=== PATIENT | male | born 1940 | race Caucasian/White ===

== ENCOUNTER 2017-04-23 07:13 | Emergency (ER) | payer BC, OTHER ==
[~2017-04-23] VITALS: Ht 167.6 cm; Wt 80.6 kg
[~2017-04-23 07:13] MED LIST: ALBUAER2 INH; ASCO10003 PO; ASPCH81 PO; CALC500C3 PO; CODCAP4 PO; CYAN100020 PO; FLNIN NAE; HYDR-4313 PO; LEVO125T72 PO; LSNP/30 PO; OMEP40CA41 PO; TIOTCAP INH; TRAM-10 PO
[2017-04-23] MEDS ORDERED: RANITIDINE HCL 50 MG/100 ML D5W IV STA (07:20)
[2017-04-23] MEDS ORDERED: DEXAMETHASONE SOD INJ 4 MG/ML VIAL IV STA (07:20)
[2017-04-23 07:21] VITALS: TEMP 36.5; Ht 167.6 cm; Wt 80.6 kg
--- NOTE | 2017-04-23 07:23 | EMERGENCY ROOM VISIT NOTE ---
History Report prepared by Elaine: Sera Robertson Under the Supervision of: Dr. Jerson Hamm M.D. First contact with patient: 07:11 Stated Complaint: ALLERGIC REACTION History of Present Illness The patient is a 76 year old male who presents to the Emergency Room with complaints of a facial swelling and possible allergic reaction beginning this morning when he woke up. The patient states that he had sinus surgery at [facility] yesterday and had his sinuses cleaned out. He reports that today he woke up with facial swelling and is having difficulty breathing out of his nose. He complains of lip, eye, mouth, and throat swelling. He denies any itchiness, chest pain, shortness of breath, nausea, vomiting, fevers. The patient states that he was unconscious for the surgery and had a breathing tube in during the surgery. He notes that he is not on any blood thinners. He reports that he is on an antibiotic and got Benadryl prior to arrival. Source of History: patient, family Onset: this morning Position: other (facial) Quality: other (allergic reaction) Timing: constant Associated Symptoms: No fevers, No chest pain, No SOB, No nausea, No vomiting Note: He complains of lip, eye, mouth, and throat swelling. He denies any itchiness. Review of Systems See HPI for pertinent positives & negatives. A total of 10 systems reviewed and were otherwise negative. Past Medical & Surgical Medical Problems: (1) Hypertension (2) Hypothyroid Old medical records were reviewed. Nurse's notes were reviewed and I agree with. Family History No pertinent family history stated. Social History Smoking Status: Never Smoker Marital Status: Housing Status: lives with significant other Occupation Status: retired Current/Historical Medications Scheduled Amlodipine (Norvasc), 5 MG PO DAILY Ascorbic Acid (Vitamin C), 1,000 MG PO DAILY Aspirin (Aspirin Ec), 81 MG PO DAILY Atorvastatin (Lipitor), 20 MG PO DAILY Bacitracin Zinc (Bacitracin), 1 APPLN TOP UD Bromfenac Sodium (Ophth) (Prolensa), 1 DOSE UD Calcium (Calcium), 500 MG PO DAILY Clindamycin Hcl (Clindamycin Hcl), 300 MG PO TID Cod Liver Oil (Cod Liver Oil 1000 mg), 1 CAP PO DAILY Emollient (Aquaphilic), 1 APPLN TOP UD Fluticasone Propionate (Nasal) (Flonase Allergy Relief), 2 SPRAYS TAMY DAILY Gatifloxacin (Ophth) (Zymaxid), 1 DROPS OP UD Levothyroxine Sodium (Levothyroxine Sodium), 125 MCG PO DAILY Lisinopril (Zestril), 30 MG PO DAILY Omeprazole (Prilosec), 40 MG PO DAILY Prednisolone Acetate (Ophth) (Pred Forte 1% Oph), 1 DROPS OP UD Saline ([place] Nasal [place]), 2 SPRAYS TAMY 10XDAILY Sildenafil Citrate (Viagra), 50 MG PO PRN Tiotropium [place] (Spiriva [place]), 1 CAP INH DAILY Trazodone Hcl (Trazodone), 50 MG PO HS Scheduled PRN Albuterol Sulfate (Proair Respiclick), 2 PUFFS INH Q4 PRN for Wheezing Hydrocodone/Acetaminophen 5MG/325MG ([place] 5MG/325MG), 1 TABLET PO Q6 PRN for Severe Pain Tramadol (Ultram), 50 MG PO Q6 PRN for Pain Allergies Coded Allergies: Amoxicillin (Verified Allergy, Severe, HIVES, 12/17/15) Sulfa Drugs (Verified Allergy, Severe, HIVES, 12/17/15) Penicillins (Verified Allergy, Intermediate, HIVES, 12/17/15) Physical Exam Vital Signs Date Time Temp Pulse Resp B/P (MAP) Pulse Ox O2 Delivery O2 Flow Rate FiO2 04/23/17 08:40 64 18 161/104 95 04/23/17 07:22 65 04/23/17 07:21 36.5 64 20 183/112 93 Room Air Physical Exam General: Well developed well nourished in no acute distress, breathing comfortably on room air. Normal speech. Older male in no respiratory stress. HEENT: Pupils are equal round and reactive to light. Extraocular movements are intact. Oropharynx is pink with moist mucous membranes. The patient has tape on his nose post operative, he has some swelling under his eyes but no swelling to his tongue or bottom lip. There is mild swelling to the upper slip and posterior oropharynx. He has a cough with occasional red tinged sputum. Neck: Supple with a midline trachea. No meningeal signs or stiffness, no JVD or bruits. No Stridor. Chest: Clear to auscultation bilaterally. No wheezes or rhonchi. No increased work of breathing. Heart: regular rate and rhythm. Abdomen: Soft nontender, nondistended without rebound guarding or rigidity. Extremities: No cyanosis clubbing or edema. No calf tenderness or assymetry Spine/Back. Non tender to palpation. No CVA tenderness Skin: Good turgor without rashes. Neurologic exam: Cranial nerves two through 12 are intact. Motor and sensation are intact and symmetrical throughout. Medical Decision & Procedures Laboratory Results 04/23/17 07:25 Red Blood Count 4.23, Mean Corpuscular Volume 93.4, Mean Corpuscular Hemoglobin 31.4, Mean Corpuscular Hemoglobin Concent 33.7, Mean Platelet Volume 10.3, Neutrophils (%) (Auto) 64.5, Lymphocytes (%) (Auto) 20.2, Monocytes (%) (Auto) 11.6, Eosinophils (%) (Auto) 2.8, Basophils (%) (Auto) 0.5, Neutrophils # (Auto ) 5.29, Lymphocytes # (Auto) 1.66, Monocytes # (Auto) 0.95, Eosinophils # (Auto ) 0.23, Basophils # (Auto) 0.04 04/23/17 07:25 Test 04/23/17 07:25 White Blood Count 8.20 K/uL (4.8-10.8) Red Blood Count 4.23 M/uL (4.7-6.1) Hemoglobin 13.3 g/dL (14.0-18.0) Hematocrit 39.5 % (42-52) Mean Corpuscular Volume 93.4 fL (80-100) Mean Corpuscular Hemoglobin 31.4 pg (25-34) Mean Corpuscular Hemoglobin Concent 33.7 g/dl (32-36) Platelet Count 187 K/uL (130-400) Mean Platelet Volume 10.3 fL (7.4-10.4) Neutrophils (%) (Auto) 64.5 % Lymphocytes (%) (Auto) 20.2 % Monocytes (%) (Auto) 11.6 % Eosinophils (%) (Auto) 2.8 % Basophils (%) (Auto) 0.5 % Neutrophils # (Auto) 5.29 K/uL (1.4-6.5) Lymphocytes # (Auto) 1.66 K/uL (1.2-3.4) Monocytes # (Auto) 0.95 K/uL (0.11-0.59) Eosinophils # (Auto) 0.23 K/uL (0-0.5) Basophils # (Auto) 0.04 K/uL (0-0.2) RDW Standard Deviation 47.9 fL (36.4-46.3) RDW Coefficient of Variation 14.0 % (11.5-14.5) Immature Granulocyte % (Auto) 0.4 % Immature Granulocyte # (Auto) 0.03 K/uL (0.00-0.02) Prothrombin Time 10.7 SECONDS (9.0-12.0) Prothromb Time International Ratio 1.0 (0.9-1.1) Activated Partial Thromboplast Time 26.6 SECONDS (21.0-31.0) Partial Thromboplastin Ratio 1.0 Anion Gap 7.0 mmol/L (3-11) Est Creatinine Clear Calc Drug Dose 46.2 ml/min Estimated GFR () 57.0 Estimated GFR (Non- 49.1 BUN/Creatinine Ratio 14.0 (10-20) Calcium Level 8.7 mg/dl (8.5-10.1) Laboratory studies as stated above per my review. Medications Administered Medications (Trade) Dose Ordered Sig/Nakia Route Start Time Stop Time Status Last Admin Dose Admin Dexamethasone Sodium Phosphate (Decadron Inj) 10 mg NOW STAT IV 04/23/17 07:20 04/23/17 07:22 DC 04/23/17 07:35 10 MG Ranitidine HCl (zANTac IV) 50 mg NOW STAT IV 04/23/17 07:20 04/23/17 07:22 DC 04/23/17 07:35 50 MG ED Course 0715: Past medical records reviewed. The patient was evaluated in room A2, and a complete history and physical examination were performed. 0720: Zantac IV 50mg IV, Decadron Inj 10mg IV. 0725: I spoke to Dr. Farias of ENT. He recommended calling the surgeon. 0812: I spoke to Dr. Man of surgery at [facility]. He is going to call Dr. Monroe and try to get him seen in the clinic today. 0818: I reevaluated the patient. He is unchanged and stable. 0824: I updated the patient and his family. They will be going to [place] for evaluation. 0841: Upon reevaluation, the patient is doing well. I discussed the results and treatment plan with the patient and his family. They verbalized agreement of the treatment plan. The patient was discharged and will be going to the ENT clinic in [place]. Medical Decision Differential diagnosis includes allergic reaction, post operative swelling, infection. Blood pressure Screening: Patient was found to have an elevated blood pressure and was referred to their primary doctor for recheck and further treatment. Medication Reconciliation: I attest that I have personally reviewed the patient' s current medication list. This patient comes in as described above he comes in for possible allergic reaction. On exam, he has facial swelling however he did have significant ENT/ nasal's reconstructive surgery done 2 days ago in [place]. He has no hives. The lips and tongue themselves are not swollen. He does have some swelling of his uvula and underneath his eyes. I think most this is likely postoperative. He appears in no respiratory distress and has no stridor. He had been given Benadryl prior to arrival by EMS and I gave him Solu-Medrol IV as well as Zantac. I called her local ENT doctor who recommended we talk to his surgeon [place]. I talked to Dr. Man in [place] who had attempted to get Dr. Braxton to see the patient however he is out of town. He recommends that we send the patient to ENT clinic in [place]. At this point, I think is likely an allergic reaction but more postoperative swelling which I think is likely to be expected however I do do think that and senior clinical research associate to see this. Dr. Man agrees and the patient was sent by private vehicle down to [place] for further treatment and evaluation by ENT. Consults Time Called: 07 Consulting Physician: Dr. Farias - ENT Returned Call: [address] Farias of ENT. He recommended calling the surgeon. Additional Consults: Time Called: 08 Consulted Physician: Dr. Man - [facility] Returned Call: 08 Additional Comments: I spoke to Dr. Man of surgery at [facility]. He is going to call Dr. Monroe and try to get him seen in the clinic today. Impression Primary Impression: Facial swelling Additional Impression: Post-operative complication Scribe Attestation The scribe's documentation has been prepared under my direction and personally reviewed by me in its entirety. I confirm that the note above accurately reflects all work, treatment, procedures, and medical decision making performed by me. Departure Information Dispostion Home / Self-Care Forms HOME CARE DOCUMENTATION FORM, IMPORTANT VISIT INFORMATION Patient Instructions My [facility] Additional Instructions Go directly to the ENT clinic in [place]. You will see Dr. Man. Take the F elevator to the fourth floor Return if: Worsening symptoms, shortness of breath, fever or chills, any new problems or concerns. Problem Qualifiers
[2017-04-23] MEDS ORDERED: OMEP40CA41 PO (07:42)
[2017-04-23] MEDS ORDERED: ALBU18002 INH (07:42)
[2017-04-23] MEDS ORDERED: EMOLOIN TOP (07:42)
[2017-04-23] MEDS ORDERED: ATOR-22 PO (07:42)
[2017-04-23] MEDS ORDERED: AMLO-110 PO (07:42)
[2017-04-23] MEDS ORDERED: FLUT0.15 NAE (07:42)
[2017-04-23] MEDS ORDERED: GATI0.5S OP (07:42)
[2017-04-23] MEDS ORDERED: BACI1OIN TOP (07:42)
[2017-04-23] MEDS ORDERED: CLIN150C15 PO (07:42)
[2017-04-23] MEDS ORDERED: ASPI81TA28 PO (07:42)
[2017-04-23] MEDS ORDERED: LEVO125T5 PO (07:42)
[2017-04-23] MEDS ORDERED: TRAM-10 PO (07:42)
[2017-04-23] MEDS ORDERED: VGR50 PO (07:42)
[2017-04-23] MEDS ORDERED: LISI1TAB3 PO (07:42)
[2017-04-23] MEDS ORDERED: PRED1SUS3 OP (07:42)
[2017-04-23] MEDS ORDERED: SPRIN/30 INH (07:42)
[2017-04-23] MEDS ORDERED: HYDR-5688 PO (07:42)
[2017-04-23] MEDS ORDERED: ASCO10003 PO (07:42)
[2017-04-23] MEDS ORDERED: SALI0.6510 NAE (07:42)
[2017-04-23] MEDS ORDERED: TRAZ50TA35 PO (07:42)
[2017-04-23] MEDS ORDERED: BROM0.07 (07:42)
[2017-04-23] MEDS ORDERED: CALC500T83 PO (07:42)
[2017-04-23] MEDS ORDERED: COD1000C PO (07:42)
[2017-04-23 07:50] LABS: BASO % 0.5 %; BASO ABS # 0.04 K/uL (0-0.2); COMPLETE YES; EOS % 2.8 %; HEMATOCRIT 39.5 % (42-52); IG% 0.4 %; LYMPH % 20.2 %; LYMPH ABS # 1.66 K/uL (1.2-3.4); MEAN CELL VOLUME 93.4 fL (80-100); MEAN CORPUSCULAR HEMOGLOBIN 31.4 pg (25-34); MEAN CORPUSCULAR HGB CONC 33.7 g/dl (32-36); MEAN PLATELET VOLUME 10.3 fL (7.4-10.4); MONO % 11.6 %; NEUT % 64.5 %; PLATELET COUNT 187 K/uL (130-400); RED BLOOD COUNT 4.23 M/uL (4.7-6.1)
[2017-04-23 08:07] LABS: PROTHROMBIN TIME (PATIENT) 10.7 SECONDS (9.0-12.0)
[2017-04-23 08:20] LABS: CALCIUM 8.7 mg/dl (8.5-10.1); CREATININE 1.4 mg/dl (0.60-1.40); POTASSIUM 4.2 mmol/L (3.5-5.1)
[2017-04-23 08:40] VITALS: BP 161/104; PULSE 64; O2SAT 95
== END 2017-04-23 08:42 | disposition home or self-care (01) ==
LOC: EDBD 07:13 → C.EDA 07:18
DX: R22.0 Localized swelling, mass and lump, head (principal); Z98.890 Other specified postprocedural states; I10 Essential (primary) hypertension; E03.9 Hypothyroidism, unspecified; Z79.82 Long term (current) use of aspirin; Z79.899 Other long term (current) drug therapy

== ENCOUNTER → 2018-01-19 | Outpatient (CLI) | payer BC, OTHER ==
[~2018-01-19] MED LIST changes: +ALBU18002 INH; -ALBUAER2 INH; +AMLO-110 PO; -ASPCH81 PO; +ASPI81TA28 PO; +ATOR-22 PO; +BACI1OIN TOP; +BROM0.07; -CALC500C3 PO; +CALC500T83 PO; +CLIN150C15 PO; +COD1000C PO; -CODCAP4 PO; -CYAN100020 PO; +EMOLOIN TOP; -FLNIN NAE; +FLUT0.15 NAE; +GATI0.5S OP; -HYDR-4313 PO; +HYDR-5688 PO; +LEVO125T5 PO; -LEVO125T72 PO; +LISI1TAB3 PO; -LSNP/30 PO; +PRED1SUS3 OP; +SALI0.6510 NAE; +SPRIN/30 INH; -TIOTCAP INH; +TRAZ50TA35 PO; +VGR50 PO
[2018-01-19 13:08] LABS: BASO % 0.4 %; BASO ABS # 0.03 K/uL (0-0.2); EOS % 7.4 %; EOS ABS # 0.54 K/uL (0-0.5); HEMATOCRIT 40.1 % (42-52); HEMOGLOBIN 13.7 g/dL (14.0-18.0); IG# 0.01 K/uL (0.00-0.02); LYMPH % 14.2 %; LYMPH ABS # 1.04 K/uL (1.2-3.4); MEAN CELL VOLUME 89.7 fL (80-100); MEAN CORPUSCULAR HEMOGLOBIN 30.6 pg (25-34); MEAN CORPUSCULAR HGB CONC 34.2 g/dl (32-36); MEAN PLATELET VOLUME 10.2 fL (7.4-10.4); MONO % 12.1 %; MONO ABS # 0.89 K/uL (0.11-0.59); NEUT % 65.8 %; NEUT ABS # 4.82 K/uL (1.4-6.5); PLATELET COUNT 242 K/uL (130-400); RED CELL DISTRIBUTION WIDTH SD 46.4 fL (36.4-46.3); WHITE BLOOD COUNT 7.33 K/uL (4.8-10.8)
[2018-01-19 13:12] LABS: PTT PATIENT 26.1 SECONDS (21.0-31.0)
[2018-01-19 13:31] LABS: ALT/SGPT 21 U/L (12-78); AST/SGOT 19 U/L (15-37); BLOOD UREA NITROGEN 12 mg/dl (7-18); CALCIUM 9.4 mg/dl (8.5-10.1); CARBON DIOXIDE 26 mmol/L (21-32); GLUCOSE 103 mg/dl (70-99); POTASSIUM 4.2 mmol/L (3.5-5.1); SODIUM 139 mmol/L (136-145)
[2018-01-19 13:33] LABS: ALKALINE PHOSPHATASE 69 U/L (45-117); TOTAL PROTEIN 7.6 gm/dl (6.4-8.2)
== END | disposition home or self-care (01) ==
LOC: C.LAB1850 12:25
PROVIDERS: ATTEND Internal Medicine Pulmonary Disease
DX: J44.9 Chronic obstructive pulmonary disease, unspecified (principal)

== ENCOUNTER → 2018-02-11 | Day surgery (SDC) | payer BC, OTHER ==
[2018-02-11] VITALS (7 sets, daily range): BP systolic 130–175; BP diastolic 69–90; PULSE 52–60; TEMP 36.5–37; O2SAT 95–98; Ht 167.6 cm; Wt 86.7 kg
[~2018-02-11] VITALS: Ht 167.6 cm; Wt 86.7 kg
[~2018-02-11] MED LIST changes: +DEXTROSE 5% 1000ML 500 ML IV SCH; +FENTANYL CITRATE INJ 50 MCG/1 ML 2 ML VIAL IV ONE; +LEVALBUTEROL 1.25MG/3ML NEB INH ONE; +LIDOCAINE 4% INH SOLN 4 ML BTL TOP ONE; +LIDOCAINE HCL 2% LOCAL 50ML VIAL INSTIL ONE; +LIDOCAINE VISCOUS 2% 100ML TOP ONE; +MIDAZOLAM HCL 5 MG/ML 1 ML VIAL IV ONE; +NURSING VERBAL MED ORDER ONE; +OXYMETAZOLINE HCL 0.05% NA SPR 15 ML BTL ONE
--- NOTE | 2018-02-11 07:33 | Pre Sedation Assessment ---
Pre Sedation Assessment General Date of Sedation: Feb 11, 2018. Pre-Sedation Airway Assessment Smoking Status: Never Smoker Mallampati Classification: Class II ASA Classification: Class II Procedure Planning Contraindications for Sedation: None Current Medications Reviewed: Yes Notes The planned sedation has been discussed with the patient. Informed Consent was obtained. I have identified the patient, determined the appropriateness of sedation and have assessed the patient immediately prior to the procedure. All medicine(s) and interventions are by my order.
--- NOTE | 2018-02-11 07:33 | History & Physical Bridge Note ---
H&P Re-Evaluation Bridge Note: I have examined the patient, reviewed the History & Physical and in the interval since the performance of the History & Physical I have noted the following changes of clinical significance: No changes noted
--- NOTE | 2018-02-11 09:47 | Post Sedation Assessment ---
Post Sedation Assessment General Date of Sedation Feb 11, 2018. Vital Signs: Vital Signs Past 12 Hours Date Time Temp Pulse Resp B/P (MAP) Pulse Ox O2 Delivery O2 Flow Rate FiO2 02/11/18 09:40 55 14 137/70 96 Oxymask 6 02/11/18 09:35 60 16 148/83 98 Oxymask 6 02/11/18 09:30 54 16 158/84 100 Oxymask 6 02/11/18 09:25 57 16 149/78 100 Oxymask 6 02/11/18 09:15 55 17 157/99 100 Oxymask 8 02/11/18 08:06 36.9 53 20 134/69 (90) 95 Room Air Post Procedure Recovery Score Activity: (2) Moves 4 extremities * Respiration: (2) Deep breath/cough Circulation: (2) +/-20% PreAnes Value Consciousness: (1) Arouseable (by name) Oxygen Saturation: (1) O2 needed for >90% Post Anesthesia Score: 8 Discharge Sedation Level of Care: Fast Track Phase II Post Sedation Plan On clinical assessment, the patient appears to have tolerated the sedation without complications. Patient is recovering as anticipated. Patient will continue to be monitored by nursing and may be discharged when sedation discharge criteria are met per below protocol. Upon Completions of procedure and additional 15 minutes continue every 5 minute vital signs and the P.A.R. score; then discharge to a Phase I or Fast Track to Phase II per the following guidelines: * Discharge Patient to appropriate Phase II area if PAR is 8 or greater or return to pre- procedure baseline. The post - procedure orders will be as directed. * If PAR score is less than 8 or not return to pre-procedure baseline then patient will follow Phase I monitoring till PAR is reached for Phase II. The Phase I may be done in procedure room or may call to secure a Phase I area. * If naloxone or flumazenil are used for reversal, hold in Phase I for an additional 60 -120 minutes before discharge to Phase II. Please call the Sedation Physician to re-evaluate and complete post-note for discharge to Phase II area. Do NOT discharge from procedure sedation or Phase 1 until post- sedation evaluation note is complete by procedure /sedation MD Sedation Discharge Instructions to be given to the patient at discharge to home.
--- NOTE | 2018-02-11 09:49 | [facility] Operative Report ---
Operative Report Operative Date Feb 11, 2018. Pre-Operative Diagnosis COUGH, DYSPNEA Post-Operative Diagnosis COUGH, DYSPNEA Chronic Mucopurulent Bronchitis Procedure(s) Performed BRONCHOSCOPY Surgeon DR ALVARADO Estimated Blood Loss 0 Findings Chronic Mucopurulent Bronchitis Specimens RIGHT AND LEFT LUNG WASHING Disposition I attest to the content of the Intraoperative Record and any orders documented therein. Any exceptions are noted below.
--- NOTE | 2018-02-11 09:52 | Discharge Instructions ---
Discharge Instructions Date of Service Feb 11, 2018. Admission Reason for Admission: Copd, Cough, Shortness Of Breath Discharge Discharge Diagnosis / Problem: Chronic Mucopurulent Bronchitis Discharge Goals Goal(s): Diagnostic testing Activity Recommendations Activity Limitations: resume your previous activity Lifting Limitations: none Exercise/Sports Limitations: none May Resume Sexual Activity: when tolerated Shower/Bathe: no limitations Driving or Machine Use: resume 1 day after discharge None . Instructions / Follow-Up Instructions / Follow-Up ACTIVITY RECOMMENDATIONS: * Rest today, resume normal activity tomorrow. * Do not drive today. SPECIAL CARE INSTRUCTIONS: * Call your physician if you experience any chest or shoulder pain, fever, coughing, spitting up blood (more than 2 teaspoons) or excessive shortness of breath. * Remove dressing from IV site (where needle was placed into the vein) after 2 hours. Apply a warm, moist compress to site if irritation occurs. Call physician if site becomes red or painful to touch. FOLLOW UP VISIT: * Keep any scheduled doctor appointments. Current Hospital Diet Patient's current hospital diet:Regular Discharge Diet Recommended Diet: Regular Diet Fluid Restriction: None Procedures Procedures Performed: BRONCHOSCOPY Pending Studies Studies pending at discharge: no Medical Emergencies . Who to Call and When: Medical Emergencies: If at any time you feel your situation is an emergency, please call 911 immediately. . Non-Emergent Contact Non-Emergency issues call your: Measurement Psychologist Call Non-Emergent contact if: temperature is above 101 . . "Provider Documentation" section prepared by Pedro Dsouza. .
--- NOTE | 2018-02-11 11:04 | OPERATIVE REPORT ---
DATE OF OPERATION: 02/11/2018 PROCEDURE: Fiberoptic bronchoscopy with bronchoalveolar lavage. INDICATIONS: Persistent chest congestion in a patient with COPD, refractory to outpatient therapy. ANESTHESIA PREOPERATIVELY: None. ANESTHESIA DURING PROCEDURE: 3 mg IV Versed, 50 mcg IV fentanyl, 20 mL 2% Xylocaine spray above and below the cords, 4% viscous Xylocaine intranasally. PROCEDURE: Fiberoptic bronchoscope was inserted into the right naris with minimal difficulty and passed to the left true vocal cords. The cords appear to approximate normally with phonation without evidence of lesions or paralysis. The scope was then introduced in the right and left tracheobronchial tree. The arlette was sharp. The right main stem bronchus was explored initially and no endobronchial lesions were seen. Right upper lobe, the apical posterior, anterior segments, bronchus intermedius, right middle lobe, medial lateral segments and all basilar segments right lower lobe were found to be free of endobronchial lesions. Moderate amount of mucopurulent and mucoviscous secretion was lavaged from all lobar segments until clear. Mucus pitting with bronchial crypts and clefts was seen throughout the right tracheobronchial tree. Left main stem bronchus was explored and no endobronchial lesions were seen. Left upper lobe, lingular subdivision and left lower lobe were free of endobronchial lesions down to subsegmental bronchi. The left lower lobe was lavaged with normosol and the aspirate sent for appropriate studies. No brushings or biopsies were deemed necessary. The patient tolerated the procedure well and was given a nebulizer treatment with Xopenex 1.25 mg and transferred to the medical treatment unit hemodynamically stable, no signs of respiratory compromise. Will await microbiological and cytologic examination of the bronchial washings. I attest to the content of the Intraoperative Record and any orders documented therein. Any exception s are noted below.
[2018-02-15 11:58] LABS: HERPES SIMPLEX VIRUS CULT ISOLATED (NOT ISOLATED)
== END | disposition home or self-care (01) ==
LOC: C.ACU 07:19
PROVIDERS: ATTEND Internal Medicine Pulmonary Disease
DX: R09.89 Other specified symptoms and signs involving the circulatory and respiratory systems (principal); R06.00 Dyspnea, unspecified; J44.9 Chronic obstructive pulmonary disease, unspecified; Z79.82 Long term (current) use of aspirin; Z88.0 Allergy status to penicillin; Z88.2 Allergy status to sulfonamides

== ENCOUNTER 2024-01-17 06:55 | Inpatient (IN) ==
--- OUTSIDE RECORDS SUMMARY | 2024-01-17 07:02 | External Medical Summary | Summary of Care ---
Author Name Unknown Organization [facility] Address [address] [place] [address] Phone [phone] Care Team Providers Care Paediatric Thoracic Physician Name Role Phone Soraya Dumont Primary Care Provider [phone] Encounter Details Date Type Department Care Team (Latest Contact Info) Description 01/15/2024 7:40 AM EDT - 01/15/2024 11:39 AM EDT Hospital Encounter Radiology Film File [address] [place] [address] Arrived Discharge Disposition: Home - Self Care Allergies Active Allergy Reactions Criticality Noted Date Comments Amoxicillin 09/06/1998 hives and swelling Clindamycin Edema airway,Edema face/lips/tongue High 04/26/2017 Sulfa Antibiotics Hives 08/09/2012 documented as of this encounter (statuses as of 01/16/2024) Medications Medication Sig Dispensed Refills Start Date End Date Status ASPIRIN 81 MG PO TABSIndications:Othe r specified prophylactic or treatment measure one tab by mouth daily 0 5 02/22/2007 Active COD LIVER OIL 1000 MG PO CAPS one pill each day 0 12/19/2014 Active CALCIUM 500 MG PO TABS one pill each day 0 12/19/2014 Active VITAMIN C 1000 MG PO TABS one pill each day 0 12/19/2014 Active BLOOD PRESSURE CUFF MISCIndications:HTN, goal below 140/90 use as directed. 1 Each 0 12/26/2014 Active fluticasone (FLONASE) 50 MCG/ACT nasal sprayIndications:Acu te sinusitis Administer 2 Sprays into each nostril daily. 3 Bottle 1 02/11/2017 Active saline (OCEAN) 0.65 % nasal spray Apply 2 sprays to both nostrils 10 times per day 30 mL 12 04/21/2017 Active latanoprost (XALATAN) 0.005 % ophthalmic solution Instill 1 Drop into both eyes at bedtime. 0 04/20/2017 Active VENTOLIN HFA 108 (90 Base) MCG/ACT inhalerIndications:C OPD, mild (HCC) USE 2 INHALATIONS EVERY 4 HOURS NEEDED FOR WHEEZING 3 Inhaler 1 08/03/2017 Active albuterol-ipratropiu m (DUONEB) 2.5-0.5 MG/3ML nebulizer solution 0 11/18/2017 Active Mometasone Furoate 50 MCG/ACT nasal spray 0 09/05/2019 Active Triamcinolone Acetonide 0.1 % External Cream (ARISTOCORT)Indicati ons:Eczema, unspecified type Apply topically to affected area 3 times a day. Apply to itchy spot on R martinez 80 g 5 08/07/2020 Active Timolol Maleate 0.5 % Ophthalmic Solution (Timoptic) Instill 1 Drop into the right eye every morning. 0 01/20/2022 Active Tiotropium [place] Monohydrate 18 MCG Inhalation Capsule (Spiriva) Inhale 1 Capsule by mouth in the morning. For inhaler only, do not swallow. . 0 Active Clotrimazole 1 % External Cream (Lotrimin) APPLY APPLICATION TO SKIN TWICE A DAY NEEDED FOR RIGHT LOWER LEG RASH UNTIL RESOLVED, THEN 48 HOURS MORE TO ELIMINATE SUSPECTED FUNGAL DISEASE. FOR RIGHT LOWER LEG RASH UNTIL RESOLVED, THEN 48 HOURS MORE TO ELIMINATE SUSPECTED FUNGAL DISEASE. 0 05/19/2022 Active Timolol Maleate 0.5 % Ophthalmic Solution (Timoptic) INSTILL 1 DROP IN THE RIGHT EYE EVERY MORNING 5 mL 3 04/30/2023 4 Active amLODIPine Besylate 5 MG Oral Tablet (Norvasc)Indications :HTN, goal below 150/90 TAKE ONE TABLET BY MOUTH EVERY DAY 90 Tablet 3 02/24/2023 4 Active Lisinopril 30 MG Oral TabletIndications:HT N, goal below 130/80 Take 0.5 Tablets by mouth in the morning. 30 Tablet 11 08/06/2023 Active Tamsulosin HCl 0.4 MG Oral Capsule (Flomax)Indications: BPH with obstruction/lower urinary tract symptoms Take 1 Capsule by mouth in the morning. 100 Capsule 1 08/27/2023 Active Finasteride 5 MG Oral Tablet (Proscar)Indications :BPH without obstruction/lower urinary tract symptoms Take 1 Tablet by mouth in the morning. Medication is for prostate. 100 Tablet 3 10/18/2023 Active Levothyroxine Sodium 75 MCG Oral Tablet (Levoxyl) Take 1 Tablet by mouth in the morning. (at least 30 min prior to breakfast or other meds). 100 Tablet 2 10/18/2023 Active Apixaban 5 MG Oral Tablet (Eliquis)Indications :New onset a-fib (HCC) Take 1 Tablet by mouth in the morning and 1 Tablet before bedtime. 180 Tablet 3 10/19/2023 Active Omeprazole 40 MG Oral Capsule Delayed Release (PriLOSEC)Indication s:Esophageal reflux TAKE ONE CAPSULE BY MOUTH EVERY DAY 100 Capsule 3 12/06/2023 5 Active Atorvastatin Calcium 20 MG Oral Tablet (Lipitor)Indications :Dyslipidemia, goal LDL below 100 TAKE ONE TABLET BY MOUTH EVERY DAY 100 Tablet 1 12/12/2023 Active Gabapentin 800 MG Oral Tablet (Neurontin)Indicatio ns:Chronic kidney disease, stage 3a (HCC),Degeneration of lumbosacral intervertebral disc,Restless legs syndrome Take 1 Tablet by mouth at bedtime. TAKE 1 TO 2 TABLETS BY MOUTH AT BEDTIME FOR BACK PAIN / SCIATICA AND RESTLESS LEG 180 Tablet 3 12/16/2023 Active traMADol HCl 50 MG Oral Tablet (Ultram)Indications: Spasm of lumbar paraspinous muscle Take 1 Tablet by mouth every 6 hours as needed for Pain, Moderate. 30 Tablet 0 12/16/2023 Active clonazePAM 0.5 MG Oral Tablet (KlonoPIN)Indication s:Chronic insomnia Take 1 Tablet by mouth at bedtime as needed for Anxiety or Insomnia. 30 Tablet 0 12/16/2023 Active HYDROcodone-Acetamin ophen 5-325 MG Oral TabletIndications:Ot her idiopathic scoliosis, thoracolumbar region Take 1 Tablet by mouth every 6 hours as needed for Pain, Mild. 30 Tablet 0 12/20/2023 Active Latanoprost 0.005 % Ophthalmic Solution (Xalatan) INSTILL ONE DROP IN EACH EYE AT BEDTIME 10 mL 3 12/31/2023 5 Active Montelukast Sodium 10 MG Oral Tablet (Singulair)Indicatio ns:COPD, mild (HCC) TAKE ONE TABLET BY MOUTH EVERY DAY BEFORE BEDTIME 90 Tablet 3 12/29/2023 Active Lidocaine 4 % External Patch (Aspercreme) Place 1 Patch over 12 hours topically on the skin daily. 30 Patch 0 01/15/2024 Active documented as of this encounter (statuses as of 01/16/2024) Active Problems Problem Noted Date Diagnosed Date Presence of cardiac pacemaker 11/12/2023 Paroxysmal atrial fibrillation 11/12/2023 KAIA (obstructive sleep apnea) 11/12/2023 Chronic insomnia 11/12/2023 COPD, group B, by GOLD 2017 classification 10/12 Overview: Per COPD GOLD Classification Primary open-angle glaucoma, bilateral, moderate stage 08/14/2022 Chronic kidney disease, stage 3a 07/13/2022 Overview: Per CKD protocol Ascending aorta dilatation 03/05/2022 Prediabetes 03/11/2021 Overview: Per Prediabetes protocol AAA (abdominal aortic aneurysm) 12/03/2014 MEDICATION USE AGREEMENT 04/12/2014 Peyronie's disease 12/26/2010 HTN, goal below 130/80 09/06/2009 Overview: Modified per HTN Taxonomy. Acquired hypothyroidism 01/31/1998 Gastroesophageal reflux disease with esophagitis 01/31/1998 Lumbar degenerative disc disease documented as of this encounter (statuses as of 01/16/2024) Resolved Problems Problem Noted Date Diagnosed Date Resolved Date PSVT (paroxysmal supraventri cular tachycardia) 08/14/2022 11/12/2023 Dilated aortic root 03/05/2022 06/30/20 22 Overview: DUPLICATE Hypertensive heart and kidne y disease without heart failure and with stage 3a chronic kidney disease 09/09/2020 11/12/2023 Overview: Per CKD protocol Former smoker 11/17/2019 11/12/2023 Hypertensive heart and kidne y disease without heart failure and with chronic kidney disease stage III 04/04/2019 09/12/2020 Overview: Per CKD protocol Hypertensive kidney disease with chronic kidney disease stage III 12/30/2018 12/30/2018 Dyslipidemia, goal LDL below 100 12/04/2016 11/12/2023 COPD, mild 12/26/2014 10/15/2022 Overview: Per COPD GOLD Classification SOB (shortness of breath) 11/26/2014 Bradycardia 11/26/2014 11/03/2018 Kidney disease, chronic, sta ge III (GFR 30-59 ml/min) 12/25/2013 04/12/2019 Overview: Per CKD protocol #1 Shortness of breath 06/17/2012 11/03/19 19 BPH without obstruction/lowe r urinary tract symptoms 06/26/2011 11/12/2023 CARBUNCLE OF BUTTOCK-L side 11/03/2010 11/03/2018 ADVANCE DIRECTIVE INFORMATION 06/29/2005 11/03/2018 Overview: on file per pt. Screening for prostate cancer 09/12/2002 01/09/2009 Overview: Resolved per Screening Diagnosis Protocol #6 SCREEN MAL NEOP-RECTUM 09/12/200201/09 Overview: Resolved per Screening Diagnosis Protocol #6 Allergic rhinitis 09/12/2002 12/30/2018 CARPAL TUNNEL SYNDROME, LEFT, MILD 12/21/2001 11/03/2018 NUMBNESS, LEFT FOREARM 11/23/200111/03 BURSITIS, RIGHT SHOULDER 08/31/200112/2018 LATERAL EPICONDYLITIS, LEFT ELBOW 08/31/2001 11/03/2018 DERMATITIS, CONTACT, RIGHT CHEEK 08/31/2001 11/03/2018 ROUTINE MEDICAL EXAM 08/31/2001 019 Dyslipidemia, goal to be determined 08/31/2001 10/03/2013 Idiopathic scoliosis 024 BENIGN HYPERTENSION 09/06/20 09 Overview: Modified per HTN Taxonomy. documented as of this encounter (statuses as of 01/16/2024) Immunizations Name Administration Dates Next Due COVID-19 mRNA, LNP-s, No Pre serve, 2-Dose Series (Moderna) 06/05/2022,02/03/2021,01/06/2021 COVID-19, mRNA, LNP-s, PF, B ooster, 100mcg/0.5mg (Moderna) 09/29/2021 PPD 07/02/2009 Pneumococcal Conjugate Vacc, 13 Valent (Prevnar) 12/14/2016 Pneumococcal Polysaccharide PPV23 (Pneumovax) 06/27/2009 Seasonal Influenza, PF, 6 M & above, IM , (FluLaval or Fluzone) 08/01/2019,08/01/2018 Seasonal Influenza, QUAD, wi th Preserv, 6 mons & Above, 0.5 mL, IM 07/30/2023,08/03/2020,09/01/2017 Seasonal Influenza, Quadriva lent Hd, 65+ Yrs 08/09/2021 Seasonal Influenza, Quadriva lent, No Preserve, IM 09/30/2015 Seasonal Influenza, Split, I IV3, With Preserve, Inj 08/12/2019,09/01/2016,07/25/2014,07/2013,09/03/2010 07/25/2015 TD - Tetanus/Diptheria (ADULT) 12/11/2004 TDAP (age 10 and older)(Boostrix) 02/04/2018 Varicella Zoster Vaccine (Adult) 07/18/2012 Zoster Vaccine Recombinant (Shingrix) 03/04/2020 ,08/08/2019 documented as of this encounter Social History Tobacco Use Types Packs/Day Years Used Date Smoking Tobacco: Former Cigarettes 1 35 0 04/01/1967 - 04/01/2002 Smokeless Tobacco: Never Comments:quit 15 yrs ago Alcohol Use Standard Drinks/Week Comments Yes 0 (1 standard drink = 0.6 oz pur e alcohol) 6 pack per week PHQ-2 Answer Date Recorded PHQ Adult Total Score 0 03/31/2023 Hunger Vital Sign Answer Date Recorded Within the past 12 months, y ou worried that your food would run out before you got the money to buy more. Never true 03/31/20 23 Within the past 12 months, t he food you bought just didn't last and you didn't have money to get more. Never true 03/31/2023 Sex and Gender Information Value Date Recorded Sex Assigned at Male 04/04/2019 10:41 AM EDT Gender Identity Male 04/04/2019 10:41 AM EDT Sexual Orientation Straight 04/04/2019 10 :41 AM EDT Job Start Date Occupation Industry Not on file Not on file Not on file documented as of this encounter Plan of Treatment Upcoming Encounters Date Type Department Care Team (Late st Contact Info) Description 02/16/2024 8:30 AM EDT Office Visit Vascular Surgery, [facility] [address] [facility] [place] [address] Nilo Russell MD [address] [place] [address] 04/20/2024 11:40 AM EDT Office Visit Sleep Disorders [facility] [address] [facility] [place] [phone] Irma Price, [address] [facility] [place] [address] 06/22/2024 8:10 AM EDT Office Visit [place] [address] [place] [phone] Soraya Dumont, [address] [place] [address] Health Maintenance Due Date Last Done Comments Alpha-1 Antitrypsin 1958 COVID-19 Vaccine ( season) 2023 06/05/2022, 09/29/2021, 02/03/2021, Additional history exists Albumin/Creatinine Ratio 03/31/2024 03/31/2023, 12/2018 CKD PHOS USE SMARTSET 72600 03/31/2024 03/31/2023, 0 11/03/2018 Depression Screening 03/31/2024 03/31/2023 GFR 07/17/2024 01/15/2024, 12/02, 11/26/2023, Additional history exists TSH 08/06/2024 08/06/2023, 11/2021, 02/19/2022, Additional history exists HbA1c 12/16/2024 12/16/2023, 04/2023, 07/02/2022, Additional history exists CKD HGB USE SMARTSET 32986 01/14/202501/14, 12/16/2023, 11/26/2023, Additional history exists O2 ASSESSMENT COMPLETED IN PAST YEAR FOR COPD 01/14/2025 01/15/2024 DTaP,Tdap,and Td Vaccines (2 - Td or Tdap) 02/05/2028 02/04/2018, 12/11/2004, 11/04/1999 Pneumococcal Vaccine: 65+ Years Completed 12/14/2016, 06/27/2009 Zoster Vaccines Completed 03/04/2020, 06/2019, 07/18/2012 Influenza Vaccine (FLU shot) Completed , 08/09/2021, 08/03/2020, Additional history exists GARDASIL-HPV IMMUNIZATION SERIES Aged Out No longer eligible based on patient's age to complete this topic Hepatitis B Aged Out No longer eligi ble based on patient's age to complete this topic MENINGOCOCCAL (MENACTRA/MENVEO) Aged Out No longer eligible based on patient's age to complete this topic documented as of this encounter Medical Devices Not on filedocumented as of this encounter Procedures Procedure Name Priority Date/Time Associated Diagnosis Comments RADIOLOGY EXAM - CT (IMAGES ONLY, NO REPORT) Routine 01/15/2024 7:40 AM EDT documented in this encounter Results * RADIOLOGY EXAM - CT (IMAGES ONLY, NO REPORT) (01/15/2024 7:40 AM EDT) 01/15/2024 7:37 AM EDT Narrative Scheduling, Silent - 01/15/2024 10:07 AM EDT This is an imaging study not interpreted or resulted by a [facility] or [facility] contracted radiologist. Nayeli Araujo MD RAD CT documented in this encounter Advance Directives Latest Code Status on File Code Status Date Activated Date Inactivated Comments Full Code 01/15/2024 12:03 PM 01/15/2024 6:51 PM This order reflects the patients wishes and were consensually agreed upon. Question Answer Comments Discussion of Advance Directives occurred with: Patient Care Teams Paediatric Thoracic Physician Relationship Specialty Start Date End Date Soraya Dumont DO [address] [facility] [place] [id number] PCP - General Family Medicine 04/28/12 documented as of this encounter
--- OUTSIDE RECORDS SUMMARY | 2024-01-17 07:02 | External Medical Summary | Summary of Care ---
Author Name Unknown Organization [facility] Address [address] [place] [address] Phone [phone] Care Team Providers Care Writer Technical Publications Name Role Phone Soraya Dumont DO Primary Care Provider [phone] Reason for Referral * Evaluate & Treat - Unlimited Visits (Within 10 days (routine)) - Authorized Specialty Diagnoses / Procedures Referred By Contaugust phillips Referred To Contact Pain Management / Pain Medicine Luann Valerio MD [address] [place] [address] Referral ID Status Reason Start Date Expiration Date Visits Requested Visits Authorized [id number] Authorized Specialty Services Required 01/15/2024 999 999 Question Answer Referral Priority Within 10 days (routine) Where should this appointment be scheduled? [facility] Reason for referral? Non Interventional Pain Management What is the preferred location to have this test performed? [facility] Comments Patient Name: Colt Valles Date of : 1940 Department Phone Number: MRI or CT (if unable to have a MRI) is recommended if any of the following apply: 1. Patient has neck or back pain with radiation to extremities. A previous MRI will be accepted if symptoms unchanged since prior MRI. 2. Spinal surgery since last MRI. If yes, order a MRI with and without contrast. 3. Hx or ongoing cancer treatment. Patient will need spine x-ray (Ap/Lat) for axial neck or back pain if not done previously. Fax No. [facility] [phone] or contact front desk receptionist [phone] Fax No. [facility] [phone] or contact front desk receptionist [phone] Fax No. [facility] [phone] or contact front desk receptionist [phone] Discharge Order Reason for Visit * Reason Comments Back Pain Known AAA from [facility] * Auth/Cert Specialty Diagnoses / Procedures Referred By Contac t Referred To Contact Diagnoses abd pain, back pain known AAA [facility] [address] [place] [address] Phone: [phone] Emergency Medicine [facility] [address] [place] [address] Referral ID Status Reason Start Date Expiration Date Visits Re quested Visits Authorized [id number] Encounter Details Date Type Department Care Team (Late st Contact Info) Description 01/15/2024 11:40 AM EDT - 01/15/2024 2:46 PM EDT Emergency [facility] Emergency Department ([facility]) [address] [place] [address] Sean Hernandez MD [address] [place] [address] Lumbar degenerative disc disease (Primary Dx) Discharge Disposition: Home - Self Care Allergies [...] eye every morning. 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 06/30/20 Overview: DUPLICATE Hypertensive heart and kidne y [...] on file documented as of this encounter Last Filed Vital Signs Vital Sign Reading Time Taken Comments Blood Pressure 117/79 01/15/2024 2:00 PM EDT Pulse 75 01/15/2024 2:00 PM EDT Temperature 36.5 C (97.7 F) 01/15/2024 2:00 PM ED T Respiratory Rate 17 01/15/2024 2:00 PM EDT Oxygen Saturation 96% 01/15/2024 2:00 PM EDT Inhaled Oxygen Concentration - - Weight - - Height - - Body Mass Index - - documented in this encounter Discharge Instructions * Discharge Instructions* Luann Valerio MD - 01/15/2024 2:22 PM EDT You have been seen and evaluated in the Emergency Department of [facility], in [place], [place]. Please read the discharge instructions below regarding your care. Summary Of Today's Visit: You were seen today for back pain and leg pain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 We had our vascular surgery team take a look and there is no indication currently for intervention. We gave you some pain medication which helped with your pain and you were able to move around. We will send you home with lidocaine patches to help with the pain and you'll need to follow-up with vascular surgery, pain management, and your PCP as out-patient. We put in requests for appointments. New Prescriptions/Medication Changes: Discharge Medications Disp Refills Start End Lidocaine 4 % External Patch (Aspercreme) 30 Patch 0 01/15/2024 -- Sig - Route: Place 1 Patch over 12 hours topically on the skin daily. - Transdermal Class: ePrescribing Renewals Renewal requests to authorizing provider (Luann Valerio MD) <b>prohibited</b> Follow Up/Continuation Of Care: Return to the Emergency Department or seek medical attention if you feel worse. Follow-up appointments were requested with your PCP, vascular surgery, and pain management. If you change your mind about physical therapy you can let your PCP know to put in a referral. The above instructions were reviewed with the patient/family/parents/POA/soaker meat. Thank you for allowing us to care for you. Our goal is to provide you the best care. If you have any emergency needs in the future we will be glad to help you again. We are here to serve you! documented in this encounter ED Notes * Sean Hernandez MD - 01/15/2024 11:40 AM EDT HISTORY OF PRESENT ILLNESS Colt Valles is a 83 year old male who presents to the ED for evaluation of Back Pain (Known AAA from [facility]). The patient was seen at 01/15/24 1140. Patient has PMHx of known AAA, sinus node dysfunction s/p PPM, HTN, DLD, and COPD. He presented to [facility] initially with new onset lower back pain and urinary complaints. Per intake note, aneurysm measuring 5.2 x 4.6 cm and has increased in sizesince previous imaging 2 days ago with noted abdominal tenderness. Patient was transferred [place] [facility] [place] further evaluation by vascular surgery. Patient notes his back pain started 2-3 days ago particularly in his lower right back and was radiating down his legs. He had associated increased urinary urg ency with inability to void. He denies any decreased perineal sensation. He notes some abdominal pain as well. He denies any chest pain, palpitations, nausea, vomiting, fevers, chills, rigors, hematuria, melena, or hematochezia. He notes chronic shortness of breath but does not use oxygen at home. He wishes to be full code at this time. The patient's allergies, past history, and medications were reviewed. PHYSICAL EXAM Initial Vitals (see all): BP 157/69 | Pulse 74 | Resp 18 | Temp 97.7 | O2 90 %, Room Air, None | Weight 83.37 kg | Height 167.6 cm | BMI 29.67 kg/m2 Initial Pain Assessment (see all): 2 (mild pain)/10, Unable to verbalize, location: b\\l legs and back ([facility] Adult Scale 0-10) Physical Exam Constitutional: General: He is not in acute distress. HENT: Head: Normocephalic and atraumatic. Ears: Comments: Hard of hearing Cardiovascular: Rate and Rhythm: Normal rate and regular rhythm. Pulmonary: Effort: Pulmonary effort is normal. Breath sounds: Normal breath sounds. Abdominal: General: There is distension. Tenderness: There is abdominal tenderness. Musculoskeletal: Right lower leg: No edema. Left lower leg: No edema. Skin: General: Skin is warm and dry. Neurological: General: No focal deficit present. Mental Status: He is oriented to person, place, and time. Motor: No weakness. Comments: Strength 5/5 in BL UE and BL LE Pain with straight leg elevation bilaterally after about 45 degrees Psychiatric: Mood and Affect: Mood normal. Behavior: Behavior normal. PROCEDURES AND TREATMENTS ED Orders | ED Results MEDICAL DECISION MAKING Nursing notes and vital signs were reviewed. ED consults were placed. Differential Diagnoses Based on my history, physical exam, and evaluation, the differential includes, but is not limited, to the following diagnoses: AAA, degenerative joint disease, sciatica, urinary retention and concernhis back pain was related to the AAA. ED COURSE AND MEDICAL DECISION MAKING Following taking a history and physical (please see above HPI & physical exam findings), the following differential diagnosis' were considered as listed above. At this point of the patients medical evaluation, degenerative lumbar disc disease was more likely given imaging and exam findings while AAA causing the symptoms was less likely given imaging findings per vascular surgery. Labs pertinent for Hgb 8.5, troponin T elevated but flat 27 > 27. Vascular surgery was consulted with no indication for acute intervention. While in the ED the patient was managed with 0.5 mg IV dilaudid with appropriate pain relief and he was able to ambulate. Based on the patient's ED course and considering the differential and lab, imaging, and exam findings, the plan to discharge was discussed with the patient / patient's family. Return appointments requested with pain management, vascular surgery, and PCP. He is not interested in physical therapy referral. The patient was then discharged, advised to follow up with their PCP and return to the ED with the following precautions chest pain, shortness of breath, high fevers, syncope. Amount and/or Complexity of Data Reviewed External Data Reviewed: radiology and notes. Details: I personally reviewed the notes from the [facility] ED visit earlier today and last night. I reviewed the doctors notes and their concerns. I also personally reviewed the CT imaging study that was performed at [facility], which showed the AAA but did not show any other acute findings. Labs: ordered. ECG/medicine tests: ordered and independent interpretation performed. Details: My interpretation of the EKG revealed no ST elevations Discussion of management or test interpretation with external provider(s): We discussed management with vascular surgery. We discussed the concern that his back pain might be secondary to his large AAA. The result of our discussion with vascular surgery was a decision to have him follow up with them as an outpatient. Risk OTC drugs. Prescription drug management. Parenteral controlled substances. Clinical Impressions Lumbar degenerative disc disease Disposition Discharged. The patient's condition at disposition was: stable. Discharge Medications Disp Refills Start End Lidocaine 4 % External Patch (Aspercreme) 30 Patch 0 01/15/2024 -- Sig - Route: Place 1 Patch over 12 hours topically on the skin daily. - Transdermal Class: ePrescribing Renewals Renewal requests to authorizing provider (Luann Valerio MD) <b>prohibited</b> Sean Hernandez was the attending physician who supervised the care of this patient. Luann Valerio MD ATTENDING ATTESTATION I have seen and examined this patient on the 01/15/2024 visit. I have discussed the patient's management with the provider listed above and agree with the note, findings, and plan of care. * Krissy Garrido RN - 01/15/2024 11:40 AM EDT Patient is coming as a transfer from [facility] where they have been watching a known AAA and it has since gotten larger since 01/12 4.7 now 5.5. Went to the ED for back pain and b/lleg pain. He was also having some urinary retention. Was given dilaudid around 0730 [facility] documented in this encounter Plan of Treatment Upcoming Encounters Date Type Department Care Team (Late st Contact Info) Description 02/16/2024 8:30 AM EDT Office Visit Vascular Surgery, [facility] [address] [place] [address] Nilo Russell MD [address] [place] [address] 04/20/2024 11:40 AM EDT Office Visit Sleep Disorders [facility] [address] [facility] [place] [phone] Irma Price [address] [facility] [address] 06/22/2024 8:10 AM EDT Office Visit [address] [phone] Soraya Dumont, [address] [place] [address] Scheduled Orders Name Type Priority Associated Diagnoses Orde r Schedule EKG EKG STAT One Time for 1 Occurrences starting 01/15/2024 until 01/15/2024 Scheduled Referrals Name Type Priority Associated Diagnoses Orde r Schedule PAIN MEDICINE REFERRAL OP Referral Within 10 days (routine) Lumbar degenerative disc disease Ordered: 01/15/2024 Health Maintenance Due Date Last Done Comments Alpha-1 Antitrypsin 1958 COVID-19 Vaccine ( season) 2023 06/05/2022, 09/29/2021, 02/03/2021, Additional history exists Albumin/Creatinine Ratio 03/31/2024 03/31/2023, 12/2018 CKD PHOS USE SMARTSET 49964 03/31/2024 03/31/2023, 0 11/03/2018 Depression Screening 03/31/2024 03/31/2023 GFR 07/17/2024 01/15/2024, 12/02, 11/26/2023, Additional history exists TSH 08/06/2024 08/06/2023, 11/2021, 02/19/2022, Additional history exists HbA1c 12/16/2024 12/16/2023, 04/2023, 07/02/2022, Additional history exists CKD HGB USE SMARTSET 95867 01/14/202501/14, 12/16/2023, 11/26/2023, Additional history exists O2 [...] Procedure Name Priority Date/Time Associated Diagnosis Comments TROPONIN T, HIGH SENSITIVITY STAT 01/15/2024 12:53 PM EDT TROPONIN T, HIGH SENSITIVITY STAT 01/15/2024 12:15 PM EDT COMPREHENSIVE METABOLIC PANEL STAT 01/15/2024 12:15 PM EDT ABO/RH STAT 01/15/2024 12:15 PM EDT TYPE AND SCREEN STAT 01/15/2024 12:15 PM EDT LACTATE STAT 01/15/2024 12:15 PM EDT CBC STAT 01/15/2024 12:15 PM EDT documented in this encounter Results * (ABNORMAL) TROPONIN T, HIGH SENSITIVITY (01/15/2024 12:53 PM EDT) [facility] Troponin T, High Sensitivity 27(H) <=22 ng/L 01/15/2024 1:16 PM EDT LABORATORY [facility] Blood Venous blood specimen / Unknown Venipuncture / Unknown 01/15/2024 12:53 PM EDT 01/15/2024 12:58 PM EDT Luann Valerio MD LAB BLOOD OR DERABLES LAB[facility] [address] [place] [address] * ABO/RH (01/15/2024 12:15 PM EDT) [facility] ABO O 01/15/2024 2:04 PM EDT LAB[facility] Rh Positive 01/15/2024 2:04 PM EDT LAB[facility] Blood Venous blood specimen / Unknown Venipuncture / Unknown 01/15/2024 12:15 PM EDT 01/15/2024 12:19 PM EDT Luann Valerio MD LAB BLOOD BA NK TEST ORDERABLES LAB[facility] [address] [place] [address] * LACTATE (01/15/2024 12:15 PM EDT) [facility] Lactate 1.1 0.4 - 2.0 mmol/L 01/15/2024 12:42 PM EDT LABORATORY C Blood Venous blood specimen / Unknown Venipuncture / Unknown 01/15/2024 12:15 PM EDT 01/15/2024 12:19 PM EDT Luann Valerio MD LAB BLOOD OR DERABLES Performing Organization Address [facility] Co de Phone Number LABORATORY [address] [address] * (ABNORMAL) TROPONIN T, HIGH SENSITIVITY (01/15/2024 12:15 PM EDT) Pathologist [facility] Troponin T, High Sensitivity 27(H) <=22 ng/L 01/15/2024 12:44 PM EDT LAB[facility] Blood Venous blood specimen / Unknown Venipuncture / Unknown 01/15/2024 12:15 PM EDT 01/15/2024 12:19 PM EDT Luann Valerio MD LAB BLOOD OR DERABLES Performing Organization Address [facility] de Phone Number LABORATORY [address] [address] * TYPE AND SCREEN (01/15/2024 12:15 PM EDT) Pathologist [facility] ABO O 01/15/2024 1:07 PM EDT LABORATORY [facility] Rh Positive 01/15/2024 1:07 PM EDT LAB[facility]ATORY [facility] Red Blood Cell Antibody Screen Negative 01/15/2024 1:07 PM EDT LAB[facility]ATORY [facility] Specimen Expiration Date 01/18/2024 23:59 01/15/2024 1:07 PM EDT LABORATORY [facility] Blood Venous blood specimen / Unknown Venipuncture / Unknown 01/15/2024 12:15 PM EDT 01/15/2024 12:19 PM EDT Luann Valerio MD LAB BLOOD BA NK TEST ORDERABLES LAB[facility]ATORY [facility] [address] [place] [address] * (ABNORMAL) COMPREHENSIVE METABOLIC PANEL (01/15/2024 12:15 PM EDT) BUN 13 6 - 20 mg/dL 01/15/2024 12:44 PM EDT LAB[facility] Creatinine 1.5(H) 0.6 - 1.2 mg/dL 01/15/2024 12:44 PM EDT LAB[facility] Estimated Glomerular Filtration Rate 47(L) >=60 mL/min 01/15/2024 12:44 PM EDT LABORATORY C Comment:eGFR is calculated b ased on the CKD-EPI 2020 equation Sodium 131(L) 135 - 146 mmol/L 01/15/2024 12:44 PM EDT LABORATORY C Potassium 4.6 3.5 - 5.1 mmol/L 01/15/2024 12:44 PM EDT LABORATORY C Chloride 99 98 - 107 mmol/L 01/15/2024 12:44 PM EDT LABORATORY C CO2 20(L) 22 - 32 mmol/L 01/15/2024 12:44 PM EDT LABORATORY C Anion Gap 12 7 - 15 mmol/L 01/15/2024 12:44 PM EDT LABORATORY C Glucose 130(H) 70 - 120 mg/dL 01/15/2024 12:44 PM EDT LAB[facility]ORY [facility] Albumin 4.2 3.8 - 5.0 g/dL 01/15/2024 12:44 PM EDT LABORATORY C AST 19 10 - 50 U/L 01/15/2024 12:44 PM EDT LAB[facility]ORY [facility] Alkaline Phosphatase 54 35 - 130 U/L 01/15/2024 12:44 PM EDT LAB[facility]ORY [facility] Bilirubin, Total 0.4 <=1.2 mg/dL 01/15/2024 12:44 PM EDT LAB[facility] Calcium 9.1 8.4 - 10.2 mg/dL 01/15/2024 12:44 PM EDT LAB[facility]ORY [facility] Protein 6.7 6.0 - 8.3 g/dL 01/15/2024 12:44 PM EDT LABORATORY C ALT 14 10 - 50 U/L 01/15/2024 12:44 PM EDT LAB[facility]ORY [facility] Blood Venous blood specimen / Unknown Venipuncture / Unknown 01/15/2024 12:15 PM EDT 01/15/2024 12:19 PM EDT Luann Valerio MD LAB BLOOD OR DERABLES [facility] [address] [place] [address] * (ABNORMAL) CBC (01/15/2024 12:15 PM EDT) WBC 6.67 4.00 - 10.80 K/uL 01/15/2024 12:27 PM EDT LAB[facility]ORY [facility] RBC 3.24 4.50 - 5.25 M/uL 01/15/2024 12:27 PM EDT LAB[facility]ORY [facility] HGB 8.5(L) 14.0 - 16.8 g/dL 01/15/2024 12:27 PM EDT LAB[facility]ORY [facility] HCT 27.5(L) 40.0 - 48.4 % 01/15/2024 12:27 PM EDT LAB[facility] MCV 84.9 82.0 - 99.5 fL 01/15/2024 12:27 PM EDT LAB[facility] MCH 26.2 27.0 - 34.0 pg 01/15/2024 12:27 PM EDT [facility] MCHC 30.9 32.0 - 36.0 g/dL 01/15/2024 12:27 PM EDT LAB[facility] RDW 14.9 11.5 - 15.5 % 01/15/2024 12:27 PM EDT LAB[facility] PLT 279 140 - 400 K/uL 01/15/2024 12:27 PM EDT LAB[facility] MPV 9.4 6.6 - 11.1 fL 01/15/2024 12:27 PM EDT [facility] nRBCs 0 <=0 /100 WBCs 01/15/2024 12:27 PM EDT [facility] Blood Venous blood specimen / Unknown Venipuncture / Unknown 01/15/2024 12:15 PM EDT 01/15/2024 12:19 PM EDT Luann Valerio MD LAB BLOOD OR DERABLES [facility] [address] [facility] [address] documented in this encounter Visit Diagnoses Diagnosis Lumbar degenerative disc disease- Primary Degeneration of lumbar or lumbosacral intervertebral disc documented in this encounter Administered Medications Inactive Administered Medications - up to 3 most recent administrations Medication Order MAR Action Action Date Dose Rate Site HYDROmorphone (Dilaudid) inj 0.5 mg 0.5 mg, Intravenous, ONCE, On 01/15/24 at 1300, For 1 dose Given 01/15/2024 12:49 PM EDT 0.5 mg documented in this encounter Active and Recently Administered Medications Times are shown in EDT. Scheduled Medication Order 01/13/2024 01/14/2024 01/15/2024 HYDROmorphone (Dilaudid) inj 0.5 mg (COMPLETED) 0.5 mg, Intravenous, ONCE, On 01/15/24 at 1300, For 1 dose 1249 (Given - Provid er: Lisa Wadsworth RN) documented in this encounter Advance Directives Latest Code Status on File Code Status Date Activated Date Inactivated Comments Full Code 01/15/2024 12:03 PM 01/15/2024 6:51 PM This order reflects the patients wishes and were consensually agreed upon. Question Answer Comments Discussion of Advance Directives occurred with: Patient Care Teams Writer Technical Publications Relationship Specialty Start Date End Date Soraya Dumont DO [address] [facility] [address] PCP - General Family Medicine 04/28/12 documented as of this encounter"
--- OUTSIDE RECORDS SUMMARY | 2024-01-17 07:03 | External Medical Summary ---
Author Name Unknown Address Unknown Organization [id number]:LABORATORY [facility] - [address] [place] [address] Laboratory Report Ordering Provider Test Date Status ZAHEER SAULH 01/15/2024 12:15:00 Final Observation Date Value Abnormality Reference (Units ) Status ABO 01/15/2024 12:15:00 O Final RH 01/15/2024 12:15:00 Positive Final RED BLOOD CELL ANTIBODY SCREEN 01/15/2024 12:15:00 Negative Final SPECIMEN EXPIRATION DATE 01/15/2024 12:15:00 01/18/2024 23:59 Final Performing Location LABORATORY [facility] - [address] [place] [address]
--- OUTSIDE RECORDS SUMMARY | 2024-01-17 07:03 | External Medical Summary ---
Author Name Unknown Address Unknown Organization [id number]:LABORATORY [facility] - [facility] [address] [facility] [address] [facility] [address] Laboratory Report Ordering Provider Test Date Status ALICIA SAUL 01/15/2024 12:15:00 Final Observation Date Value Abnormality Reference (Units ) Status WBC, Total 01/15/2024 12:15:00 6.67 4.00-10.80 (K/uL) Final RBC 01/15/2024 12:15:00 3.24 4.50-5.25 (M/uL) Final Hemoglobin 01/15/2024 12:15:00 8.5 Below low normal 14.0-16.8 (g/dL) Final HCT 01/15/2024 12:15:00 27.5 Below low normal 40.0-48.4 (%) Final MCV 01/15/2024 12:15:00 84.9 82.0-99.5 (fL) Final MCH 01/15/2024 12:15:00 26.2 27.0-34.0 (pg) Final MCHC 01/15/2024 12:15:00 30.9 32.0-36.0 (g/dL) Final RDW 01/15/2024 12:15:00 14.9 11.5-15.5 (%) Final Platelets 01/15/2024 12:15:00 279 140-400 (K/uL) Final MPV 01/15/2024 12:15:00 9.4 6.6-11.1 (fL) Final Nucleated erythrocytes/100 leukocytes [Ratio] in Blood by Automated count 01/15/2024 12:15:00 0 <=0 (/100 WBCs) Final Performing Location LABORATORY [facility] - [address] [place] [address]
--- OUTSIDE RECORDS SUMMARY | 2024-01-17 07:03 | External Medical Summary ---
Author Name Unknown Address Unknown Organization [id number]:[facility] [place] [address] [facility] [address] Laboratory Report Ordering Provider Test Date Status ALICIA SAUL 01/15/2024 12:15:00 Final Observation Date Value Abnormality Reference (Units ) Status BUN 01/15/2024 12:15:00 13 6-20 (mg/dL) Final Creatinine 01/15/2024 12:15:00 1.5 Above high normal 0.6-1.2 (mg/dL) Final Glomerular filtration rate/1.73 sq M.predicted [Volume Rate/Area] in Serum, Plasma or Blood by Creatinine-based formula (CKD-EPI) 01/15/2024 12:15:00 47 Below low normal >=60 (mL/min) Final eGFR is calculated based on the CKD-EPI 2020 equation SODIUM 01/15/2024 12:15:00 131 Below low normal 135 -146 (mmol/L) Final Potassium 01/15/2024 12:15:00 4.6 3.5-5.1 (m mol/L) Final Cl 01/15/2024 12:15:00 99 98-107 (mm ol/L) Final CO2 01/15/2024 12:15:00 20 Below low normal 22- 32 (mmol/L) Final Anion gap 01/15/2024 12:15:00 12 7-15 (mmol /L) Final Glucose 01/15/2024 12:15:00 130 Above high normal 70 -120 (mg/dL) Final Albumin 01/15/2024 12:15:00 4.2 3.8-5.0 (g /dL) Final AST (Aspartate aminotransferase) 01/15/2024 12:15:00 19 10-50 (U/L) Fin al Alk Phos 01/15/2024 12:15:00 54 35-130 (U/ L) Final Bilirubin, Total 01/15/2024 12:15:00 0.4 <=1 .2 (mg/dL) Final Calcium 01/15/2024 12:15:00 9.1 8.4-10.2 ( mg/dL) Final Protein 01/15/2024 12:15:00 6.7 6.0-8.3 (g /dL) Final ALT (Alanine aminotransferase) 01/15/2024 12:15:00 14 10-50 (U/L) Ananda ihnds Performing Location LAB[facility]ORY [facility] [place] [address] [facility] [address]
--- OUTSIDE RECORDS SUMMARY | 2024-01-17 07:03 | External Medical Summary ---
Author Name Unknown Address Unknown Organization K01:LABORATORY [facility] - [address] [place] [address] Laboratory Report Ordering Provider Test Date Status DAVID SAULDEH 01/15/2024 12:15:00 Final Observation Date Value Abnormality Reference (Units ) Status Troponin T 01/15/2024 12:15:00 27 Above high normal < =22 (ng/L) Final Performing Location LABORATORY [facility] - [address] [place] [address]
--- OUTSIDE RECORDS SUMMARY | 2024-01-17 07:03 | External Medical Summary ---
Author Name Unknown Address Unknown Organization [id number]:LABORATORY [facility] [place] - [address] [place] [address] Laboratory Report Ordering Provider Test Date Status KGALICIA 01/15/2024 12:15:00 Final Observation Date Value Abnormality Reference (Units ) Status Lactic Acid 01/15/2024 12:15:00 1.1 0.4-2.0 (mmol/L) Final Performing Location LABORATORY [facility] [place] - [address] [facility] [address]
--- OUTSIDE RECORDS SUMMARY | 2024-01-17 07:03 | External Medical Summary ---
Author Name Unknown Address Unknown Organization [id number][place] [facility] [place] [address] [place] [address] Laboratory Report Ordering Provider Test Date Status ZAHEER SAULH 01/15/2024 12:53:00 Final Observation Date Value Abnormality Reference (Units ) Status Troponin T 01/15/2024 12:53:00 27 Above high normal < =22 (ng/L) Final Performing Location [facility] [facility] [place] [address] [place] [address]
--- OUTSIDE RECORDS SUMMARY | 2024-01-17 07:03 | External Medical Summary | Summary of Care ---
Author Name Unknown Organization [facility] Address [address] [place] [address] Phone [phone] Care Team Providers Care Electrical Maintenance Engineer Name Role Phone Soraya Dumont Rae BURRELL Primary Care Provider [phone] Encounter Details Date Type Department Care Team (Late st Contact Info) Description 01/15/2024 Orders Only Unspecified Department Nayeli Araujo MD [address] [place] [address] Allergies Active Allergy Reactions Criticality Noted Date Comments Amoxicillin 09/06/1998 hives and swelling Clindamycin Edema airway,Edema face/lips/tongue High 04/26/2017 Sulfa Antibiotics Hives 08/09/2012 documented as of this encounter (statuses as of 01/15/2024) Medications Medication Sig Dispensed Refills Start Date [...] eye every morning. 0 01/20/2022 Active Tiotropium [place] Monohydrate 18 MCG Inhalation Capsule (Spiriva) Inhale [...] MOUTH EVERY DAY 100 Capsule 3 12/06/2023 Active Atorvastatin Calcium 20 MG Oral Tablet [...] EYE AT BEDTIME 10 mL 3 12/31/2023 03/01/202 5 Active Montelukast Sodium 10 MG Oral Tablet (Singulair)Indicatio ns:COPD, mild (HCC) TAKE ONE TABLET BY MOUTH EVERY DAY BEFORE BEDTIME 90 Tablet 3 12/29/2023 5 Active documented as of this encounter (statuses as of 01/15/2024) Active Problems Problem Noted Date Diagnosed Date [...] as of this encounter (statuses as of 01/15/2024) Resolved Problems Problem Noted Date Diagnosed Date [...] as of this encounter (statuses as of 01/15/2024) Immunizations Name Administration Dates Next Due COVID-19 [...] 8:30 AM EDT Office Visit Vascular Surgery, [facility] [address] [facility] [place] [address] Nilo Russell MD [address] [facility] [place] [address] 04/20/2024 11:40 AM EDT Office Visit [facility] [address] [facility] [place] [phone] Irma Price DO [address] [facility] [place] [address] 06/22/2024 8:10 AM EDT Office Visit [facility] [address] [place] [phone] Soraya Dumont, [address] [place] [address] Health Maintenance Due Date Last Done Comments Alpha-1 Antitrypsin 1958 COVID-19 Vaccine ( season) 2023 06/05/2022, 09/29/2021, 02/03/2021, Additional history exists Albumin/Creatinine Ratio 03/31/2024 03/31/2023, 12/2018 CKD PHOS USE SMARTSET 08909 03/31/2024 03/31/2023, 0 11/03/2018 Depression Screening 03/31/2024 03/31/2023 GFR 06/15/2024 12/16/2023, 11/02, 08/06/2023, Additional history exists TSH 08/06/2024 08/06/2023, 11/2021, 02/19/2022, Additional history exists CKD HGB USE SMARTSET 80979 12/16/202412/16, 11/26/2023, 09/27/2023, Additional history exists HbA1c 12/16/2024 12/16/2023, 04/2023, 07/02/2022, Additional history exists O2 ASSESSMENT COMPLETED IN PAST YEAR FOR COPD 12/16/2024 12/16/2023 DTaP,Tdap,and Td Vaccines (2 - Td or [...] interpreted or resulted by a [facility] or [facility] contracted radiologist. Nayeli Araujo MD RAD CT documented in this encounter Care Teams Electrical Maintenance Engineer Relationship Specialty Start Date End Date Soraya Dumont DO [address] [place], [place] [phone] PCP - General Family Medicine 04/28/12 documented as of this encounter
--- OUTSIDE RECORDS SUMMARY | 2024-01-17 07:03 | External Medical Summary | Summary of Care ---
Author Name Unknown Organization [facility] Address [address] [place] [address] Phone [phone] Care Team Providers Care Evaluation Specialist Name Role Phone Soraya Dumont Primary Care Provider Encounter Details Date Type Department Care Team (Late st Contact Info) Description 01/15/2024 Telephone Vascular Surg [facility] [address] [place], [place] [phone] Alistair Harris MD [address] [place], [place] [phone] Allergies Active Allergy Reactions Criticality Noted Date [...] eye every morning. 0 01/20/2022 Active Tiotropium [place] Monohydrate 18 MCG Inhalation Capsule (Spiriva) Inhale [...] on file documented as of this encounter Miscellaneous Notes * Telephone Encounter - Alistair Harris MD - 01/15/2024 9:13 AM EDT Vascular Returning Officer Transfer Center Note: Called by [facility] for patient with known AAA. No imaging available to review in [facility] at time of call. No vascular surgery coverage at [facility] to evaluate patient. Sounds like he has back / flank pain and inability to urinate. CT scan performed there loosely correlates with recent aortic duplex for known AAA. Low likelihood of acute aortic syndrome but due to lack of ability to have patient evaluated by vascular surgeon or ability to see imaging recommend transfer to our ER for vascular surgery evaluation as part of his workup. Alistair Harris MD Section of Vascular [place] [address] [phone] documented in this encounter Plan of Treatment Upcoming Encounters Date Type Department Care Team (Late st Contact Info) Description 02/16/2024 8:30 AM EDT [facility] [place] [address] Nilo Russell MD [address] [place] [address] 04/20/2024 11:40 AM EDT Office Visit [facility] Ctr [facility] [address] [facility] [place] [phone] Irma Price DO [address] [place] [address] 06/22/2024 8:10 AM EDT [address] [phone] Soraya Dumont, DO [address] [place] [address] Health Maintenance Due Date Last Done Comments Alpha-1 Antitrypsin 1958 COVID-19 Vaccine (2022-24 season) 2023 06/05/2022, 09/29/2021, 02/03/2021, Additional history exists Albumin/Creatinine Ratio 03/31/2024 03/31/2023, 12/2018 CKD PHOS USE SMARTSET 19008 03/31/2024 03/31/2023, 0 11/03/2018 Depression Screening 03/31/2024 03/31/2023 GFR 06/15/2024 12/16/2023, 11/02, 08/06/2023, Additional history exists TSH 08/06/2024 08/06/2023, 11/2021, 02/19/2022, Additional history exists CKD HGB USE SMARTSET 74366 12/16/202412/16, 11/26/2023, 09/27/2023, Additional history exists HbA1c [...] Not on filedocumented as of this encounter Care Teams Evaluation Specialist Relationship Specialty Start Date End Date Soraya Dumont DO [address] [place] [phone] PCP - General Family Medicine 04/28/12 documented as of this encounter
--- NOTE | 2024-01-17 07:29 | Emergency Department Note ---
History of Present Illness General Chief complaint: Back Injury/Pain Stated complaint: SEVERE BACK PAIN,RADIATING DOWN LEG Time Seen by Provider: 01/17/24 07:13 History of Present Illness Maximum Pain Intensity: 10 83-year-old male with past medical history significant for abdominal aortic aneurysm, sick sinus syndrome status post pacemaker, COPD, hypertension who presents to the emergency department accompanied by for evaluation of low back pain. Patient was evaluated in this ED on 01/14 for similar symptoms. He had an full workup including CT of the abdomen/pelvis and lumbar spine. CTs demonstrated degenerative changes of the lumbar spine but also notable enlargement of his AAA. Patient was ultimately transferred to [facility] for vascular surgery evaluation regarding his AAA. Per and patient, they are not recommending intervention at this time and suspect his symptoms are secondary to his spine versus AAA. He was discharged home with follow-up with vascular surgery as well as pain management. Patient returns today as he cannot get his back pain under control. He notes acute symptoms since Wednesday. He denies any falls or trauma. He notes pain in the right low back and hip that radiates into his leg. Notes associated numbness/tingling and weakness. He denies any loss of control of his bowel or bladder movements. He is ambulating but this increases his discomfort. Denies any fevers or chills, nausea/vomiting, chest pain, shortness of breath, abdominal pain, diarrhea/constipation, urinary symptoms. No hematuria, hematochezia, or melena. He took his home tramadol and Percocet without any relief in his symptoms. Denies previous surgeries to his spine. He does not follow with a spine surgeon. Reports allergies to multiple antibiotics. Home Medications Medication Instructions Recorded Confirmed Type amlodipine 5 mg tablet 5 mg PO DAILY 06/09/19 01/17/24 History ascorbic acid (vitamin C) 1,000 mg 1 gm PO DAILY 06/09/19 01/17/24 History tablet aspirin 81 mg tablet,delayed 81 mg PO DAILY 06/09/19 01/17/24 History release (Adult Low Dose Aspirin) atorvastatin 20 mg tablet (Lipitor) 20 mg PO DAILY 06/09/19 01/17/24 History cod liver oil 1 cap PO DAILY 06/09/19 01/17/24 History latanoprost 0.005 % eye drops 1 drops OPB QPM 06/09/19 01/17/24 History lisinopril 30 mg tablet 30 mg PO DAILY 06/09/19 01/17/24 History omeprazole 40 mg capsule,delayed 40 mg PO DAILY 06/09/19 01/17/24 History release tramadol 50 mg tablet 50 mg PO Q6H PRN Pain 06/09/19 01/17/24 History calcium carbonate 500 mg calcium 500 mg PO DAILY 02/13/22 01/17/24 History (1,250 mg) chewable tablet (Calcium 500) levothyroxine 100 mcg tablet 100 mcg PO DAILYBB 02/13/22 01/17/24 History timolol maleate 0.5 % eye drops 1 drp OPR QAM 02/13/22 01/17/24 History cholecalciferol (vitamin D3) 50 50 mcg PO DAILY 02/25/22 01/17/24 History mcg (2,000 unit) capsule diclofenac sodium 1 % topical gel 4 g topical QID PRN Other 02/25/22 01/17/24 History fluticasone propionate 50 2 spray intranasal DAILY 02/25/22 01/17/24 History mcg/actuation nasal spray,suspension hydrocodone 5 mg-acetaminophen 325 1 tab PO Q6H PRN Pain 02/25/22 01/17/24 History mg tablet imiquimod 5 % topical cream packet 1 applic topical TID PRN Other 02/25/22 01/17/24 History triamcinolone acetonide 0.1 % 1 applic topical TID PRN Other 02/25/22 01/17/24 History topical cream Incentive Spirometer #1 ea 07/28/22 05/20/23 Rx gabapentin 800 mg tablet 800 mg PO HS 05/20/23 01/17/24 History albuterol sulfate 90 mcg/actuation 2 puff inhalation Q6H PRN 05/28/23 01/17/24 Rx aerosol inhaler (Ventolin HFA) shortness of breath or wheezing #3 Inhalers budesonide 0.25 mg/2 mL suspension 0.25 mg (2 mL) inhalation BID #180 05/28/23 01/17/24 Rx for nebulization mL guaifenesin 600 mg tablet, 600 mg PO BID PRN congestion #180 05/28/23 01/17/24 Rx extended release 12 hr (Mucinex) tabs montelukast 10 mg tablet 10 mg PO DAILY #90 tabs 05/28/23 01/17/24 Rx tiotropium 2.5 mcg-olodaterol 2.5 2 puff inhalation DAILY #3 Inhalers 05/28/23 01/17/24 Rx mcg/actuation mist for inhalation (Stiolto Respimat) apixaban 5 mg tablet (Eliquis) 5 mg PO BID 01/17/24 01/17/24 History finasteride 5 mg tablet 5 mg PO DAILY 01/17/24 01/17/24 History ipratropium 0.5 mg-albuterol 3 mg 3 ml inhalation UD 01/17/24 01/17/24 History (2.5 mg base)/3 mL nebulization soln tamsulosin 0.4 mg capsule 0.4 mg PO DAILY 01/17/24 01/17/24 History Allergies Allergy/AdvReac Type Severity Reaction Status Date / Time amoxicillin Allergy Severe HIVES Verified 05/20/23 11:18 Sulfa (Sulfonamide Allergy Severe HIVES Verified 05/20/23 11:18 Antibiotics) Penicillins Allergy Intermediate HIVES Verified 05/20/23 11:18 levofloxacin [From Levaquin] AdvReac Intermediate swelling Verified 05/20/23 11:18 of neck and should area Past Med/Surg History Medical History (Updated 01/17/24 @ 13:30 by Farzana Jeffrey PA-C) COPD (chronic obstructive pulmonary disease) Abdominal aortic aneurysm Hypothyroid Hypertension Surgical History H/O sinus surgery Hx of cholecystectomy H/O shoulder surgery Social History Smoking Status: Former smoker Tobacco Type: Cigarettes Age Started Using Tobacco: 14; Age Quit Using Tobacco: 52; packs per day: 1; Hx Alcohol Use: Yes Alcohol type: beer Alcohol type Comment: 3-4 max Hx Substance Use: No Preferred Language: Ukrainian Visual Impairment: No Limitations Hearing Ability: Use of Hearing Aid Beliefs That Will Affect Care: None marital status: Current Living Situation: Spouse current occupational status: retired Feels Safe at Home: Yes Physical Exam Vital Signs Vital Signs - 24 hr 01/17/24 07:09 01/17/24 07:49 01/17/24 07:50 Temperature 36.2 C L Temperature Source Temporal Artery Scan Pulse Rate 68 66 65 Pulse Rate [Finger] Pulse Rate from SpO2 Sensor 64 64 Pulse Rhythm [Finger] Pulse Strength [Finger] Respiratory Rate 28 H 14 13 Respiratory Effort / Characteristics Respiratory Depth Shallow Blood Pressure 154/88 H Blood Pressure [Right Arm] Blood Pressure Mean 110 Blood Pressure Mean [Right Arm] Blood Pressure Position [Right Arm] Pulse Oximetry 98 97 95 Oxygen Delivery Method Room Air Oxygen Flow Rate Sepsis Recent Fever Within 48 Hours No Sepsis New/Unexplained Change in Mental Status No Sepsis Action Taken by Nursing No Action Required 01/17/24 07:50 01/17/24 07:53 01/17/24 08:00 Temperature Temperature Source Pulse Rate 65 Pulse Rate [Finger] Pulse Rate from SpO2 Sensor Pulse Rhythm [Finger] Pulse Strength [Finger] Respiratory Rate Respiratory Effort / Characteristics Respiratory Depth Blood Pressure 128/82 151/90 H Blood Pressure [Right Arm] Blood Pressure Mean 99 121 Blood Pressure Mean [Right Arm] Blood Pressure Position [Right Arm] Pulse Oximetry Oxygen Delivery Method Oxygen Flow Rate Sepsis Recent Fever Within 48 Hours Sepsis New/Unexplained Change in Mental Status Sepsis Action Taken by Nursing 01/17/24 08:00 01/17/24 09:13 01/17/24 09:14 Temperature Temperature Source Pulse Rate 60 Pulse Rate [Finger] Pulse Rate from SpO2 Sensor 60 65 Pulse Rhythm [Finger] Pulse Strength [Finger] Respiratory Rate 16 Respiratory Effort / Characteristics Respiratory Depth Blood Pressure 156/91 H Blood Pressure [Right Arm] Blood Pressure Mean 130 Blood Pressure Mean [Right Arm] Blood Pressure Position [Right Arm] Pulse Oximetry 96 93 Oxygen Delivery Method Nasal Cannula Oxygen Flow Rate 2 Sepsis Recent Fever Within 48 Hours Sepsis New/Unexplained Change in Mental Status Sepsis Action Taken by Nursing 01/17/24 09:14 01/17/24 09:15 01/17/24 09:30 Temperature Temperature Source Pulse Rate 70 Pulse Rate [Finger] 69 Pulse Rate from SpO2 Sensor 69 Pulse Rhythm [Finger] Regular Pulse Strength [Finger] Normal Respiratory Rate 14 Respiratory Effort / Characteristics Non-Labored Spontaneous Respiratory Depth Normal Blood Pressure 166/90 H Blood Pressure [Right Arm] 156/91 H Blood Pressure Mean 120 Blood Pressure Mean [Right Arm] 112 Blood Pressure Position [Right Arm] Lying Pulse Oximetry 91 92 Oxygen Delivery Method Nasal Cannula Oxygen Flow Rate 2 Sepsis Recent Fever Within 48 Hours Sepsis New/Unexplained Change in Mental Status Sepsis Action Taken by Nursing 01/17/24 09:30 01/17/24 10:00 01/17/24 10:00 Temperature Temperature Source Pulse Rate 69 71 Pulse Rate [Finger] Pulse Rate from SpO2 Sensor 69 72 Pulse Rhythm [Finger] Pulse Strength [Finger] Respiratory Rate 22 16 Respiratory Effort / Characteristics Respiratory Depth Blood Pressure 168/97 H Blood Pressure [Right Arm] Blood Pressure Mean 133 Blood Pressure Mean [Right Arm] Blood Pressure Position [Right Arm] Pulse Oximetry 95 91 Oxygen Delivery Method Oxygen Flow Rate Sepsis Recent Fever Within 48 Hours Sepsis New/Unexplained Change in Mental Status Sepsis Action Taken by Nursing 01/17/24 10:30 01/17/24 10:30 01/17/24 11:00 Temperature Temperature Source Pulse Rate 78 Pulse Rate [Finger] Pulse Rate from SpO2 Sensor 70 Pulse Rhythm [Finger] Pulse Strength [Finger] Respiratory Rate 19 Respiratory Effort / Characteristics Respiratory Depth Blood Pressure 170/99 H 143/86 H Blood Pressure [Right Arm] Blood Pressure Mean 120 131 Blood Pressure Mean [Right Arm] Blood Pressure Position [Right Arm] Pulse Oximetry 96 Oxygen Delivery Method Oxygen Flow Rate Sepsis Recent Fever Within 48 Hours Sepsis New/Unexplained Change in Mental Status Sepsis Action Taken by Nursing 01/17/24 11:00 01/17/24 11:30 01/17/24 11:30 Temperature Temperature Source Pulse Rate 69 72 Pulse Rate [Finger] Pulse Rate from SpO2 Sensor 67 72 Pulse Rhythm [Finger] Pulse Strength [Finger] Respiratory Rate 21 18 Respiratory Effort / Characteristics Respiratory Depth Blood Pressure 167/102 H Blood Pressure [Right Arm] Blood Pressure Mean 118 Blood Pressure Mean [Right Arm] Blood Pressure Position [Right Arm] Pulse Oximetry 98 98 Oxygen Delivery Method Oxygen Flow Rate Sepsis Recent Fever Within 48 Hours Sepsis New/Unexplained Change in Mental Status Sepsis Action Taken by Nursing 01/17/24 12:00 01/17/24 12:00 Temperature Temperature Source Pulse Rate 77 Pulse Rate [Finger] Pulse Rate from SpO2 Sensor 75 Pulse Rhythm [Finger] Pulse Strength [Finger] Respiratory Rate 18 Respiratory Effort / Characteristics Respiratory Depth Blood Pressure 171/87 H Blood Pressure [Right Arm] Blood Pressure Mean 111 Blood Pressure Mean [Right Arm] Blood Pressure Position [Right Arm] Pulse Oximetry 99 Oxygen Delivery Method Oxygen Flow Rate Sepsis Recent Fever Within 48 Hours Sepsis New/Unexplained Change in Mental Status Sepsis Action Taken by Nursing Constitutional: alert and oriented x3. Uncomfortable appearing but nontoxic HEENT: normocephalic, atraumatic. normal conjunctiva.PERRLA. EOM's grossly intact. Respiratory: lungs are clear to auscultation without wheezes, rhonchi, or rales bilaterally. equal chest rise. normal respiratory effort, no accessory muscle use. Cardiovascular: normal heart sounds without murmur. regular rate and rhythm. GI: abdomen with diffuse tenderness, worse RLQ. No palpable masses. Voluntary guarding. No rebound tenderness. No CVA tenderness MSK: No midline thoracic or lumbar spinal tenderness. No skin changes. Positive straight leg raise. Lower extremity ROM intact. Strength +4 and equal bilaterally Peripheral vascular: Lower extremities warm and well perfused with palpable pedal pulses. Brisk capillary refill of all digits. Sensation grossly intact Psych:appropriate mood and affect. Course Administered Medications Discontinued Medications Dexamethasone (Dexamethasone Sod Inj 4 Mg/Ml Vial) 10 mg IV NOW STA Stop: 01/17/24 07:22 Last Admin: 01/17/24 07:43 Dose: 10 mg Documented By: HAMMAD Hydromorphone HCl (Hydromorphone Inj 1 Mg/Ml Syringe) 1 mg IV NOW STA Stop: 01/17/24 07:22 Last Admin: 01/17/24 07:47 Dose: 1 mg Documented By: HAMMAD Ketorolac Tromethamine (Ketorolac Tromethamine 15 Mg/Ml Vial) 15 mg IV NOW STA Stop: 01/17/24 07:22 Last Admin: 01/17/24 07:39 Dose: 15 mg Documented By: HAMMAD Ketorolac Tromethamine (Ketorolac Tromethamine 15 Mg/Ml Vial) 15 mg IV Q6H PRN PRN Reason: Moderate Pain (Scale 4, 5, 6) Stop: 01/22/24 13:02 Last Admin: 01/17/24 13:16 Dose: 15 mg Labetalol HCl (Labetalol Hcl Iv 5 Mg/Ml 20ml) 10 mg IV NOW STA Stop: 01/17/24 12:33 Last Admin: 01/17/24 13:12 Dose: 10 mg Ondansetron HCl (Ondansetron Inj 2 Mg/Ml 2 Ml Vial) 4 mg IV PRN STA Stop: 01/17/24 07:22 Last Admin: 01/17/24 07:39 Dose: 4 mg Documented By: HAMMAD Medical Decision Making Differential Diagnosis Musculoskeletal, disc herniation, fracture, metastatic disease, cord compression, discitis, sciatica, cauda equina, infection, aortic disease, renal colic, gastrointestinal, as well as other pathologies. Laboratory Data Attestation: I reviewed the patient's lab results. 01/17/24 07:24 01/17/24 07:24 Lab Results 01/17/24 01/17/24 Range/Units 07:24 09:44 WBC 8.10 (4.8-10.8) K/ul RBC 2.99 L (4.70-6.10) M/uL Hgb 7.7 L (14.0-18.0) g/dl Hct 23.9 L (42.0-52.0) % MCV 79.9 L (80.0-100.0) fL MCH 25.8 (25.0-34.0) pg MCHC 32.2 (32.0-36.0) g/dL RDW Std Deviation 44.6 (36.4-46.3) fL RDW Coeff of Silviano 15.2 H (11.5-14.5) % Plt Count 284 (130-400) K/uL MPV 9.4 (9.4-12.4) fL Immature Gran % (Auto) 0.4 % Neut % (Auto) 73.1 % Lymph % (Auto) 9.9 % [place] % (Auto) 13.1 % Eos % (Auto) 2.6 % Baso % (Auto) 0.9 % Neut # (Auto) 5.93 (1.40-6.50) K/uL Lymph # (Auto) 0.80 L (1.20-3.40) K/uL [place] # (Auto) 1.06 H (0.11-0.59) K/uL Eos # (Auto) 0.21 (0.00-0.50) K/uL Baso # (Auto) 0.07 (0.00-0.20) K/uL Immature Gran # (Auto) 0.03 (0.01-0.20) K/uL Tear Drop Cells 1+ Ovalocytes 2+ PT 12.4 H (9.0-12.0) Seconds INR 1.1 (0.9-1.1) APTT 28 (21-31) Seconds PTT Ratio 1.0 Sodium 132 L (136-145) mmol/L Potassium 4.5 (3.5-5.1) mmol/L Chloride 100 (98-107) mmol/L Carbon Dioxide 26 (21-32) mmol/L Anion Gap 6 (3-11) BUN 17 (6-23) mg/dl Creatinine 1.39 (0.6-1.4) mg/dl Est Cr Clr Drug Dosing Not Reportable Est GFR ( Amer) 54.7 ml/min Est GFR (Non-Af Amer) 47.2 ml/min BUN/Creatinine Ratio 12.2 (10-20) Glucose 113 H (70-99(Fasting)) mg/dl Calcium 9.9 (8.6-10.3) mg/dl Total Bilirubin 0.7 (0.2-1.0) mg/dl AST 28 (13-39) U/L ALT 12 (7-52) U/L Alkaline Phosphatase 43 (34-104) U/L Total Protein 6.7 (6.0-8.3) gm/dl Albumin 4.4 (3.4-5.0) gm/dl Globulin 2.3 L (2.5-4.0) gm/dl Albumin/Globulin Ratio 1.9 (0.9-2) Urine Color Yellow Urine Appearance Clear (Clear) Urine pH 6.0 (4.5-7.5) Ur Specific [place] 1.022 (1.000-1.030) Urine Protein Negative (Negative) Urine Glucose (UA) Negative (Negative) Urine Ketones Trace H (Negative) Urine Blood Negative (Negative) Urine Nitrite Negative (Negative) Urine Bilirubin Negative (Negative) Urine Urobilinogen Negative (Negative) Ur Leukocyte Esterase Negative (Negative) Imaging Data Radiologist's Impression: Lumbar Spine MRI 01/17/24 07:22 MRI OF THE LUMBAR SPINE WITHOUT IV CONTRAST CLINICAL HISTORY: Low back pain. Radiculopathy. COMPARISON STUDY: CT of the lumbar spine dated 01/15/2024. Chest CT dated 05/29/2022. Abdominal CT dated 01/15/2024. TECHNIQUE: MRI of the lumbar spine is performed utilizing various T1 and T2- weighted sequences in the axial and sagittal planes. IV contrast was not administered for this examination. The examination is modestly degraded by motion artifact. FINDINGS: Lumbar spine: There are 6 nonrib-bearing lumbar-type vertebral bodies. Vertebral body height is maintained through the lumbar spine. There is minimal retrolisthesis at L2-L3 and L3-L4. Alignment is otherwise preserved. There is straightening of the lumbar lordosis. Lumbar levocurvature is centered at L4. Large anterior and lateral marginal osteophytes are seen throughout. The transverse and spinous processes appear intact. There is no evidence of spondylolysis. No destructive bony lesion is seen. Chronic degenerative endplate change is seen at most lumbar levels. Endplate edema is seen at all levels between L1-L2 and L4-L5. Intervertebral discs: Disc desiccation and loss of height is seen throughout the lumbar spine. Loss of height is [id number] at all levels between L2-L3 and L4-L5. Spinal cord: The visualized spinal cord is normal in morphology and signal intensity. The conus medullaris terminates at the L2-L3 interspace. The nerve roots of the cauda equina are normal in morphology. L1-L2: There is broad-based posterior disc bulge, which abuts the transiting nerve roots. There is no significant central canal stenosis. Lateral disc bulge contributes to bilateral subarticular stenosis. In conjunction with facet arthropathy, there is moderate to severe right neural foraminal stenosis. The left neural foramen is patent. L2-L3: There is broad-based posterior disc bulge, which abuts the transiting nerve roots. There is no significant acquired compromise of the central canal. Lateral disc bulges contribute to bilateral subarticular stenosis, left greater than right. This likely impinges on the exiting left L1 nerve root. In conjunction with facet arthropathy, there is [id number] left neural foraminal stenosis. The right neural foramen is patent. L3-L4: There is broad-based posterior disc bulge, which abuts the transiting nerve roots. Vewq-[id number] central canal stenosis is seen at this level with a minimum AP canal diameter of 5 mm. Lateral disc bulge contributes to bilateral subarticular stenosis, right greater than left. This may impinge on the exiting right L2 nerve root. In conjunction with facet arthropathy, there is [id number] bilateral neural foraminal stenosis. L4-L5: There is broad-based posterior disc bulge, which abuts the transiting nerve roots. In conjunction with hypertrophy of the ligamentum flavum, there is [id number] central canal stenosis at this level with a minimum AP diameter of 6 mm. Lateral disc bulge contributes to bilateral subarticular stenosis, right greater than left. This may impinge on the exiting right L3 nerve root. In conjunction with facet arthropathy, there is moderate right neural foraminal stenosis. The left neural foramen is patent. L5 to L6: There is minimal posterior disc bulge. The central canal is clear. Lateral disc bulge contributes to mild bilateral subarticular stenosis. In conjunction with facet arthropathy, there is [id number] right neural foraminal stenosis. The left neural foramen is patent. L6-S1: The central canal is clear. Facet arthropathy is of no consequence. The neural foramina are patent. Sacrum: The visualized sacrum is normal in morphology and signal intensity. Soft tissues: There is fatty atrophy of the paraspinous musculature. An infrarenal abdominal aortic aneurysm is partially visualized. IMPRESSION: 1. There are 6 nonrib-bearing lumbar-type vertebral bodies. 2. Multilevel lumbosacral spondylosis and scoliosis as above. See discussion for detailed level by level analysis. 3. Degenerative disc disease as above with multilevel degenerative endplate change and edema. 4. No destructive bony process is seen. 5. An infrarenal abdominal aortic aneurysm is noted. This was better assessed on the recent abdominal CT scan. Dictated: 01/17/2024 9:25 AM Transcribed: 01/17/2024 9:52 AM Huey [id number] [email or web address] Electronically signed by: Willi Spence M.D. 01/17/2024 10:42 AM MDM Narrative 83-year-old male who presents to the emergency department accompanied by for evaluation of right low back pain with radiculopathy. Review of pertinent visits including [facility] visit on 01/15/24 performed. Vital signs in ED stable, afebrile. Patient was seen and evaluated as above. He was recently evaluated in our emergency department on 01/13 for similar complaints. Workup at that time demonstrate concerns for growing AAA at 4.7 cm on ultrasound to 5.[address] He was transferred to [facility] for vascular surgery consultation. Reportedly, vascular surgery did not recommend any emergent intervention at this time and his pain was likely related to his spine and not his AAA. He was therefore discharged home with close follow-up with vascular surgery as well as referral to pain management. Patient return to the emergency department for intractable back pain. Denies any traumas or falls. Options of care were discussed with the patient. IV access was established and labs and imaging were obtained. CBC demonstrates no leukocytosis. Hemoglobin mildly decreased at 7.7 (8.2 on 01/13). There are no signs of active bleeding on exam. CMP demonstrates hyponatremia at 132. No other electrolyte abnormalities. Renal function within normal limits. LFTs unremarkable. Urinalysis without infection or blood. MRI of the lumbar spine was obtained given presentation and demonstrates multilevel degenerative changes. Posterior and lateral disc bulges with mild to moderate central canal stenosis noted diffusely. On exam, patient is uncomfortable appearing but nontoxic. There is no reproducible midline spinal tenderness. There is positive straight leg raise. Lower extremities are neurovascularly intact. Abdominal exam demonstrates diffuse tenderness with voluntary guarding but no focal tenderness. No rebound tenderness. Remaining physical exam was otherwise benign. He was medicated with IV Toradol, Decadron, Dilaudid for pain control. Upon reassessment, he notes improvement in his back pain following therapies and currently rates it a 3 out of 10. They were updated on all exam findings and test results. He is multilevel disc disease throughout the lumbar spine which is likely the source to his pain. There is no significant canal stenosis or signs of cauda equina. We reviewed labs, he has not noticed any blood in his urine or stool. It is possible he has a slow GI bleed and would benefit from gastroenterology evaluation for possible scope. Treatment options were discussed with the patient and including admission to the hospital for monitoring/gastroenterology evaluation and PT/OT versus outpatient management with pain control and outpatient follow-up. Patient would like to be admitted to the hospital for IV pain control and PT/OT evaluation as he does not think he can manage his pain at home despite tramadol and Percocet. I do feel this is reasonable at this time. Case was discussed with on-call hospitalist Eli SALOMON, who graciously accepted patient to their service for further evaluation and management. Patient did not require anything additional for pain under my care. He was admitted in stable condition. Case was discussed with ED attending, Dr. Cooper, who agrees with workup and treatment plan Impression & Plan Degenerative joint disease (DJD) of lumbar spine, Abdominal aortic aneurysm, Intractable back pain, Anemia Discharge Plan Visit Data Chief Complaint: Back Injury/Pain Stated Complaint: SEVERE BACK PAIN,RADIATING DOWN LEG ED Provider: Joel Cooper ED Midlevel Provider: Farzana Jeffrey Discharge Problem: Degenerative joint disease (DJD) of lumbar spine, Abdominal aortic aneurysm, Intractable back pain, Anemia Patient Disposition: Admitted As Inpatient Discharge Instructions Interventions: ED Discharge Assessment Last Done: 01/17/24 12:23
[2024-01-17 07:38] LABS: Basophils # (auto) 0.07 K/uL (0.00-0.20); Basophils % (auto) 0.9 %; Eosinophils # (auto) 0.21 K/uL (0.00-0.50); Eosinophils % (auto) 2.6 %; Hematocrit (blood only) 23.9 % (42.0-52.0); Hemoglobin 7.7 g/dl (14.0-18.0); Immature Granulocytes # (auto) 0.03 K/uL (0.01-0.20); Immature Granulocytes % (auto) 0.4 %; Lymphocytes % (auto) 9.9 %; Mean Corpuscular Hemoglobin 25.8 pg (25.0-34.0); Mean Corpuscular Hgb Conc 32.2 g/dL (32.0-36.0); Mean Corpuscular Volume 79.9 fL (80.0-100.0); Mean Platelet Volume 9.4 fL (9.4-12.4); Monocytes # (auto) 1.06 K/uL (0.11-0.59); Monocytes % (auto) 13.1 %; Neutrophils # (auto) 5.93 K/uL (1.40-6.50); Neutrophils % (auto) 73.1 %; Platelet Count 284 K/uL (130-400); RDW Coefficient of Variation 15.2 % (11.5-14.5); RDW Standard Deviation 44.6 fL (36.4-46.3); Red Blood Count 2.99 M/uL (4.70-6.10)
[2024-01-17] MEDS: ONDANSETRON INJ 2 MG/ML 2 ML VIAL IV STA (07:39)
[2024-01-17] MEDS: KETOROLAC TROMETHAMINE 15 MG/ML VIAL IV STA (07:39)
[2024-01-17] MEDS: DEXAMETHASONE SOD INJ 4 MG/ML VIAL IV STA (07:43)
[2024-01-17] MEDS: HYDROmorphone INJ 1 MG/ML SYRINGE IV STA (07:47)
[2024-01-17 08:10] LABS: Ovalocytes 2+; Tear Drop Cells 1+
[2024-01-17 08:14] LABS: Alanine Aminotransferase 12 U/L (7-52); Albumin Globulin Ratio 1.9 (0.9-2); Albumin Level 4.4 gm/dl (3.4-5.0); Alkaline Phosphatase 43 U/L (34-104); Anion Gap 6 (3-11); Aspartate Aminotransferase 28 U/L (13-39); BUN Creatinine Ratio 12.2 (10-20); Bilirubin,Total 0.7 mg/dl (0.2-1.0); Blood Urea Nitrogen 17 mg/dl (6-23); Calcium 9.9 mg/dl (8.6-10.3); Carbon Dioxide 26 mmol/L (21-32); Chloride 100 mmol/L (98-107); Est GFR (African American) 54.7 ml/min; Est GFR (Non-African American) 47.2 ml/min; Globulin 2.3 gm/dl (2.5-4.0); Glucose 113 mg/dl (70-99(Fasting)); Potassium 4.5 mmol/L (3.5-5.1); Sodium 132 mmol/L (136-145); Total Protein 6.7 gm/dl (6.0-8.3)
[2024-01-17 08:45] LABS: INR 1.1 (0.9-1.1); Partial Thromboplastin Time 28 Seconds (21-31); Prothrombin Time 12.4 Seconds (9.0-12.0)
[2024-01-17 09:59] LABS: Appearance Urine Clear (Clear); Bilirubin Urine Negative (Negative); Blood Urine Negative (Negative); Color Urine Yellow; Glucose Urine UA Negative (Negative); Ketones Urine Trace (Negative); Leukocyte Esterase Urine Negative (Negative); Nitrite Urine Negative (Negative); Protein Urine Negative (Negative); Specific Gravity Urine 1.022 (1.000-1.030); Urobilinogen Urine Negative (Negative)
--- NOTE | 2024-01-17 10:43 | Magnetic Resonance Report ---
MRI OF THE LUMBAR SPINE WITHOUT IV CONTRAST CLINICAL HISTORY: Low back pain. Radiculopathy. COMPARISON STUDY: CT of the lumbar spine dated 01/15/2024. Chest CT dated 05/29/2022. Abdominal CT date d 01/15/2024. TECHNIQUE: MRI of the lumbar spine is performed utilizing various T1 and T2-weighted sequences in the axial and sagittal planes. IV contrast was not administered for this examination. The examination is modestly degraded by motion artifact. FINDINGS: Lumbar spine: There are 6 nonrib-bearing lumbar-type vertebral bodies. Vertebral body height is maint ained through the lumbar spine. There is minimal retrolisthesis at L2-L3 and L3-L4. Alignment is othe rwise preserved. There is straightening of the lumbar lordosis. Lumbar levocurvature is centered at L 4. Large anterior and lateral marginal osteophytes are seen throughout. The transverse and spinous pr ocesses appear intact. There is no evidence of spondylolysis. No destructive bony lesion is seen. Chr onic degenerative endplate change is seen at most lumbar levels. Endplate edema is seen at all levels between L1-L2 and L4-L5. Intervertebral discs: Disc desiccation and loss of height is seen throughout the lumbar spine. Loss o f height is sopfqmrh-kn-lnbgwy at all levels between L2-L3 and L4-L5. Spinal cord: The visualized spinal cord is normal in morphology and signal intensity. The conus medul olivia terminates at the L2-L3 interspace. The nerve roots of the cauda equina are normal in morpholog y. L1-L2: There is broad-based posterior disc bulge, which abuts the transiting nerve roots. There is no significant central canal stenosis. Lateral disc bulge contributes to bilateral subarticular stenosi s. In conjunction with facet arthropathy, there is moderate to severe right neural foraminal stenosis . The left neural foramen is patent. L2-L3: There is broad-based posterior disc bulge, which abuts the transiting nerve roots. There is no significant acquired compromise of the central canal. Lateral disc bulges contribute to bilateral read barticular stenosis, left greater than right. This likely impinges on the exiting left L1 nerve root. In conjunction with facet arthropathy, there is dgmcwdrq-zc-dapenm left neural foraminal stenosis. T he right neural foramen is patent. L3-L4: There is broad-based posterior disc bulge, which abuts the transiting nerve roots. Mild-to-mod erate central canal stenosis is seen at this level with a minimum AP canal diameter of 5 mm. Lateral disc bulge contributes to bilateral subarticular stenosis, right greater than left. This may impinge on the exiting right L2 nerve root. In conjunction with facet arthropathy, there is rdbn-ts-hwcbmhid bilateral neural foraminal stenosis. L4-L5: There is broad-based posterior disc bulge, which abuts the transiting nerve roots. In conjunct ion with hypertrophy of the ligamentum flavum, there is pdrd-rj-jlxymvsy central canal stenosis at th is level with a minimum AP diameter of 6 mm. Lateral disc bulge contributes to bilateral subarticular stenosis, right greater than left. This may impinge on the exiting right L3 nerve root. In conjuncti on with facet arthropathy, there is moderate right neural foraminal stenosis. The left neural foramen is patent. L5 to L6: There is minimal posterior disc bulge. The central canal is clear. Lateral disc bulge cont ributes to mild bilateral subarticular stenosis. In conjunction with facet arthropathy, there is mild -to-moderate right neural foraminal stenosis. The left neural foramen is patent. L6-S1: The central canal is clear. Facet arthropathy is of no consequence. The neural foramina are pa tent. Sacrum: The visualized sacrum is normal in morphology and signal intensity. Soft tissues: There is fatty atrophy of the paraspinous musculature. An infrarenal abdominal aortic a neurysm is partially visualized. IMPRESSION: 1. There are 6 nonrib-bearing lumbar-type vertebral bodies. 2. Multilevel lumbosacral spondylosis and scoliosis as above. See discussion for detailed level by le rafael bedolla. 3. Degenerative disc disease as above with multilevel degenerative endplate change and edema. 4. No destructive bony process is seen. 5. An infrarenal abdominal aortic aneurysm is noted. This was better assessed on the recent abdominal CT scan. Dictated: 01/17/2024 9:25 AM Transcribed: 01/17/2024 9:52 AM Huey [id number] [email or web address] Electronically signed by: Willi Spence M.D. 01/17/2024 10:42 AM
--- NOTE | 2024-01-17 12:04 | History & Physical Report ---
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 Multilevel lumbosacral stenosis, spondylosis and scoliosis Multilevel disc bulges DDD of lumbar spine Intractable Back Pain Pt presenting once more for intractable RIGHT sided back pain Was seen for the same in the ED before being transferred to [facility] for concerning AAA on January 14, discharged from the ED there on the same day. No relief from home Percocet, tramadol No relief from lidocaine patch he was discharged from [facility] with, not yet followed up with Pain Management to whom he was referred Pain currently down to 5/10 on admission from /10 on ED presentation, states urinary symptoms have improved. Notes Hx of BPH Received IV Dilaudid 1mg, IV Dexamethasone 10mg, IV Toradol 15mg in the ED Continue with PO tylenol 1000mg q8h prn for mild pain, and IV Dilaudid 0.5mg q6h for mod-severe pain Continue home gabapentin 800mg qhs Placed on pantoprazole IV push BID in setting of concern for anemia, ?GI bleed (see below), will hold further doses of steroids/NSAIDs Ortho spine consulted, appreciate recs Anemia Possible GI Bleed Hgb of 7.7 on admission today Down from 8.2 two days ago Per , pt's stools are "almost black", denies micki BRBPR FOBT ordered and pending Anemia appears microcytic, MCV 79 Per pt, pcp wanted him to get a colonoscopy, has not yet AM iron panel and ferritin. B12 and folate added as well. PPI pushes BID as above Holding home Eliquis 5mg BID, resume as soon as able GI consulted, appreciate recs Transfuse for hgb <7, or 8 +symptoms Continue to monitor with AM labs AAA Iliac artery aneurysm Noted on CT abd pelvis AAA increased in size to 5.2 x 4.6cm Was previously transferred to [facility], seen in the ED there by Vascular Surgery fellow, recommended statin and aspirin Has scheduled followup on February 15 with Vascular Surgery at [facility] with Dr Russell Tight blood pressure control in setting of above (see below) Pt no longer smoking, states he quit about 20 years ago Continue statin, aspirin HTN BP 171/81 on admission Likely elevated in setting of pain above Given 1 dose of Labetalol 10mg, BP 130/75 on re-check Continue with home amlodipine 5mg and lisinopril 15mg scheduled daily, titrate up as needed Goal BP <140/90 in setting of AAA above, IV Labetalol 5mg ordered prn with parameters to be given for SBP >140 or DBP >90 Continue to monitor PAF SSS s/p pacemaker placement Not on rate controlling meds On Eliquis 5mg BID, holding in the setting of anemia above, resume as soon as able Consider decreasing dose to 2.5mg BID if kidney function worsens to 1.5 as pt >80 (see below) Dehydration Acute on Chronic Kidney Disease Ketones noted on UA Cr wnl but elevated at 1.39, down from 1.41 a few days ago Patient states he has not been able to eat or drink for a few days NSS x2 bags Continue to monitor with AM labs Hyponatremia Sodium of 132 NSS as above Monitor with AM labs If persistently low consider further workup Hyperglycemia Prediabetes Glucose elevated AM [id number] pending COPD/Asthma Follows with [facility] pulmonology Does not use oxygen at home, though they note he should Requiring 2-3L on admission Repeat chest XRAY ordered Consider CT chest Oxygen supplementation as needed, wean as tolerated Continue home inhalers Continue to monitor GERD Holding home omeprazole Continue with pantoprazole above Insomnia On klonipin prn at home, holding as pt on IV narcotics Also on gabapentin 800mg qhs which can be sedating Melatonin prn ordered, consider trazodone qhs. Resume klonipin as able Continue other home meds as ordered DVT prophylaxis: Holding eliquis in setting of anemia/possible GI bleed, SCDs ordered CODE STATUS: Full code Diet: HH/DMII Dispo: Med/Surg with tele History of Present Illness Chief Complaint: back pain Primary Care Provider: Soraya Dumont Pt is an 83yoM with PMHx significant for SSS s/p pacemaker placement, HTN, COPD with asthma, Prediabetes, hypothyroidism, PAF, GERD, CKD and known AAA with further enlargement presenting once more with intractable back pain. Pt presenting once more for intractable RIGHT sided back pain. States that he was seen for the same in the ED about two days ago before being transferred to [facility] for concerning AAA on January 14, discharged from the ED there on the same day. States that he was discharged with lidocaine patches and told to follow up with pcp. Per , he was not comfortable at home. Pacing and walking in an attempt to relieve the pain. Pt states that he has not been able to sleep for many nights. No relief from home Percocet, tramadol. No relief from lidocaine patch he was discharged from [facility] with, not yet followed up with Pain Management to whom he was referred Pain currently down to 5/10 from 08/10 on ED presentation, states urinary symptoms have improved. Notes Hx of BPH. States he would just like to sleep tonight. states that the anemia is known and being worked up by pt's PCP. Per , pt was told that he would need a colonoscopy but refused. They note that they have not seen micki blood in the stools but his stools have been "almost black". Denies dizziness or episodes of syncope. Does have some SOB but they note he is supposed to use oxygen, and that pulmonology is working with them to get it at home. Received IV Dilaudid 1mg, IV Dexamethasone 10mg, IV Toradol 15mg in the ED Allergies Allergy/AdvReac Type Severity Reaction Status Date / Time amoxicillin Allergy Severe HIVES Verified 05/20/23 11:18 Sulfa (Sulfonamide Allergy Severe HIVES Verified 05/20/23 11:18 Antibiotics) Penicillins Allergy Intermediate HIVES Verified 05/20/23 11:18 levofloxacin [From Levaquin] AdvReac Intermediate swelling Verified 05/20/23 11:18 of neck and should area Home Medications Medication Instructions Recorded Confirmed Type amlodipine 5 mg tablet 5 mg PO DAILY 06/09/19 01/17/24 History ascorbic acid (vitamin C) 1,000 mg 1 gm PO DAILY 06/09/19 01/17/24 History tablet aspirin 81 mg tablet,delayed 81 mg PO DAILY 06/09/19 01/17/24 History release (Adult Low Dose Aspirin) atorvastatin 20 mg tablet (Lipitor) 20 mg PO DAILY 06/09/19 01/17/24 History cod liver oil 1 cap PO DAILY 06/09/19 01/17/24 History latanoprost 0.005 % eye drops 1 drops OPB QPM 06/09/19 01/17/24 History lisinopril 30 mg tablet 15 mg PO DAILY 06/09/19 01/17/24 History omeprazole 40 mg capsule,delayed 40 mg PO DAILY 06/09/19 01/17/24 History release tramadol 50 mg tablet 50 mg PO Q6H PRN Pain 06/09/19 01/17/24 History calcium carbonate 500 mg calcium 500 mg PO DAILY 02/13/22 01/17/24 History (1,250 mg) chewable tablet (Calcium 500) timolol maleate 0.5 % eye drops 1 drp OPR QAM 02/13/22 01/17/24 History cholecalciferol (vitamin D3) 50 50 mcg PO DAILY 02/25/22 01/17/24 History mcg (2,000 unit) capsule diclofenac sodium 1 % topical gel 4 g topical QID PRN Other 02/25/22 01/17/24 History fluticasone propionate 50 2 spray intranasal DAILY 02/25/22 01/17/24 History mcg/actuation nasal spray,suspension hydrocodone 5 mg-acetaminophen 325 1 tab PO Q6H PRN Pain 02/25/22 01/17/24 History mg tablet imiquimod 5 % topical cream packet 1 applic topical TID PRN Other 02/25/22 01/17/24 History triamcinolone acetonide 0.1 % 1 applic topical TID PRN Other 02/25/22 01/17/24 History topical cream gabapentin 800 mg tablet 800 mg PO HS 05/20/23 01/17/24 History albuterol sulfate 90 mcg/actuation 2 puff inhalation Q6H PRN 05/28/23 01/17/24 Rx aerosol inhaler (Ventolin HFA) shortness of breath or wheezing #3 Inhalers budesonide 0.25 mg/2 mL suspension 0.25 mg (2 mL) inhalation BID #180 05/28/23 01/17/24 Rx for nebulization mL guaifenesin 600 mg tablet, 600 mg PO BID PRN congestion #180 05/28/23 01/17/24 Rx extended release 12 hr (Mucinex) tabs montelukast 10 mg tablet 10 mg PO DAILY #90 tabs 05/28/23 01/17/24 Rx tiotropium 2.5 mcg-olodaterol 2.5 2 puff inhalation DAILY #3 Inhalers 05/28/23 01/17/24 Rx mcg/actuation mist for inhalation (Stiolto Respimat) apixaban 5 mg tablet (Eliquis) 5 mg PO BID 01/17/24 01/17/24 History clonazepam 0.5 mg tablet 0.5 mg PO HS insomnia or anxiety 01/17/24 01/17/24 History finasteride 5 mg tablet 5 mg PO DAILY 01/17/24 01/17/24 History ipratropium 0.5 mg-albuterol 3 mg 3 ml inhalation UD 01/17/24 01/17/24 History (2.5 mg base)/3 mL nebulization soln levothyroxine 75 mcg tablet 75 mcg PO DAILY 01/17/24 01/17/24 History tamsulosin 0.4 mg capsule 0.4 mg PO DAILY 01/17/24 01/17/24 History Past Med/Surg History Medical History COPD (chronic obstructive pulmonary disease) Abdominal aortic aneurysm Hypothyroid Hypertension Surgical History H/O sinus surgery Hx of cholecystectomy H/O shoulder surgery Social History Smoking Status: Former smoker Tobacco Type: Cigarettes Age Started Using Tobacco: 14; Age Quit Using Tobacco: 52; packs per day: 1; Hx Alcohol Use: Yes Alcohol type: beer Alcohol type Comment: 3-4 max Hx Substance Use: No Preferred Language: Kittitian Visual Impairment: No Limitations Hearing Ability: Use of Hearing Aid Beliefs That Will Affect Care: None marital status: Current Living Situation: Spouse current occupational status: retired Feels Safe at Home: Yes Review of Systems Review of Systems: All systems reviewed & are unremarkable except as noted in HPI & below Physical Exam Physical Exam: General: Alert, oriented. No acute distress Skin: No noted rashes or bruises Psych: Appropriate mood and affect Neuro: Difficulty with getting into the bed from a standing position. Straight leg raise negative on both the right and left HEENT: NC/AT Chest: Nontender to palpation. CV: RRR Resp: Breath sounds clear bilaterally, no increased effort of breathing. Abdomen: Soft, nontender, nondistended Extremities: No edema in lower extremities bilaterally. Results & Data Results & Data Vital Signs (Past 12 Hours) Vital Signs Temp Pulse Pulse Resp BP BP Pulse Ox 01/17/24 10:30 78 19 96 01/17/24 10:30 170/99 H 01/17/24 10:00 71 16 91 01/17/24 10:00 168/97 H 01/17/24 09:30 69 22 95 01/17/24 09:30 166/90 H 01/17/24 09:15 69 14 156/91 H 92 01/17/24 09:14 70 91 01/17/24 09:14 156/91 H 01/17/24 09:13 93 01/17/24 08:00 60 16 96 01/17/24 08:00 151/90 H 01/17/24 07:53 65 01/17/24 07:50 128/82 01/17/24 07:50 65 13 95 01/17/24 07:49 66 14 97 01/17/24 07:09 36.2 C L 68 28 H 154/88 H 98 O2 Del Method O2 Flow Rate 01/17/24 10:30 01/17/24 10:30 01/17/24 10:00 01/17/24 10:00 01/17/24 09:30 01/17/24 09:30 01/17/24 09:15 Nasal Cannula 2 01/17/24 09:14 01/17/24 09:14 01/17/24 09:13 01/17/24 08:00 Nasal Cannula 2 01/17/24 08:00 01/17/24 07:53 01/17/24 07:50 01/17/24 07:50 01/17/24 07:49 01/17/24 07:09 Room Air Diagnostic Findings Lumbar Spine MRI 01/17/24 07:22 MRI OF THE LUMBAR SPINE WITHOUT IV CONTRAST CLINICAL HISTORY: Low back pain. Radiculopathy. COMPARISON STUDY: CT of the lumbar spine dated 01/15/2024. Chest CT dated 05/29/2022. Abdominal CT dated 01/15/2024. TECHNIQUE: MRI of the lumbar spine is performed utilizing various T1 and T2- weighted sequences in the axial and sagittal planes. IV contrast was not administered for this examination. The examination is modestly degraded by motion artifact. FINDINGS: Lumbar spine: There are 6 nonrib-bearing lumbar-type vertebral bodies. Vertebral body height is maintained through the lumbar spine. There is minimal retrolisthesis at L2-L3 and L3-L4. Alignment is otherwise preserved. There is straightening of the lumbar lordosis. Lumbar levocurvature is centered at L4. Large anterior and lateral marginal osteophytes are seen throughout. The transverse and spinous processes appear intact. There is no evidence of spondylolysis. No destructive bony lesion is seen. Chronic degenerative endplate change is seen at most lumbar levels. Endplate edema is seen at all levels between L1-L2 and L4-L5. Intervertebral discs: Disc desiccation and loss of height is seen throughout the lumbar spine. Loss of height is jshqyqoi-vz-adstyy at all levels between L2-L3 and L4-L5. Spinal cord: The visualized spinal cord is normal in morphology and signal intensity. The conus medullaris terminates at the L2-L3 interspace. The nerve roots of the cauda equina are normal in morphology. L1-L2: There is broad-based posterior disc bulge, which abuts the transiting nerve roots. There is no significant central canal stenosis. Lateral disc bulge contributes to bilateral subarticular stenosis. In conjunction with facet arthropathy, there is moderate to severe right neural foraminal stenosis. The left neural foramen is patent. L2-L3: There is broad-based posterior disc bulge, which abuts the transiting nerve roots. There is no significant acquired compromise of the central canal. Lateral disc bulges contribute to bilateral subarticular stenosis, left greater than right. This likely impinges on the exiting left L1 nerve root. In conjunction with facet arthropathy, there is cotfrgqa-on-egspyt left neural foraminal stenosis. The right neural foramen is patent. L3-L4: There is broad-based posterior disc bulge, which abuts the transiting nerve roots. Ztdx-pt-yngoiabo central canal stenosis is seen at this level with a minimum AP canal diameter of 5 mm. Lateral disc bulge contributes to bilateral subarticular stenosis, right greater than left. This may impinge on the exiting right L2 nerve root. In conjunction with facet arthropathy, there is rniv-wh-vdoctdqn bilateral neural foraminal stenosis. L4-L5: There is broad-based posterior disc bulge, which abuts the transiting nerve roots. In conjunction with hypertrophy of the ligamentum flavum, there is xzte-dw-ljnlvsqp central canal stenosis at this level with a minimum AP diameter of 6 mm. Lateral disc bulge contributes to bilateral subarticular stenosis, right greater than left. This may impinge on the exiting right L3 nerve root. In conjunction with facet arthropathy, there is moderate right neural foraminal stenosis. The left neural foramen is patent. L5 to L6: There is minimal posterior disc bulge. The central canal is clear. Lateral disc bulge contributes to mild bilateral subarticular stenosis. In conjunction with facet arthropathy, there is hhwi-jb-cyhpxdoh right neural foraminal stenosis. The left neural foramen is patent. L6-S1: The central canal is clear. Facet arthropathy is of no consequence. The neural foramina are patent. Sacrum: The visualized sacrum is normal in morphology and signal intensity. Soft tissues: There is fatty atrophy of the paraspinous musculature. An infrarenal abdominal aortic aneurysm is partially visualized. IMPRESSION: 1. There are 6 nonrib-bearing lumbar-type vertebral bodies. 2. Multilevel lumbosacral spondylosis and scoliosis as above. See discussion for detailed level by level analysis. 3. Degenerative disc disease as above with multilevel degenerative endplate change and edema. 4. No destructive bony process is seen. 5. An infrarenal abdominal aortic aneurysm is noted. This was better assessed on the recent abdominal CT scan. Dictated: 01/17/2024 9:25 AM Transcribed: 01/17/2024 9:52 AM Huey [id number] [email or web address] Electronically signed by: Willi Spence M.D. 01/17/2024 10:42 AM
[2024-01-17] MEDS ORDERED: HYDROmorphone INJ 0.5 MG/0.5 ML SYR IV PRN (13:03)
[2024-01-17] MEDS ORDERED: ACETAMINOPHEN 500 MG TAB PO PRN (13:03)
[2024-01-17] MEDS: LABETALOL HCL IV 5 MG/ML 20ML IV STA (13:12)
[2024-01-17] MEDS ORDERED: dexAMETHasone 8 MG in SYRINGE 0 ML IV SCH (13:15)
[2024-01-17] MEDS: KETOROLAC TROMETHAMINE 15 MG/ML VIAL IV PRN (13:16)
[2024-01-17] MEDS ORDERED: ONDANSETRON INJ 2 MG/ML 2 ML VIAL IV PRN (13:29)
[2024-01-17] MEDS ORDERED: LABETALOL HCL IV 5 MG/ML 20ML IV PRN (13:48)
[2024-01-17] MEDS: SODIUM CHLORIDE 0.9% 1,000 ML IV SCH (14:04)
[2024-01-17] MEDS ORDERED: ALBUTEROL HFA 8 GM INHALER INH PRN (14:28)
--- NOTE | 2024-01-17 14:48 | XRay Report ---
XR chest 1V portable HISTORY: increased oxygen need, shortness of breath COMPARISON: Chest 01/14/2024. FINDINGS: No pneumothorax. No pleural effusions. There are low lung volumes. The heart remains enlarg ed. No evidence for pulmonary edema. A few bibasilar linear densities favor subsegmental atelectasis. This is similar to the prior study. No new focal lung consolidations to suggest a pneumonia. There i s a left-sided dual-chamber pacemaker. A moderate hiatus hernia is again noted. There are calcificati ons within the aortic knob. IMPRESSION: No significant change compared to the prior study. No acute process. ACT 112: Negative or not required by law. Electronically signed by: Johan Lang M.D. 01/17/2024 2:47 PM
[2024-01-17] MEDS: HYDROmorphone INJ 0.5 MG/0.5 ML SYR IV PRN (16:34)
--- NOTE | 2024-01-17 17:26 | Electrocardiogram Report ---
Test Reason : Blood Pressure : / mmHG Vent. Rate : 068 BPM Atrial Rate : 068 BPM P-R Int : 272 ms QRS Dur : 126 ms QT Int : 404 ms P-R-T Axes : 076 -51 081 degrees QTc Int : 429 ms Sinus rhythm with 1st degree A-V block with Premature atrial complexes Left axis deviation Non-specific intra-ventricular conduction block Minimal voltage criteria for LVH, may be normal variant Abnormal ECG When compared with ECG of 14-JAN-2024 21:36, No significant change was found Confirmed by Isra Mantilla ([id number]) on 01/17/2024 5:26:28 PM Referred By: REFERRED SELF Confirmed By:Trent Mantilla
--- OUTSIDE RECORDS SUMMARY | 2024-01-17 19:49 | External Medical Summary | Summary of Care ---
Author Name Unknown Organization [facility] Address [address] [place] [address] Phone [phone] Care Team Providers Care Skiver Machine Name Role Phone Raza Dumont DO Primary Care Provider + [phone] Reason for Visit * Reason Onset Date Comments Hospital Follow-Up 01/15/2024 Encounter Details Date Type Department Care Team (Late st Contact Info) Description 01/15/2024 Telephone [place] [address] [place] [address] Raza Dumont DO [address] [place] [address] Hospital Follow-Up Allergies Active Allergy Reactions Criticality Noted Date Comments Amoxicillin 09/06/1998 hives and swelling Clindamycin Edema airway,Edema face/lips/tongue High 04/26/2017 Sulfa Antibiotics Hives 08/09/2012 documented as of this encounter (statuses as of 01/17/2024) Medications Medication Sig Dispensed Refills Start Date [...] eye every morning. 0 01/20/2022 Active Tiotropium [place] Monohydrate 18 MCG Inhalation Capsule (Spiriva) Inhale [...] as of this encounter (statuses as of 01/17/2024) Active Problems Problem Noted Date Diagnosed Date [...] as of this encounter (statuses as of 01/17/2024) Resolved Problems Problem Noted Date Diagnosed Date [...] as of this encounter (statuses as of 01/17/2024) Immunizations Name Administration Dates Next Due COVID-19 [...] encounter Miscellaneous Notes * Telephone Encounter - Avis Palmer OSA - 01/17/2024 8:20 AM EDT Scheduled. 01/17/2024 * Telephone Encounter - Leigh Carlin OSA - 01/15/2024 3:10 PM EDT Patient Name: TONIA VALLES([id number])Sex: MaleDOB: 1940 PCP: RAZA DUMONT Center: [facility] Types of orders made on 01/15/2024: Code Status, Consult, EKG, IP Post Discharge , Lab, MedicationsOrder Date:01/15/2024Ordering User:LUANN VARGAS [[id number]]Attending Provider:Sean Hernandez MD [[id number]]Authorizing Provider: Luann Vargas MD [[id number]]Department:[facility][[id number]]Order Specific InformationOrder: RETURN APPT [CUSTOM: [id number]] Order #: [id number]: 1 Priority: Routine Class: Nursing Unit Department (Single Entry) -> Family Practice Appt Needed Within: (Specify # of Days, Weeks, Months) -> 3 Days Provider -> RAZA DUMONT Released on: 01/15/2024 2:18 PM Priority: Routine Class: Nursing Unit Department (Single Entry) -> Family Practice Appt Needed Within: (Specify # of Days, Weeks, Months)-> 3 Days Provider -> RAZA DUMONT Released on: 01/15/2024 2:18 PM documented in this encounter Plan of Treatment Upcoming Encounters Date Type Department Care Team (Late st Contact Info) Description 01/20/2024 10:20 AM EDT [facility] [address] [facility] [phone] Joel Bañuelos MD [address] [facility] [place] [address] 02/16/2024 8:30 AM EDT Office Visit Vascular Surgery, [facility] [address] [facility] [place] [address] Nilo Russell MD [address] [place] [address] 04/20/2024 11:40 AM EDT Office Visit [facility] [address] [facility] [place] [phone] Irma Price DO [address] [facility] [place] [address] 06/22/2024 8:10 AM EDT Office Visit [facility] [address] [facility] [phone] Raza Dumont, [address] [facility] [address] Health Maintenance Due Date Last Done Comments Alpha-1 Antitrypsin 1958 COVID-19 Vaccine ( season) 2023 06/05/2022, 09/29/2021, 02/03/2021, Additional history exists Albumin/Creatinine Ratio 03/31/2024 03/31/2023, 12/2018 CKD PHOS USE SMARTSET 95003 03/31/2024 03/31/2023, 0 11/03/2018 Depression Screening 03/31/2024 03/31/2023 GFR 07/17/2024 01/15/2024, 12/02, 11/26/2023, Additional history exists TSH 08/06/2024 08/06/2023, 11/2021, 02/19/2022, Additional history exists HbA1c 12/16/2024 12/16/2023, 04/2023, 07/02/2022, Additional history exists CKD HGB USE SMARTSET 46611 01/14/202501/14, 12/16/2023, 11/26/2023, Additional history exists O2 [...] Not on filedocumented as of this encounter Advance Directives Latest Code Status on File Code Status Date Activated Date Inactivated Comments Full Code 01/15/2024 12:03 PM 01/15/2024 6:51 PM This order reflects the patients wishes and were consensually agreed upon. Question Answer Comments Discussion of Advance Directives occurred with: Patient Care Teams Skiver Machine Relationship Specialty Start Date End Date Raza Dumont DO [address] [place] [address] PCP - General Family Medicine 04/28/12 documented as of this encounter
[2024-01-17] MEDS: DOCUSATE SODIUM 100 MG CAP PO SCH (21:35)
[2024-01-17] MEDS ORDERED: ACETAMINOPHEN 325 MG TAB PO PRN (22:11)
[2024-01-17] MEDS: PANTOprazole 40 MG in SYRINGE 0 ML IV SCH (22:37)
[2024-01-17] MEDS: LATANOPROST 0.005% OP SOLN 2.5 ML BTL OPB SCH (22:37)
[2024-01-17] MEDS: GABAPENTIN 800 MG TAB PO SCH (22:38)
[2024-01-18 06:33] LABS: Albumin Level 3.6 gm/dl (3.4-5.0); Bilirubin,Total 0.4 mg/dl (0.2-1.0); Calcium 8.5 mg/dl (8.6-10.3); Potassium 4.4 mmol/L (3.5-5.1)
[2024-01-18 06:39] LABS: Albumin Globulin Ratio 1.7 (0.9-2); Creatinine Clr Calc Pharmacy 38.9 ml/min; Est GFR (African American) 49.9 ml/min; Globulin 2.1 gm/dl (2.5-4.0); Total Protein 5.7 gm/dl (6.0-8.3)
[2024-01-18 06:45] LABS: Hematocrit (blood only) 20.8 % (42.0-52.0); Hemoglobin 6.3 g/dl (14.0-18.0); Mean Corpuscular Hemoglobin 24.8 pg (25.0-34.0); Mean Corpuscular Hgb Conc 30.3 g/dL (32.0-36.0); Mean Corpuscular Volume 81.9 fL (80.0-100.0); Mean Platelet Volume 9.7 fL (9.4-12.4); Platelet Count 245 K/uL (130-400); RDW Coefficient of Variation 15.6 % (11.5-14.5); RDW Standard Deviation 46.4 fL (36.4-46.3); Red Blood Count 2.54 M/uL (4.70-6.10); White Blood Count 7.89 K/ul (4.8-10.8)
[2024-01-18 07:07] LABS: Estimated Average Glucose 134 mg/dl; Hemoglobin A1C 6.3 % (4.5-5.6)
[2024-01-18] MEDS ORDERED: PANTOPRAZOLE BOLUS/DRIP IV STA (07:15)
--- NOTE | 2024-01-18 07:16 | Gastrointestinal Consultation ---
Date of Consultation January 18, 2024 Assessment & Plan (1) Anemia: Pt is a 83 yo male w hx of SSS s/p pacemaker placement, COPD, Afib on Eliquis, CKD, iron deficiency anemia, seen for anemia and symptoms of black stools. He is hemodynamically stable but blood ct dropped overnight. - PPI IV BID - NPO for EGD eval today - Monitor blood ct and transfuse for goal >87 - F/U B12 and Folate levels - Further GI recs after EGD completed Supervising Physician Co-Signing Physician Notes I saw and evaluated the patient, we were consulted for evaluation of progressive anemia in the setting of possible melena. We are planning to do upper endoscopy for further evaluation today. I discussed the risks and benefits with the patient to include bleeding, infection, perforation, pain, cardiac problems and pulmonary problems. We have also discussed the increased risk of perioperative complications given the patient's pulmonary, cardiac history and vascular history. If the upper endoscopy proves to be within normal limits repeat evaluation by vascular surgery may be warranted. In addition we could certainly consider further evaluation with a colonoscopy. History of Present Illness Reason for Consultation: Anemia, melena Requesting Physician: Dr. Carolina Garcia Attending Physician: Dr. Liset Johnson History of Present Illness Pt is a 83 yo male w PMhx as noted below including SSS s/p pacemaker placement, Afib on Eliquis, CKD, who presented to ED yesterday w c/o R sided black pain. Recently was just DC'd from [facility] after being transferred there for concerns of AAA but this was ruled out by Vascular Surgery. He was given Lidocaine patches and been taking home Percocet & Tramadol wo relief of pain. Upon his evaluation, it's noted that he's anemic w Hgb of 7, no leukocytosis, thrombocytopenia or coagulopathy. He has CKD, renal function at baseline. Iron level low, B12 and Folate pending. Anemia is known and PCP recommended colonoscopy before but pt refused. He does have SOB but denies any dizziness, or syncope, CP, abd pain, n/v. Stools had been black at home. EGD/EUS 2012 - benign esophageal stenosis, hiatal hernia, antritis, gallbladder sludge, CBD dilation 11mm Colonoscopy 2007 - diverticulosis, Allergies Allergy/AdvReac Type Severity Reaction Status Date / Time amoxicillin Allergy Severe HIVES Verified 05/20/23 11:18 Sulfa (Sulfonamide Allergy Severe HIVES Verified 05/20/23 11:18 Antibiotics) Penicillins Allergy Intermediate HIVES Verified 05/20/23 11:18 levofloxacin [From Levaquin] AdvReac Intermediate swelling Verified 05/20/23 11:18 of neck and should area Home Medications Medication Instructions Recorded Confirmed Type amlodipine 5 mg tablet 5 mg PO DAILY 06/09/19 01/17/24 History ascorbic acid (vitamin C) 1,000 mg 1 gm PO DAILY 06/09/19 01/17/24 History tablet aspirin 81 mg tablet,delayed 81 mg PO DAILY 06/09/19 01/17/24 History release (Adult Low Dose Aspirin) atorvastatin 20 mg tablet (Lipitor) 20 mg PO DAILY 06/09/19 01/17/24 History cod liver oil 1 cap PO DAILY 06/09/19 01/17/24 History latanoprost 0.005 % eye drops 1 drops OPB QPM 06/09/19 01/17/24 History lisinopril 30 mg tablet 15 mg PO DAILY 06/09/19 01/17/24 History omeprazole 40 mg capsule,delayed 40 mg PO DAILY 06/09/19 01/17/24 History release tramadol 50 mg tablet 50 mg PO Q6H PRN Pain 06/09/19 01/17/24 History calcium carbonate 500 mg calcium 500 mg PO DAILY 02/13/22 01/17/24 History (1,250 mg) chewable tablet (Calcium 500) timolol maleate 0.5 % eye drops 1 drp OPR QAM 02/13/22 01/17/24 History cholecalciferol (vitamin D3) 50 50 mcg PO DAILY 02/25/22 01/17/24 History mcg (2,000 unit) capsule diclofenac sodium 1 % topical gel 4 g topical QID PRN Other 02/25/22 01/17/24 History fluticasone propionate 50 2 spray intranasal DAILY 02/25/22 01/17/24 History mcg/actuation nasal spray,suspension hydrocodone 5 mg-acetaminophen 325 1 tab PO Q6H PRN Pain 02/25/22 01/17/24 History mg tablet imiquimod 5 % topical cream packet 1 applic topical TID PRN Other 02/25/22 01/17/24 History triamcinolone acetonide 0.1 % 1 applic topical TID PRN Other 02/25/22 01/17/24 History topical cream gabapentin 800 mg tablet 800 mg PO HS 05/20/23 01/17/24 History albuterol sulfate 90 mcg/actuation 2 puff inhalation Q6H PRN 05/28/23 01/17/24 Rx aerosol inhaler (Ventolin HFA) shortness of breath or wheezing #3 Inhalers budesonide 0.25 mg/2 mL suspension 0.25 mg (2 mL) inhalation BID #180 05/28/23 01/17/24 Rx for nebulization mL guaifenesin 600 mg tablet, 600 mg PO BID PRN congestion #180 05/28/23 01/17/24 Rx extended release 12 hr (Mucinex) tabs montelukast 10 mg tablet 10 mg PO DAILY #90 tabs 05/28/23 01/17/24 Rx tiotropium 2.5 mcg-olodaterol 2.5 2 puff inhalation DAILY #3 Inhalers 05/28/23 01/17/24 Rx mcg/actuation mist for inhalation (Stiolto Respimat) apixaban 5 mg tablet (Eliquis) 5 mg PO BID 01/17/24 01/17/24 History clonazepam 0.5 mg tablet 0.5 mg PO HS insomnia or anxiety 01/17/24 01/17/24 History finasteride 5 mg tablet 5 mg PO DAILY 01/17/24 01/17/24 History ipratropium 0.5 mg-albuterol 3 mg 3 ml inhalation UD 01/17/24 01/17/24 History (2.5 mg base)/3 mL nebulization soln levothyroxine 75 mcg tablet 75 mcg PO DAILY 01/17/24 01/17/24 History tamsulosin 0.4 mg capsule 0.4 mg PO DAILY 01/17/24 01/17/24 History Patient History Medical History COPD (chronic obstructive pulmonary disease) Abdominal aortic aneurysm Hypothyroid Hypertension Surgical History H/O sinus surgery Hx of cholecystectomy H/O shoulder surgery Social History Smoking Status: Former smoker Tobacco Type: Cigarettes Age Started Using Tobacco: 14; Age Quit Using Tobacco: 52; packs per day: 1; Second Hand Exposure: Yes; Do You Dip or Chew Tobacco: No; Hx Alcohol Use: Yes Alcohol type: beer Alcohol type Comment: 3-4 max Hx Substance Use: Yes Last Used Substance: Unknown Preferred Language: Togolese Communication Ability: Effective Visual Impairment: No Limitations Hearing Ability: Use of Hearing Aid Silver Service Waiter Required: No Beliefs That Will Affect Care: None marital status: Current Living Situation: Spouse current occupational status: retired Feels Safe at Home: Yes Assistive Devices: None Review of Systems Review of Systems: All systems reviewed & are unremarkable except as noted in HPI & below Physical Exam Constitutional: WD/WN, vitals as above well groomed, cooperative and comfortable Eyes: PERRL, conjunctivae normal, anicteric sclerae ENMT: external ear and nose normal, oropharynx normal Respiratory: normal respiratory effort, lungs clear to auscultation Cardiovascular: RRR, no murmur, no edema Gastrointestinal (Abdomen): normal bowel sounds, soft, nontender, no hepatosplenomegaly Skin: no rashes, warm and dry no jaundice Psychiatric: A+Ox3, euthymic affect Lymphatic: no lymphedema Results & Data Vital Signs (Past 12 Hours) Vital Signs Temp Pulse Pulse Resp BP BP Pulse Ox 01/18/24 03:18 36.7 C 79 18 121/67 97 01/17/24 23:08 105 H 01/17/24 21:51 82 01/17/24 19:46 83 17 161/108 H 95 O2 Del Method O2 Flow Rate 01/18/24 03:18 Nasal Cannula 2 01/17/24 23:08 01/17/24 21:51 01/17/24 19:46 Nasal Cannula 2
[2024-01-18] MEDS ORDERED: SODIUM CHLORIDE 0.9% 250 ML IV PRN (07:17)
[2024-01-18 07:22] LABS: Ferritin 7.9 ng/ml (8-388)
--- NOTE | 2024-01-18 07:23 | Hospitalist Progress Note ---
Date of Service January 18, 2024 Assessment & Plan (1) Intractable back pain: (2) Degenerative joint disease (DJD) of lumbar spine: (3) Spinal stenosis: (4) Abdominal aortic aneurysm (AAA) 3.0 cm to 5.5 cm in diameter in male: (5) SSS (sick sinus syndrome): (6) Ex-smoker: (7) Asthma with COPD (chronic obstructive pulmonary disease): (8) Hypertension: (9) Hypothyroid: Plan Mr. Valles is an 83yoM with PMHx significant for SSS s/p pacemaker placement, HTN, COPD with asthma, Prediabetes, hypothyroidism, PAF, GERD, CKD and known AAA with further enlargement presenting once more with intractable back pain. Patient noted to have acute on chronic anemia and subsequently noted to have multiple gastric ulcers with stigmata of bleed, likely related to patient's reports of melena. Vascular surgery consulted to assess stability of AAA. Ortho consulted to review MRI of lumbar spine and plan for patient's radiculopathic symptoms. Plan to trend hemoglobin and transfuse prn. #Acute on Chronic Microcytic Anemia, c/f GI Bleed #Melena #B12 deficiency #Iron deficiency #Several gastric ulcers Hgb of 7.7 on admission, downtrending Iron 11, Ferritin 7.9 FOBT ordered and pending No recent colonoscopy B12 142 Folate low normal Holding home Eliquis 5mg BID, resume as soon as able x1 B12 IM injection--transition to PO in am Plan to start folate/b-complex supplement when PO GI consulted, appreciate recs -01/17 EGD: large HH, several clean based ulcers in gastric antrum -Protonix 40 mg daily -Carafate 1 g 4 times daily for 4 weeks Repeat upper endoscopy in 8 to 12 weeks Stat type and cross, 1 U PRBC 01/17, follow post transfusion HH Consider Iron supplement (perhaps syrup v pill) when hemoglobin stable Transfuse for hgb <7, or 8 +symptoms #Large hiatal hernia -Denies any symptoms -PPI as above -CTM #Multilevel lumbosacral stenosis, spondylosis and scoliosis #Multilevel disc bulges #DDD of lumbar spine #Intractable Back Pain Pt presenting once more for intractable RIGHT sided back pain Was seen for the same in the ED before being transferred [place] [facility] [place] concerning AAA on January 14, discharged from the ED there on the same day. No relief from home Percocet, tramadol No relief from lidocaine patch he was discharged from [facility] with, not yet followed up with Pain Management to whom he was referred Pain currently down to 5/10 on admission from 08/10 on ED presentation, states urinary symptoms have improved. Notes Hx of BPH Received IV Dilaudid 1mg, IV Dexamethasone 10mg, IV Toradol 15mg in the ED Continue with PO tylenol 1000mg q8h prn for mild pain, and IV Dilaudid 0.5mg q6h for mod-severe pain Continue home gabapentin 800mg qhs Placed on pantoprazole IV push BID in setting of concern for anemia, ?GI bleed (see below), will hold further doses of steroids/NSAIDs Ortho spine consulted, appreciate recs #Infrarenal AAA #Iliac artery aneurysm Noted on CT abd pelvis AAA increased in size to 5.2 x 4.6cm from last US in 2022 showed a 4.5 x 4.5 cm AAA. On 01/14, transferred [place] [facility], seen in the ED there by Vascular Surgery fellow, recommended statin and aspirin; determined not to be an "acute aortic syndrome" -scheduled followup on February 15 with Vascular Surgery at [facility] with Dr Russell Tight blood pressure control in setting of above (see below) Pt no longer smoking, states he quit about 20 years ago Continue statin, aspirin -Vascular consult -Pending CTA abdomen/pelvis #HTN BP 171/81 on admission Likely elevated in setting of pain above Given 1 dose of Labetalol 10mg, BP 130/75 on re-check Holding PO antihypertensives amlodipine 5mg and lisinopril 15mg iso bleed Goal BP <140/90 in setting of AAA above, IV Labetalol 5mg ordered prn with para meters to be given for SBP >140 or DBP >90 Continue to monitor #Paroxysmal atrial fibrillation SSS s/p pacemaker placement Not on rate controlling meds On Eliquis 5mg BID, holding in the setting of anemia above, resume as soon as able Consider decreasing dose to 2.5mg BID if kidney function worsens to 1.5 as pt >80 (see below) #Dehydration #Acute on Chronic Kidney Disease Ketones noted on UA Cr wnl but elevated at 1.39, down from 1.41 a few days ago Patient states he has not been able to eat or drink for a few days NSS x2 bags Continue to monitor with AM labs #Hyponatremia Sodium of 132 NSS as above Monitor with AM labs #Hyperglycemia #Prediabetes Glucose elevated A1C 6.3% Trend Am glucose #COPD/Asthma Follows with [facility] pulmonology Does not use oxygen at home, though they note he should Consider CT chest Oxygen supplementation as needed, wean as tolerated Continue home inhalers Continue to monitor #GERD Holding home omeprazole Continue with pantoprazole above #Insomnia On klonipin prn at home, holding as pt on IV narcotics Also on gabapentin 800mg qhs which can be sedating Melatonin prn ordered, consider trazodone qhs. Resume klonipin as able Continue other home meds as ordered DVT prophylaxis: Holding eliquis in setting of anemia/possible GI bleed, SCDs ordered CODE STATUS: Full code Diet: HH/DMII Dispo: Med/Surg with tele Admission and Anticipated Discharge Date Admission Date: January 17, 2024 Subjective Patient evaluated this am--agreed to blood transfusion Patient underwent scope for bleed--noted to have multiple ulcers Reviewed post scope and denies any acute concerns at time of visit Reports radiculopathic pain down right leg from buttock, denies any/much relief with gabapentin Physical Exam 2 Constitutional: WD/WN, vitals as above Cardiovascular: RRR, no murmur, no edema Chest (Breasts): normal inspection/palpation of breasts Gastrointestinal (Abdomen): normal bowel sounds, soft, nontender, no hepatosplenomegaly Results & Data Results & Data Vital Signs (Past 12 Hours) Vital Signs Temp Pulse Pulse Resp BP BP Pulse Ox 01/18/24 05:55 67 01/18/24 03:18 36.7 C 79 18 121/67 97 01/17/24 23:08 105 H 01/17/24 21:51 82 01/17/24 19:46 83 17 161/108 H 95 O2 Del Method O2 Flow Rate 01/18/24 05:55 01/18/24 03:18 Nasal Cannula 2 01/17/24 23:08 01/17/24 21:51 01/17/24 19:46 Nasal Cannula 2 Laboratory Results Short CBC 01/17/24 01/18/24 01/18/24 Range/Units 07:24 05:34 07:00 WBC 8.10 7.89 (4.8-10.8) K/ul Hgb 7.7 L 6.3 L* 6.5 L* (14.0-18.0) g/dl Hct 23.9 L 20.8 L* 20.5 L* (42.0-52.0) % Plt Count 284 245 (130-400) K/uL BMP 01/17/24 01/18/24 07:24 05:34 Sodium 132 L 132 L Potassium 4.5 4.4 Chloride 100 103 Carbon Dioxide 26 23 BUN 17 27 H Creatinine 1.39 1.50 H Glucose 113 H 101 H Calcium 9.9 8.5 L Liver Function 01/17/24 01/18/24 Range/Units 07:24 05:34 Total Bilirubin 0.7 0.4 (0.2-1.0) mg/dl AST 28 26 (13-39) U/L ALT 12 12 (7-52) U/L Alkaline Phosphatase 43 35 (34-104) U/L Albumin 4.4 3.6 (3.4-5.0) gm/dl Urine 01/17/24 Range/Units 09:44 Urine Color Yellow Urine Appearance Clear (Clear) Urine pH 6.0 (4.5-7.5) Ur Specific [place] 1.022 (1.000-1.030) Urine Protein Negative (Negative) Urine Glucose (UA) Negative (Negative) Medications Administered Home Medications Medication Instructions Recorded Confirmed Last Taken amlodipine 5 mg tablet 5 mg PO DAILY 06/09/19 01/17/24 Unknown ascorbic acid (vitamin C) 1,000 mg 1 gm PO DAILY 06/09/19 01/17/24 Unknown tablet aspirin 81 mg tablet,delayed 81 mg PO DAILY 06/09/19 01/17/24 Unknown release (Adult Low Dose Aspirin) atorvastatin 20 mg tablet (Lipitor) 20 mg PO DAILY 06/09/19 01/17/24 Unknown cod liver oil 1 cap PO DAILY 06/09/19 01/17/24 Unknown latanoprost 0.005 % eye drops 1 drops OPB QPM 06/09/19 01/17/24 Unknown lisinopril 30 mg tablet 15 mg PO DAILY 06/09/19 01/17/24 Unknown omeprazole 40 mg capsule,delayed 40 mg PO DAILY 06/09/19 01/17/24 Unknown release tramadol 50 mg tablet 50 mg PO Q6H PRN Pain 06/09/19 01/17/24 Unknown calcium carbonate 500 mg calcium 500 mg PO DAILY 02/13/22 01/17/24 Unknown (1,250 mg) chewable tablet (Calcium 500) timolol maleate 0.5 % eye drops 1 drp OPR QAM 02/13/22 01/17/24 Unknown cholecalciferol (vitamin D3) 50 50 mcg PO DAILY 02/25/22 01/17/24 Unknown mcg (2,000 unit) capsule diclofenac sodium 1 % topical gel 4 g topical QID PRN Other 02/25/22 01/17/24 Unknown fluticasone propionate 50 2 spray intranasal DAILY 02/25/22 01/17/24 Unknown mcg/actuation nasal spray,suspension hydrocodone 5 mg-acetaminophen 325 1 tab PO Q6H PRN Pain 02/25/22 01/17/24 Unknown mg tablet imiquimod 5 % topical cream packet 1 applic topical TID PRN Other 02/25/22 01/17/24 Unknown triamcinolone acetonide 0.1 % 1 applic topical TID PRN Other 02/25/22 01/17/24 Unknown topical cream gabapentin 800 mg tablet 800 mg PO HS 05/20/23 01/17/24 Unknown albuterol sulfate 90 mcg/actuation 2 puff inhalation Q6H PRN 05/28/23 01/17/24 Unknown aerosol inhaler (Ventolin HFA) shortness of breath or wheezing #3 Inhalers budesonide 0.25 mg/2 mL suspension 0.25 mg (2 mL) inhalation BID #180 05/28/23 01/17/24 Unknown for nebulization mL guaifenesin 600 mg tablet, 600 mg PO BID PRN congestion #180 05/28/23 01/17/24 Unknown extended release 12 hr (Mucinex) tabs montelukast 10 mg tablet 10 mg PO DAILY #90 tabs 05/28/23 01/17/24 Unknown tiotropium 2.5 mcg-olodaterol 2.5 2 puff inhalation DAILY #3 Inhalers 05/28/23 01/17/24 Unknown mcg/actuation mist for inhalation (Stiolto Respimat) apixaban 5 mg tablet (Eliquis) 5 mg PO BID 01/17/24 01/17/24 Unknown clonazepam 0.5 mg tablet 0.5 mg PO HS insomnia or anxiety 01/17/24 01/17/24 Unknown finasteride 5 mg tablet 5 mg PO DAILY 01/17/24 01/17/24 Unknown ipratropium 0.5 mg-albuterol 3 mg 3 ml inhalation UD 01/17/24 01/17/24 Unknown (2.5 mg base)/3 mL nebulization soln levothyroxine 75 mcg tablet 75 mcg PO DAILY 01/17/24 01/17/24 Unknown tamsulosin 0.4 mg capsule 0.4 mg PO DAILY 01/17/24 01/17/24 Unknown Active Medications Generic Name Dose Route Start Last Admin Trade Name Freq PRN Reason Stop Dose Admin Docusate Sodium 100 mg 01/17/24 21:00 01/17/24 21:35 Docusate Sodium 100 Mg Cap PO 02/16/24 20:59 Not Given BID MIRI Gabapentin 800 mg 01/17/24 21:00 01/17/24 22:38 Gabapentin 800 Mg Tab PO 02/16/24 20:59 800 mg HS MIRI Administration Hydromorphone HCl 0.5 mg 01/17/24 13:24 01/17/24 22:38 Hydromorphone Inj 0.5 Mg/0.5 Ml Syr IV 01/31/24 13:02 0.5 mg Q6H PRN Administration Mod-Sev Pain (Scale 4-10) Sodium Chloride 1,000 mls @ 80 mls/hr 01/17/24 13:30 01/18/24 02:53 Nss IV 01/18/24 14:29 80 mls/hr .[id number] MIRI Administration Latanoprost 1 drops 01/17/24 21:00 01/17/24 22:37 Latanoprost 0.005% Op Soln 2.5 Ml Btl OPB 02/16/24 20:59 1 drops QPM MIRI Administration
[2024-01-18 07:29] LABS: Folate (Folic Acid),Ser orPlas 9.3 ng/ml (>5.38)
[2024-01-18 07:30] LABS: Hematocrit (blood only) 20.5 % (42.0-52.0); Hemoglobin 6.5 g/dl (14.0-18.0)
[2024-01-18] MEDS: PANTOprazole 80 MG in DEXTROSE 5% 100 ML IV ONE (07:46)
[2024-01-18] MEDS ORDERED: dexAMETHasone 8 MG in SYRINGE 0 ML IV SCH (08:00)
[2024-01-18] MEDS: PANTOprazole 40 MG in DEXTROSE 5% MINI-B 100 ML IV SCH (08:33)
[2024-01-18] MEDS ORDERED: amLODIPine BESYLATE 5 MG TAB PO SCH (09:00)
[2024-01-18] MEDS ORDERED: lisinopril 5 MG TAB PO SCH (09:00)
--- NOTE | 2024-01-18 09:33 | Orthopedic Consultation ---
Date of Consultation January 18, 2024 Assessment & Plan (1) Spinal stenosis: Assessment right leg pain. Plan at this time and opportunity to reviewed an MRI of the lumbar spine performed 01/17/2024. It does demonstrate age-appropriate multilevel degenerative changes. There is evidence of components of stenosis but not severe in nature. His clinical presentation is not consistent with neurogenic claudication. This may be more muscular skeletal in nature with trochanteric bursitis and IT band irritation. Certainly in light of his multiple medical issues are not recommending any surgical interventions from a orthopedic spine standpoint. Recommend physical therapy evaluation with interventional pain management. History of Present Illness Reason for Consultation: Back and right leg pain Attending Physician: Daphnie Saleh MD History of Present Illness This is a very pleasant 83-year-old male that states he has had a history approximately 3 weeks of predominantly right leg discomfort. He describes it involving the right upper thigh extending down the lateral thigh and sometimes below the knee. Left lower extremity seems to be asymptomatic. He denies any trauma fall or event. He states that he has to shift several times at the evening to alleviate his pain. He states standing and moving around sometimes helps it. He does admit to not being able to ambulate recently secondary to multiple medical issues. This morning he is in bed. He states the pain is present but not limiting. Allergies Allergy/AdvReac Type Severity Reaction Status Date / Time amoxicillin Allergy Severe HIVES Verified 05/20/23 11:18 Sulfa (Sulfonamide Allergy Severe HIVES Verified 05/20/23 11:18 Antibiotics) Penicillins Allergy Intermediate HIVES Verified 05/20/23 11:18 levofloxacin [From Levaquin] AdvReac Intermediate swelling Verified 05/20/23 11:18 of neck and should area Home Medications Medication Instructions Recorded Confirmed Type amlodipine 5 mg tablet 5 mg PO DAILY 06/09/19 01/17/24 History ascorbic acid (vitamin C) 1,000 mg 1 gm PO DAILY 06/09/19 01/17/24 History tablet aspirin 81 mg tablet,delayed 81 mg PO DAILY 06/09/19 01/17/24 History release (Adult Low Dose Aspirin) atorvastatin 20 mg tablet (Lipitor) 20 mg PO DAILY 06/09/19 01/17/24 History cod liver oil 1 cap PO DAILY 06/09/19 01/17/24 History latanoprost 0.005 % eye drops 1 drops OPB QPM 06/09/19 01/17/24 History lisinopril 30 mg tablet 15 mg PO DAILY 06/09/19 01/17/24 History omeprazole 40 mg capsule,delayed 40 mg PO DAILY 06/09/19 01/17/24 History release tramadol 50 mg tablet 50 mg PO Q6H PRN Pain 06/09/19 01/17/24 History calcium carbonate 500 mg calcium 500 mg PO DAILY 02/13/22 01/17/24 History (1,250 mg) chewable tablet (Calcium 500) timolol maleate 0.5 % eye drops 1 drp OPR QAM 02/13/22 01/17/24 History cholecalciferol (vitamin D3) 50 50 mcg PO DAILY 02/25/22 01/17/24 History mcg (2,000 unit) capsule diclofenac sodium 1 % topical gel 4 g topical QID PRN Other 02/25/22 01/17/24 History fluticasone propionate 50 2 spray intranasal DAILY 02/25/22 01/17/24 History mcg/actuation nasal spray,suspension hydrocodone 5 mg-acetaminophen 325 1 tab PO Q6H PRN Pain 02/25/22 01/17/24 History mg tablet imiquimod 5 % topical cream packet 1 applic topical TID PRN Other 02/25/22 01/17/24 History triamcinolone acetonide 0.1 % 1 applic topical TID PRN Other 02/25/22 01/17/24 History topical cream gabapentin 800 mg tablet 800 mg PO HS 05/20/23 01/17/24 History albuterol sulfate 90 mcg/actuation 2 puff inhalation Q6H PRN 05/28/23 01/17/24 Rx aerosol inhaler (Ventolin HFA) shortness of breath or wheezing #3 Inhalers budesonide 0.25 mg/2 mL suspension 0.25 mg (2 mL) inhalation BID #180 05/28/23 01/17/24 Rx for nebulization mL guaifenesin 600 mg tablet, 600 mg PO BID PRN congestion #180 05/28/23 01/17/24 Rx extended release 12 hr (Mucinex) tabs montelukast 10 mg tablet 10 mg PO DAILY #90 tabs 05/28/23 01/17/24 Rx tiotropium 2.5 mcg-olodaterol 2.5 2 puff inhalation DAILY #3 Inhalers 05/28/23 01/17/24 Rx mcg/actuation mist for inhalation (Stiolto Respimat) apixaban 5 mg tablet (Eliquis) 5 mg PO BID 01/17/24 01/17/24 History clonazepam 0.5 mg tablet 0.5 mg PO HS insomnia or anxiety 01/17/24 01/17/24 History finasteride 5 mg tablet 5 mg PO DAILY 01/17/24 01/17/24 History ipratropium 0.5 mg-albuterol 3 mg 3 ml inhalation UD 01/17/24 01/17/24 History (2.5 mg base)/3 mL nebulization soln levothyroxine 75 mcg tablet 75 mcg PO DAILY 01/17/24 01/17/24 History tamsulosin 0.4 mg capsule 0.4 mg PO DAILY 01/17/24 01/17/24 History Patient History Medical History COPD (chronic obstructive pulmonary disease) Abdominal aortic aneurysm Hypothyroid Hypertension Surgical History H/O sinus surgery Hx of cholecystectomy H/O shoulder surgery Social History Smoking Status: Former smoker Tobacco Type: Cigarettes Age Started Using Tobacco: 14; Age Quit Using Tobacco: 52; packs per day: 1; Second Hand Exposure: Yes; Do You Dip or Chew Tobacco: No; Hx Alcohol Use: Yes Alcohol type: beer Alcohol type Comment: 3-4 max Hx Substance Use: Yes Last Used Substance: Unknown Preferred Language: Azeri Communication Ability: Effective Visual Impairment: No Limitations Hearing Ability: Use of Hearing Aid Bulk Plant Agent Required: No Beliefs That Will Affect Care: None marital status: Current Living Situation: Spouse current occupational status: retired Feels Safe at Home: Yes Assistive Devices: None Physical Exam Physical Exam: On exam he is excellent strength detailed testing of bilateral extremities with plantarflexion dorsiflexion quadriceps. Sensory is symmetric and intact intact to cold and light touch. Negative logroll. He is marked tenderness palpation of the right IT band particularly in the proximal margins. He has no significant back pain palpation. He has no gross tension signs. Results & Data Vital Signs (Past 12 Hours) Vital Signs Temp Pulse Pulse Resp BP BP Pulse Ox 01/18/24 09:10 36.6 C 76 20 129/71 96 01/18/24 08:52 36.8 C 95 H 20 114/66 95 01/18/24 08:04 01/18/24 07:50 36.6 C 73 18 111/67 94 01/18/24 05:55 67 01/18/24 03:18 36.7 C 79 18 121/67 97 01/17/24 23:08 105 H 01/17/24 21:51 82 O2 Del Method O2 Flow Rate 01/18/24 09:10 01/18/24 08:52 2 01/18/24 08:04 Nasal Cannula 2 01/18/24 07:50 Nasal Cannula 2.5 01/18/24 05:55 01/18/24 03:18 Nasal Cannula 2 01/17/24 23:08 01/17/24 21:51
--- NOTE | 2024-01-18 09:45 | Anesthesiology Consultation ---
Date of Service January 18, 2024 Assessment & Plan Chart Review Chart Review: Acceptable Risk for Surgery and Patient NOT seen in Pre Admission Testing Consults Requested none History Surgery Operation Date: 01/18/24 16:45 Proposed Procedures p Esophagogastroduodenoscopy Dr Alex Johnson, DO Height/Weight Height: 5 ft 6 in Weight: 82.3 kg Allergies Allergy/AdvReac Type Severity Reaction Status Date / Time amoxicillin Allergy Severe HIVES Verified 05/20/23 11:18 Sulfa (Sulfonamide Allergy Severe HIVES Verified 05/20/23 11:18 Antibiotics) Penicillins Allergy Intermediate HIVES Verified 05/20/23 11:18 levofloxacin [From Levaquin] AdvReac Intermediate swelling Verified 05/20/23 11:18 of neck and should area Medications Home Medications Medication Instructions Recorded Confirmed Last Taken amlodipine 5 mg tablet 5 mg PO DAILY 06/09/19 01/17/24 Unknown ascorbic acid (vitamin C) 1,000 mg 1 gm PO DAILY 06/09/19 01/17/24 Unknown tablet aspirin 81 mg tablet,delayed 81 mg PO DAILY 06/09/19 01/17/24 Unknown release (Adult Low Dose Aspirin) atorvastatin 20 mg tablet (Lipitor) 20 mg PO DAILY 06/09/19 01/17/24 Unknown cod liver oil 1 cap PO DAILY 06/09/19 01/17/24 Unknown latanoprost 0.005 % eye drops 1 drops OPB QPM 06/09/19 01/17/24 Unknown lisinopril 30 mg tablet 15 mg PO DAILY 06/09/19 01/17/24 Unknown omeprazole 40 mg capsule,delayed 40 mg PO DAILY 06/09/19 01/17/24 Unknown release tramadol 50 mg tablet 50 mg PO Q6H PRN Pain 06/09/19 01/17/24 Unknown calcium carbonate 500 mg calcium 500 mg PO DAILY 02/13/22 01/17/24 Unknown (1,250 mg) chewable tablet (Calcium 500) timolol maleate 0.5 % eye drops 1 drp OPR QAM 02/13/22 01/17/24 Unknown cholecalciferol (vitamin D3) 50 50 mcg PO DAILY 02/25/22 01/17/24 Unknown mcg (2,000 unit) capsule diclofenac sodium 1 % topical gel 4 g topical QID PRN Other 02/25/22 01/17/24 Unknown fluticasone propionate 50 2 spray intranasal DAILY 02/25/22 01/17/24 Unknown mcg/actuation nasal spray,suspension hydrocodone 5 mg-acetaminophen 325 1 tab PO Q6H PRN Pain 02/25/22 01/17/24 Unknown mg tablet imiquimod 5 % topical cream packet 1 applic topical TID PRN Other 02/25/22 01/17/24 Unknown triamcinolone acetonide 0.1 % 1 applic topical TID PRN Other 02/25/22 01/17/24 Unknown topical cream gabapentin 800 mg tablet 800 mg PO HS 05/20/23 01/17/24 Unknown albuterol sulfate 90 mcg/actuation 2 puff inhalation Q6H PRN 05/28/23 01/17/24 Unknown aerosol inhaler (Ventolin HFA) shortness of breath or wheezing #3 Inhalers budesonide 0.25 mg/2 mL suspension 0.25 mg (2 mL) inhalation BID #180 05/28/23 01/17/24 Unknown for nebulization mL guaifenesin 600 mg tablet, 600 mg PO BID PRN congestion #180 05/28/23 01/17/24 Unknown extended release 12 hr (Mucinex) tabs montelukast 10 mg tablet 10 mg PO DAILY #90 tabs 05/28/23 01/17/24 Unknown tiotropium 2.5 mcg-olodaterol 2.5 2 puff inhalation DAILY #3 Inhalers 05/28/23 01/17/24 Unknown mcg/actuation mist for inhalation (Stiolto Respimat) apixaban 5 mg tablet (Eliquis) 5 mg PO BID 01/17/24 01/17/24 Unknown clonazepam 0.5 mg tablet 0.5 mg PO HS insomnia or anxiety 01/17/24 01/17/24 Unknown finasteride 5 mg tablet 5 mg PO DAILY 01/17/24 01/17/24 Unknown ipratropium 0.5 mg-albuterol 3 mg 3 ml inhalation UD 01/17/24 01/17/24 Unknown (2.5 mg base)/3 mL nebulization soln levothyroxine 75 mcg tablet 75 mcg PO DAILY 01/17/24 01/17/24 Unknown tamsulosin 0.4 mg capsule 0.4 mg PO DAILY 01/17/24 01/17/24 Unknown Active Medications Generic Name Dose Route Start Last Admin Trade Name Freq PRN Reason Stop Dose Admin Docusate Sodium 100 mg 01/17/24 21:00 01/17/24 21:35 Docusate Sodium 100 Mg Cap PO 02/16/24 20:59 Not Given BID MIRI Gabapentin 800 mg 01/17/24 21:00 01/17/24 22:38 Gabapentin 800 Mg Tab PO 02/16/24 20:59 800 mg HS MIRI Administration Hydromorphone HCl 0.5 mg 01/17/24 13:24 01/17/24 22:38 Hydromorphone Inj 0.5 Mg/0.5 Ml Syr IV 01/31/24 13:02 0.5 mg Q6H PRN Administration Mod-Sev Pain (Scale 4-10) Sodium Chloride 1,000 mls @ 80 mls/hr 01/17/24 13:30 01/18/24 08:57 Nss IV 01/18/24 14:29 0 mls/hr .[id number] MIRI Infusion Pantoprazole Sodium 40 mg/ 100 mls @ 20 mls/hr 01/18/24 07:35 01/18/24 08:33 Dextrose IV 02/17/24 07:34 8 mg/hr Q5H MIRI 20 mls/hr Administration 8 MG/HR Latanoprost 1 drops 01/17/24 21:00 01/17/24 22:37 Latanoprost 0.005% Op Soln 2.5 Ml Btl OPB 02/16/24 20:59 1 drops QPM MIRI Administration NPO Date Last Intake of Fluids: 01/18/24 Time Last Intake of Fluids: 08:00 Date Last Intake of Solids: 01/17/24 Time Last Intake of Solids: 18:00 Past Medical History Medical History COPD (chronic obstructive pulmonary disease) Abdominal aortic aneurysm Hypothyroid Hypertension Past Surgical History Surgical History H/O sinus surgery Hx of cholecystectomy H/O shoulder surgery Social History Smoking Status: Former smoker Do You Dip or Chew Tobacco: No Hx Alcohol Use: Yes Alcohol type: beer alcohol intake frequency: holidays/special occasions only Hx Substance Use: Yes substance use type: marijuana Last Used Substance: Unknown Physical Exam Vital Signs Last Vital Signs Temp 36.6 C 01/18/24 09:10 Pulse 65 01/18/24 09:38 Resp 20 01/18/24 09:38 BP 121/65 01/18/24 09:38 Pulse Ox 97 01/18/24 09:38 O2 Del Method Room Air 01/18/24 09:38 O2 Flow Rate 2 01/18/24 08:52 Constitutional WD/WN, vitals as above well groomed, cooperative and comfortable Eyes PERRL, conjunctivae normal, anicteric sclerae ENMT external ear and nose normal, oropharynx normal Respiratory normal respiratory effort, lungs clear to auscultation Cardiovascular RRR, no murmur, no edema Gastrointestinal (Abdomen) normal bowel sounds, soft, nontender, no hepatosplenomegaly Skin no rashes, warm and dry no jaundice Psychiatric A+Ox3, euthymic affect Lymphatic no lymphedema Testing Laboratory Results 01/18/24 07:00 01/18/24 05:34 PT 12.4 Seconds (9.0-12.0) H 01/17/24 07:24 INR 1.1 (0.9-1.1) 01/17/24 07:24 APTT 28 Seconds (21-31) 01/17/24 07:24 Hemoglobin A1c 6.3 % (4.5-5.6) H 01/18/24 05:34 Urine Color Yellow 01/17/24 09:44 Urine Appearance Clear (Clear) 01/17/24 09:44 Urine pH 6.0 (4.5-7.5) 01/17/24 09:44 Ur Specific [place] 1.022 (1.000-1.030) 01/17/24 09:44 Urine Protein Negative (Negative) 01/17/24 09:44 Urine Glucose (UA) Negative (Negative) 01/17/24 09:44 Urine Ketones Trace (Negative) H 01/17/24 09:44 Urine Nitrite Negative (Negative) 01/17/24 09:44 Ur Leukocyte Esterase Negative (Negative) 01/17/24 09:44 Blood Type O Positive 01/18/24 07:32 Antibody Screen NEGATIVE 01/18/24 07:32
--- NOTE | 2024-01-18 10:04 | Communication Note ---
Date of Service: January 18, 2024 The patient underwent upper endoscopy today. He was found to have a large hiatal hernia, there were also several clean-based ulcers in the gastric antrum that could have been associated with the patient's melena. Given the drop in patient's hemoglobin and hematocrit I would recommend a consultation with vascular surgery given the patient's large aortic aneurysm. Finally we will make arrangements for surveillance upper endoscopy in 8 to 12 weeks to ensure that the gastric ulcer is healed. Recommendations Protonix 40 mg daily Carafate 1 g 4 times daily for 4 weeks Repeat upper endoscopy in 8 to 12 weeks Recommend a vascular surgery consultation
--- NOTE | 2024-01-18 10:08 | GI REPORT ---
Patient Name: Colt Valles Procedure Date: 01/18/2024 9:25 AM Date of : 1940 Admit Type: Inpatient Age: 83 Gender: Male Attending MD: Liset Johnson DO, Procedure: Upper GI endoscopy Providers: Liset Johnson DO Referring MD: Soraya Dumont Indications: Melena Medicines: Monitored Anesthesia Care Complications: No immediate complications. Estimated blood loss: Minimal. Estimated Blood Loss: Estimated blood loss was minimal. Procedure: Pre-Anesthesia Assessment: - Prior to the procedure, a History and Physical was performed, and patient medications, allergies and sensitivities were reviewed. The patient's tolerance of previous anesthesia was reviewed. - The risks and benefits of the procedure and the sedation options and risks were discussed with the patient. All questions were answered and informed consent was obtained. - Patient identification and proposed procedure were verified prior to the procedure by the physician, the nurse and the storeroom attendant. The procedure was verified in the procedure room. - Pre-procedure physical examination revealed no contraindications to sedation. - ASA Grade Assessment: III - A patient with severe systemic disease. - After reviewing the risks and benefits, the patient was deemed in satisfactory condition to undergo the procedure. - The anesthesia plan was to use monitored anesthesia care (MAC). - Immediately prior to administration of medications, the patient was re-assessed for adequacy to receive sedatives. - The heart rate, respiratory rate, oxygen saturations, blood pressure, adequacy of pulmonary ventilation, and response to care were monitored throughout the procedure. - The physical status of the patient was re-assessed after the procedure. After obtaining informed consent, the endoscope was passed under direct vision. Throughout the procedure, the patient's blood pressure, pulse, and oxygen saturations were monitored continuously. The Colonoscope was introduced through the mouth, and advanced to the fourth part of duodenum. The upper GI endoscopy was accomplished without difficulty. The patient tolerated the procedure well. Findings: The examined esophagus was normal. A large hiatal hernia was found. The proximal extent of the gastric folds (end of tubular esophagus) was 32 cm from the incisors. The hiatal narrowing was 39 cm from the incisors. The Z-line was 32 cm from the incisors. Three non-obstructing non-bleeding gastric ulcers with no stigmata of bleeding were found in the gastric antrum. The largest lesion was 8 mm in largest dimension. The examined duodenum was normal. Impression: - Normal esophagus. - Large hiatal hernia. - Non-obstructing non-bleeding gastric ulcers with no stigmata of bleeding. NSAID induced etiology. - Normal examined duodenum. Recommendation: - [facility] care. - Use Protonix (pantoprazole) 40 mg PO daily. - Use sucralfate tablets 1 gram PO QID for 1 month. - Repeat upper endoscopy in 3 months to check healing. - Highly recommend further evaluation of the patient's enlargement Liset Johnson D.O. Liset Johnson, DO 01/18/2024 10:08:09 AM This report has been signed electronically. Note Initiated On: 01/18/2024 9:25 AM Number of Addenda: 0 I attest to the content of the Intraoperative Record and orders documented therein, exceptions below {[id number]}
[2024-01-18] MEDS: SUCRALFATE 1 GM/10 ML UDC PO SCH (11:30)
[2024-01-18] MEDS: PANTOprazole 40 MG TAB PO SCH (11:30)
[2024-01-18] MEDS: UMECLIDINIUM/VILANTEROL 62.5/25MCG 7 PUFFS/INHALER INH SCH (11:31)
[2024-01-18] MEDS: POLYETHYLENE (MIRALAX) 17 GM PACK PO SCH (11:31)
[2024-01-18] MEDS: FLUTICASONE PROPIONATE NA SPR 16 GM BTL NAE SCH (11:32)
[2024-01-18] MEDS: CALCIUM CARBONATE 500 MG CHEWABLE TAB PO SCH (11:33)
[2024-01-18] MEDS: TAMSULOSIN HCL 0.4 MG CAP PO SCH (11:33)
[2024-01-18] MEDS: CHOLECALCIFEROL 25 MCG (1000 UNITS) TAB PO SCH (11:34)
[2024-01-18] MEDS: FINASTERIDE 5 MG TAB PO SCH (11:35)
[2024-01-18] MEDS: TIMOLOL MALEATE 0.5% OP SOLN 5 ML BTL OPR SCH (11:35)
[2024-01-18] MEDS: ATORVASTATIN 20 MG TAB PO SCH (11:36)
[2024-01-18] MEDS: ASPIRIN 81 MG ECTAB PO SCH (11:36)
[2024-01-18] MEDS: LEVOTHYROXINE SODIUM 75 MCG TABLET PO SCH (11:37)
[2024-01-18] MEDS: CYANOCOBALAMIN 1000 MCG/ML VIAL IM SCH (11:37)
[2024-01-18] MEDS: MONTELUKAST SODIUM 10 MG TABLET PO SCH (11:38)
[2024-01-18] MEDS: oxyCODONE/ACETAMINOPHEN 5mg/325mg TAB PO PRN (12:22)
[2024-01-18] MEDS: OPTIRAY 320 125ml IV ONE (14:17)
--- NOTE | 2024-01-18 14:25 | Anesthesiology Progress Note ---
Date of Service January 18, 2024 Anesthesia Post Procedure Vital Signs Vital Signs: Temp Pulse Pulse Pulse Resp BP BP 01/18/24 11:36 36.7 C 62 18 124/75 01/18/24 10:39 61 18 126/81 01/18/24 10:24 65 16 149/77 H 01/18/24 10:09 65 65 16 128/76 01/18/24 09:57 36.3 C L 65 18 122/76 01/18/24 09:38 65 20 121/65 01/18/24 09:30 65 20 121/65 01/18/24 09:10 36.6 C 76 20 129/71 01/18/24 08:52 36.8 C 95 H 20 114/66 01/18/24 08:04 01/18/24 07:50 36.6 C 73 18 111/67 01/18/24 05:55 67 01/18/24 03:18 36.7 C 79 18 121/67 01/17/24 23:08 105 H 01/17/24 21:51 82 01/17/24 19:46 83 17 161/108 H 01/17/24 19:00 96 H 19 01/17/24 16:02 87 20 BP Pulse Ox O2 Del Method O2 Flow Rate 01/18/24 11:36 96 Nasal Cannula 2 01/18/24 10:39 96 Room Air 01/18/24 10:24 93 Room Air 01/18/24 10:09 98 Room Air 01/18/24 09:57 100 01/18/24 09:38 97 Room Air 01/18/24 09:30 97 01/18/24 09:10 96 01/18/24 08:52 95 2 01/18/24 08:04 Nasal Cannula 2 01/18/24 07:50 94 Nasal Cannula 2.5 01/18/24 05:55 01/18/24 03:18 97 Nasal Cannula 2 01/17/24 23:08 01/17/24 21:51 01/17/24 19:46 95 Nasal Cannula 2 01/17/24 19:00 98 Room Air 01/17/24 16:02 121/71 96 Nasal Cannula 2 Pain Intensity Back: Pain Intensity: 6 Transfer of Care Handoff Completed per policy Notes Mental Status: alert / awake / arousable Patient Amnestic to Procedure: Yes Nausea / Vomiting: adequately controlled Pain: adequately controlled Airway Patency, RR, SpO2: stable & adequate BP & HR: stable & adequate Hydration State: stable & adequate Anesthetic Complications: no major complications apparent and Pt Satisfied with anesthetic care
--- NOTE | 2024-01-18 14:55 | CT Scan Report ---
CT angio abd pelvis wo/w con CLINICAL HISTORY: aaa with back pain TECHNIQUE: Multidetector row helical CT of the abdomen and pelvis was performed, following intravenou s administration of iodinated contrast. No oral contrast was administered. Automated dose lowering te chniques and/or adjustment according to patient size were utilized for this exam. Coronal and sagitta l reformations were obtained. MIP and 3D volume rendered reconstructions were obtained. CT DOSE: 2214.89 mGy.cm Comparison: Comparison is made to CT abdomen pelvis 01/15/2024 FINDINGS: Lower chest: Interstitial thickening is seen. Liver: Unremarkable. No focal lesions are seen. Gallbladder and biliary tree: Patient is status post cholecystectomy. Physiologic prominence of the b iliary ducts is noted. Pancreas: Unremarkable, no focal lesions. Spleen: Unremarkable. Adrenals: Unremarkable. Kidneys and ureters: Subcentimeter hypodensities are too small to characterize. Bladder: Diffuse homogeneous wall thickening is seen. Reproductive organs: Prostatic calcifications are seen which may represent prior hemorrhage or granul omatous disease. Meniscectomy clips are seen. Bowel: Diverticulosis is seen without diverticulitis. The appendix is normal. There is a moderate hia byron hernia. Lymph nodes Retroperitoneal: Unremarkable. Pelvic: Unremarkable. Mesenteric: Unremarkable. Peritoneum: Normal. Abdominal wall: A fat-containing umbilical hernia is seen. Right fat-containing inguinal hernia is se en. Bones: Unremarkable. CT angiogram: Infrarenal aneurysm measures up to 48 mm. There is a 47 mm rightward oriented aortic an eurysm as well. 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 There is evidence of scattered atherosclerotic ca lcifications of the abdominal aorta and its major branches. The origins of the celiac axis, superior mesenteric, inferior mesenteric and bilateral renal arteries are patent. IMPRESSION: 1. Infrarenal aortic aneurysm without evidence of dissection or acute abnormality. Additional findin gs as above. 2. Diverticulosis without diverticulitis. ACT 112: Negative or not required by law. Electronically signed by: Kevin Lozada M.D. 01/18/2024 2:54 PM
[2024-01-18 15:13] LABS: Hematocrit (blood only) 24.5 % (42.0-52.0); Hemoglobin 7.9 g/dl (14.0-18.0)
--- NOTE | 2024-01-18 15:14 | Communication Note ---
Date of Service: January 18, 2024 Official consult to follow CTA showed a 4.8cm AAA which is not ruptured and has no stranding. This is not significantly different than his MRI in 2019 which showed an AAA of 5.4. Would continue to workup his blood loss anemia. No AAA repair is indicated at this time. His right sided pain is most likely not related to this AAA.
[2024-01-19 06:36] LABS: BUN Creatinine Ratio 16.2 (10-20); Calcium 8.3 mg/dl (8.6-10.3); Creatinine Clr Calc Pharmacy 40.9 ml/min; Est GFR (African American) 53.3 ml/min; Magnesium 1.7 mg/dl (1.7-2.4); Phosphorus 3.3 mg/dl (2.5-4.9); Potassium 4.2 mmol/L (3.5-5.1)
[2024-01-19 06:44] LABS: Hematocrit (blood only) 25.2 % (42.0-52.0); Hemoglobin 7.8 g/dl (14.0-18.0); Mean Corpuscular Hemoglobin 26.1 pg (25.0-34.0); Mean Corpuscular Volume 84.3 fL (80.0-100.0); Mean Platelet Volume 10.2 fL (9.4-12.4); Platelet Count 234 K/uL (130-400); RDW Coefficient of Variation 15.6 % (11.5-14.5); RDW Standard Deviation 47.2 fL (36.4-46.3); Red Blood Count 2.99 M/uL (4.70-6.10); White Blood Count 7.06 K/ul (4.8-10.8)
[2024-01-19] MEDS: PROPOFOL IV EMULSION 10 MG/ML 20 ML VIAL IV ONE (06:52)
[2024-01-19] MEDS: KETAMINE HCL 10MG/ML SYR ONE (06:52)
[2024-01-19] MEDS: LIDOCAINE 2% 2 ML VIAL/AMP(20MG/ML) INFIL ONE (06:52)
[2024-01-19] MEDS: FOLIC ACID 1 MG TAB PO SCH (07:59)
[2024-01-19] MEDS: CYANOCOBALAMIN (B-12) 500 MCG TABLET PO SCH (08:01)
--- NOTE | 2024-01-19 08:08 | Hospitalist Progress Note ---
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 Valles is an 83yoM with PMHx significant for SSS s/p pacemaker placement, HTN, COPD with asthma, Prediabetes, hypothyroidism, PAF, GERD, CKD and known AAA with further enlargement presenting once more with intractable back pain. Patient was also noted to have acute on chronic anemia and subsequently noted to have multiple gastric ulcers on EGD with stigmata of bleed, likely related to patient's reports of melena. Acute GI Bleed Melena B12 deficiency anemia Iron deficiency anemia Several gastric ulcers Hgb of 7.7 on admission, downtrended to 6.5 in the AM of 01/17 Was transfused 1U pRBCs on 01/17, hgb currently back up to 7.8 Iron 11, Ferritin 7.9 FOBT ordered and pending No recent colonoscopy B12 also low at 142 Folate low normal Holding home Eliquis 5mg BID, resume as soon as able x1 B12 IM injection--transition to PO in am Plan to start folate/b-complex supplement when PO IV Venofer for iron supplementation GI consulted, appreciate recs -01/17 EGD: large hiatal hernia, several clean based ulcers in gastric antrum -Protonix 40 mg daily -Carafate 1 g 4 times daily for 4 weeks -Vascular Surgery consult/urgent f/u for AAA in setting of acute bleed- recommended: 'No AAA repair is indicated at this time. His right sided pain is most likely not related to this AAA.' Repeat upper endoscopy in 8 to 12 weeks Transfuse for hgb <7, or 8 +symptoms Continue to monitor Large hiatal hernia Denies any symptoms PPI as above Multilevel lumbosacral stenosis, spondylosis and scoliosis Multilevel disc bulges DDD of lumbar spine Intractable Back Pain Pt presenting once more for intractable RIGHT sided back pain Was seen for the same in the ED before being transferred to [facility] for concerning AAA on January 14, discharged from the ED there on the same day. No relief from home Percocet, tramadol No relief from lidocaine patch he was discharged from [facility] with, not yet followed up with Pain Management to whom he was referred Pain currently down to 5/10 on admission from 08/10 on ED presentation, states urinary symptoms have improved. Notes Hx of BPH Received IV Dilaudid 1mg, IV Dexamethasone 10mg, IV Toradol 15mg in the ED Continue with PO tylenol 1000mg q8h prn for mild pain, and IV Dilaudid 0.5mg q6h for mod-severe pain Continue home gabapentin 800mg qhs NO further doses of steroids/NSAIDs in setting of gastric ulcers noted on EGD Ortho spine consulted, appreciate recs. Noted the following: -MRI does demonstrate age-appropriate multilevel degenerative changes. -there is evidence of components of stenosis but not severe in nature -clinical presentation not consistent with neurogenic claudication -may be more musculoskeletal in nature with trochanteric bursitis and IT band irritation -not recommending any surgical interventions from orthopedic spine standpoint -Recommend physical therapy evaluation with interventional pain management PT/OT consulted- pt noted to be unsteady on his feet, recommending return home however Interventional Pain consulted- awaiting further recs. Infrarenal AAA Iliac artery aneurysm Noted on CT abd pelvis AAA increased in size to 5.2 x 4.6cm from last US in 2022 showed a 4.5 x 4.5 cm AAA. On 01/14, transferred to [facility], seen in the ED there by Vascular Surgery fellow, recommended statin and aspirin; determined not to be an "acute aortic syndrome" -scheduled followup on February 15 with Vascular Surgery at [facility] with Dr Russell Tight blood pressure control in setting of above (see below) Pt no longer smoking, states he quit about 20 years ago Continue statin, aspirin -Vascular consulted per GI recs after acute hgb drop. -CTA abdomen/pelvis noting the same as previous CT abd/pelvis -Vascular [facility] recommended the following: 'No AAA repair is indicated at this time. His right sided pain is most likely not related to this AAA.' HTN BP 171/81 on admission Likely elevated in setting of pain above Given 1 dose of Labetalol 10mg, BP 130/75 on re-check PO antihypertensives amlodipine 5mg and lisinopril 15mg held due to acute bleed, resumed on 03/20/24 Goal BP <140/90 in setting of AAA above, IV Labetalol 5mg ordered prn with parameters to be given for SBP >140 or DBP >90 Continue to monitor Paroxysmal atrial fibrillation SSS s/p pacemaker placement Not on rate controlling meds On Eliquis 5mg BID, holding in the setting of anemia above, resume as soon as able Consider decreasing dose to 2.5mg BID if kidney function worsens to 1.5 as pt >80 (see below) when Eliquis resumed Dehydration Acute on Chronic Kidney Disease Ketones noted on UA Cr wnl but elevated at 1.39 on admission, down from 1.41 a few days ago Patient states he has not been able to eat or drink for a few days NSS x2 bags Cr currently elevated once more, continue to monitor Encourage po intake/push fluids Hyponatremia Sodium of 132 on admission NSS as above Improving Monitor with AM labs Hyperglycemia Prediabetes Glucose elevated A1C 6.3% Trend Am glucose PCP followup, encourage dietary and exercise changes COPD/Asthma Follows with [facility] pulmonology Does not use oxygen at home, though they note he should Consider CT chest Oxygen supplementation as needed, wean as tolerated Continue home inhalers Continue to monitor GERD Holding home omeprazole Continue with pantoprazole above #Insomnia On klonipin prn at home, holding as pt on IV narcotics Also on gabapentin 800mg qhs which can be sedating Melatonin prn ordered, consider trazodone qhs. Resume klonipin as able Continue other home meds as ordered DVT prophylaxis: Holding eliquis in setting of anemia/possible GI bleed, SCDs ordered CODE STATUS: Full code Diet: HH/DMII Dispo: Per PT recommending return home Admission and Anticipated Discharge Date Admission Date: January 17, 2024 Subjective Pt was seen in the AM, right after breakfast. Denied acute concerns. Stated that he just felt tired. Review of Systems Review of Systems: All systems reviewed & are unremarkable except as noted in Subjective Physical Exam Physical Exam: General: Alert, oriented. No acute distress Skin: No noted rashes or bruises Psych: Appropriate mood and affect Neuro: Difficulty with getting into the bed from a standing position. Chest: Nontender to palpation. CV: RRR Resp: Breath sounds clear bilaterally, no increased effort of breathing. Abdomen: Soft, nontender, nondistended Extremities: No edema in lower extremities bilaterally. Results & Data Results & Data Vital Signs (Past 12 Hours) Vital Signs Temp Pulse Pulse Pulse Resp BP Pulse Ox 01/19/24 07:44 36.3 C L 78 18 147/69 H 93 01/19/24 07:43 01/19/24 07:11 63 01/19/24 00:00 62 01/18/24 23:20 36.6 C 84 18 132/67 90 01/18/24 22:09 O2 Del Method O2 Flow Rate 01/19/24 07:44 Room Air 01/19/24 07:43 Room Air 01/19/24 07:11 01/19/24 00:00 01/18/24 23:20 Nasal Cannula 2 01/18/24 22:09 2
[2024-01-19] MEDS: IRON SUCROSE 200 MG in 0.9 % SODIUM CHLORIDE 100 ML IV ONE (16:45)
[2024-01-19] MEDS: MELATONIN 3 MG TAB PO PRN (19:04)
[2024-01-20 06:34] LABS: Hematocrit (blood only) 25.6 % (42.0-52.0); Hemoglobin 8.2 g/dl (14.0-18.0); Mean Corpuscular Hemoglobin 26.1 pg (25.0-34.0); Mean Corpuscular Volume 81.5 fL (80.0-100.0); Mean Platelet Volume 9.7 fL (9.4-12.4); Platelet Count 232 K/uL (130-400); RDW Coefficient of Variation 15.5 % (11.5-14.5); RDW Standard Deviation 46.1 fL (36.4-46.3); Red Blood Count 3.14 M/uL (4.70-6.10); White Blood Count 6.17 K/ul (4.8-10.8)
[2024-01-20 06:40] LABS: Albumin Globulin Ratio 1.5 (0.9-2); Albumin Level 3.5 gm/dl (3.4-5.0); BUN Creatinine Ratio 13.8 (10-20); Bilirubin,Total 0.5 mg/dl (0.2-1.0); Calcium 8.8 mg/dl (8.6-10.3); Creatinine Clr Calc Pharmacy 47.5 ml/min; Est GFR (African American) 63.4 ml/min; Est GFR (Non-African American) 54.7 ml/min; Globulin 2.3 gm/dl (2.5-4.0); Magnesium 1.7 mg/dl (1.7-2.4); Potassium 3.8 mmol/L (3.5-5.1); Total Protein 5.8 gm/dl (6.0-8.3)
--- NOTE | 2024-01-20 08:03 | Consultation ---
Date of Consultation January 20, 2024 Assessment & Plan (1) Abdominal aortic aneurysm (AAA) 3.0 cm to 5.5 cm in diameter in male: No intervention is need for the AAA at this time. His pain is not related to the aneurysm. Recommend followup as scheduled with his current vascular surgery. Thank you very much for letting us participate in the care of this patient. History of Present Illness Reason for Consultation: AAA Attending Physician: Carolina Garcia MD History of Present Illness This is an 83yo male found to have an AAA upon admission of back pain. He has a known AAA being followed every 6 months at [facility]. His last usn was just before admission and the AAA measured 4.7 cm in size. This was not significantly changed according to his . At this admission he was found to be anemic. Upper GI showed gastric ulcers. There were no findings to suggest an aortoduodenal fistula with the aneurysm. He has been given one unit of prbc's and his hgb has been stable since. CTA showed a 4.8cm AAA with no rupture or stranding. Allergies Allergy/AdvReac Type Severity Reaction Status Date / Time amoxicillin Allergy Severe HIVES Verified 05/20/23 11:18 Sulfa (Sulfonamide Allergy Severe HIVES Verified 05/20/23 11:18 Antibiotics) Penicillins Allergy Intermediate HIVES Verified 05/20/23 11:18 levofloxacin [From Levaquin] AdvReac Intermediate swelling Verified 05/20/23 11:18 of neck and should area Home Medications Medication Instructions Recorded Confirmed Type amlodipine 5 mg tablet 5 mg PO DAILY 06/09/19 01/17/24 History ascorbic acid (vitamin C) 1,000 mg 1 gm PO DAILY 06/09/19 01/17/24 History tablet aspirin 81 mg tablet,delayed 81 mg PO DAILY 06/09/19 01/17/24 History release (Adult Low Dose Aspirin) atorvastatin 20 mg tablet (Lipitor) 20 mg PO DAILY 06/09/19 01/17/24 History cod liver oil 1 cap PO DAILY 06/09/19 01/17/24 History latanoprost 0.005 % eye drops 1 drops OPB QPM 06/09/19 01/17/24 History lisinopril 30 mg tablet 15 mg PO DAILY 06/09/19 01/17/24 History omeprazole 40 mg capsule,delayed 40 mg PO DAILY 06/09/19 01/17/24 History release tramadol 50 mg tablet 50 mg PO Q6H PRN Pain 06/09/19 01/17/24 History calcium carbonate 500 mg calcium 500 mg PO DAILY 02/13/22 01/17/24 History (1,250 mg) chewable tablet (Calcium 500) timolol maleate 0.5 % eye drops 1 drp OPR QAM 02/13/22 01/17/24 History cholecalciferol (vitamin D3) 50 50 mcg PO DAILY 02/25/22 01/17/24 History mcg (2,000 unit) capsule diclofenac sodium 1 % topical gel 4 g topical QID PRN Other 02/25/22 01/17/24 History fluticasone propionate 50 2 spray intranasal DAILY 02/25/22 01/17/24 History mcg/actuation nasal spray,suspension hydrocodone 5 mg-acetaminophen 325 1 tab PO Q6H PRN Pain 02/25/22 01/17/24 History mg tablet imiquimod 5 % topical cream packet 1 applic topical TID PRN Other 02/25/22 01/17/24 History triamcinolone acetonide 0.1 % 1 applic topical TID PRN Other 02/25/22 01/17/24 History topical cream gabapentin 800 mg tablet 800 mg PO HS 05/20/23 01/17/24 History albuterol sulfate 90 mcg/actuation 2 puff inhalation Q6H PRN 05/28/23 01/17/24 Rx aerosol inhaler (Ventolin HFA) shortness of breath or wheezing #3 Inhalers budesonide 0.25 mg/2 mL suspension 0.25 mg (2 mL) inhalation BID #180 05/28/23 01/17/24 Rx for nebulization mL guaifenesin 600 mg tablet, 600 mg PO BID PRN congestion #180 05/28/23 01/17/24 Rx extended release 12 hr (Mucinex) tabs montelukast 10 mg tablet 10 mg PO DAILY #90 tabs 05/28/23 01/17/24 Rx tiotropium 2.5 mcg-olodaterol 2.5 2 puff inhalation DAILY #3 Inhalers 05/28/23 01/17/24 Rx mcg/actuation mist for inhalation (Stiolto Respimat) apixaban 5 mg tablet (Eliquis) 5 mg PO BID 01/17/24 01/17/24 History clonazepam 0.5 mg tablet 0.5 mg PO HS insomnia or anxiety 01/17/24 01/17/24 History finasteride 5 mg tablet 5 mg PO DAILY 01/17/24 01/17/24 History ipratropium 0.5 mg-albuterol 3 mg 3 ml inhalation UD 01/17/24 01/17/24 History (2.5 mg base)/3 mL nebulization soln levothyroxine 75 mcg tablet 75 mcg PO DAILY 01/17/24 01/17/24 History tamsulosin 0.4 mg capsule 0.4 mg PO DAILY 01/17/24 01/17/24 History Patient History Medical History COPD (chronic obstructive pulmonary disease) Abdominal aortic aneurysm Hypothyroid Hypertension Surgical History H/O sinus surgery Hx of cholecystectomy H/O shoulder surgery Social History Smoking Status: Former smoker Tobacco Type: Cigarettes Age Started Using Tobacco: 14; Age Quit Using Tobacco: 52; packs per day: 1; Second Hand Exposure: Yes; Do You Dip or Chew Tobacco: No; Hx Alcohol Use: Yes Alcohol type: beer Alcohol type Comment: 3-4 max Hx Substance Use: Yes Last Used Substance: Unknown Preferred Language: Pashto Communication Ability: Effective Visual Impairment: No Limitations Hearing Ability: Use of Hearing Aid [employer] Sales Representative Required: No Beliefs That Will Affect Care: None marital status: Current Living Situation: Spouse current occupational status: retired Feels Safe at Home: Yes Assistive Devices: None Review of Systems Review of Systems: All systems reviewed & are unremarkable except as noted in HPI & below Physical Exam Constitutional: WD/WN, vitals as above Cardiovascular: Rate/Rhythm: regular rate and regular rhythm Extremities: normal capillary refill Gastrointestinal (Abdomen): Inspection/Auscultation: abdomen normal to inspection; abdomen not distended Percussion/Palpation: abdomen soft; abdomen nontender Psychiatric: Orientation: alert and oriented x 3 Results & Data Vital Signs (Past 12 Hours) Vital Signs Temp Pulse Pulse Resp BP BP Pulse Ox 01/20/24 07:52 36.8 C 59 L 16 162/76 H 95 01/20/24 07:03 72 01/20/24 04:22 36.8 C 61 20 128/72 97 01/20/24 00:00 62 01/19/24 23:50 36.9 C 61 20 118/64 94 01/19/24 20:04 36.5 C 65 20 126/78 92 O2 Del Method O2 Flow Rate 01/20/24 07:52 Room Air 01/20/24 07:03 01/20/24 04:22 Room Air 01/20/24 00:00 01/19/24 23:50 Room Air 01/19/24 20:04 Nasal Cannula 3
--- NOTE | 2024-01-20 11:52 | Pain Management Consultation ---
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 Imaging studies were reviewed. Physical exam findings appear to indicate his pain origin is most likely SI joint etiology. We discussed this diagnosis and potential treatment options with the patient. We discussed his potential candidacy for right SI joint injection for diagnostic/therapeutic evaluation in the outpatient setting. Patient may undergo pain clinic evaluation in the outpatient setting for scheduling purposes at his request. 2. Will recommend discontinuation of Percocet and initiating a trial of hydrocodone 5/325 mg 1 tablet p.o. every 6 hours as needed breakthrough pain 3. Recommend addition of Lidoderm patch applied to the right SI joint location 4. Patient will continue with gabapentin 800 mg nightly 5. Pain service will sign off on patient at this time. Patient may follow-up in the outpatient pain clinic at his request. History of Present Illness Reason for Consultation: Right-sided lumbosacral pain and right lower extremity pain Requesting Physician: Carolian Garcia MD Attending Physician: Carolina Garcia MD History of Present Illness Mr. Valles is an 83-year-old white male who was admitted with complaint of intractable right-sided low back pain with some radiation to the left lateral hip and proximal thigh location without known injury. Pain has been ongoing over the past 3 weeks. Patient was previously evaluated emergently on 01/15/2024 and was transferred to [facility] for concerning AAA. He was discharged same day with lidocaine patches and told to follow-up with PCP. There was no concern that his pain was related to the AAA. The patient returned to the emergency department on 01/17/2024 with similar complaints. Patient describes the pain as sharp, burning and aching in the right lumbosacral region extending in the lateral hip and thigh in a nondermatomal pattern. He denies pain below the level of the mid thigh. He rates the pain a 4/10 at its best and 10/10 at its worst. Patient was reporting interference of sleep quality and quantity. He is currently reporting his pain is minimal in the sitting and supine position. His pain can be present while lying supine, sitting, standing or walking. He is finding moderate benefit from Percocet. The patient has been evaluated by orthopedic spine surgeon upon this admission who deferred surgical intervention. He denies any claudication type complaints. He denies weaknesses in the lower extremity, footdrop or falls. He denies bowel or bladder incontinence. Patient does have comorbid chronic anemia with findings of multiple gastric ulcers per his report. Patient is unable to utilize NSAIDs or prednisone at this time. Patient indicates he is tolerating Percocet without notable side effects. Patient reports prior injection therapy completed by Dr. Diamond in the past without efficacy-unknown type of injection and timeframe. Patient has no further constitutional complaints. Plan of care discussed with Dr. Mari Ordonez. Pain Assessment Full Body Front + Back: 2 1. Right lumbosacral/gluteal pain 2. Pain rating to proximal posterior and lateral thigh Pain scale - at its best (0-10): 4 Pain scale - at its worst (0-10): 10 Allergies Allergy/AdvReac Type Severity Reaction Status Date / Time amoxicillin Allergy Severe HIVES Verified 05/20/23 11:18 Sulfa (Sulfonamide Allergy Severe HIVES Verified 05/20/23 11:18 Antibiotics) Penicillins Allergy Intermediate HIVES Verified 05/20/23 11:18 levofloxacin [From Levaquin] AdvReac Intermediate swelling Verified 05/20/23 11:18 of neck and should area Home Medications Medication Instructions Recorded Confirmed Type amlodipine 5 mg tablet 5 mg PO DAILY 06/09/19 01/17/24 History ascorbic acid (vitamin C) 1,000 mg 1 gm PO DAILY 06/09/19 01/17/24 History tablet aspirin 81 mg tablet,delayed 81 mg PO DAILY 06/09/19 01/17/24 History release (Adult Low Dose Aspirin) atorvastatin 20 mg tablet (Lipitor) 20 mg PO DAILY 06/09/19 01/17/24 History cod liver oil 1 cap PO DAILY 06/09/19 01/17/24 History latanoprost 0.005 % eye drops 1 drops OPB QPM 06/09/19 01/17/24 History lisinopril 30 mg tablet 15 mg PO DAILY 06/09/19 01/17/24 History omeprazole 40 mg capsule,delayed 40 mg PO DAILY 06/09/19 01/17/24 History release tramadol 50 mg tablet 50 mg PO Q6H PRN Pain 06/09/19 01/17/24 History calcium carbonate 500 mg calcium 500 mg PO DAILY 02/13/22 01/17/24 History (1,250 mg) chewable tablet (Calcium 500) timolol maleate 0.5 % eye drops 1 drp OPR QAM 02/13/22 01/17/24 History cholecalciferol (vitamin D3) 50 50 mcg PO DAILY 02/25/22 01/17/24 History mcg (2,000 unit) capsule diclofenac sodium 1 % topical gel 4 g topical QID PRN Other 02/25/22 01/17/24 History fluticasone propionate 50 2 spray intranasal DAILY 02/25/22 01/17/24 History mcg/actuation nasal spray,suspension hydrocodone 5 mg-acetaminophen 325 1 tab PO Q6H PRN Pain 02/25/22 01/17/24 History mg tablet imiquimod 5 % topical cream packet 1 applic topical TID PRN Other 02/25/22 01/17/24 History triamcinolone acetonide 0.1 % 1 applic topical TID PRN Other 02/25/22 01/17/24 History topical cream gabapentin 800 mg tablet 800 mg PO HS 05/20/23 01/17/24 History albuterol sulfate 90 mcg/actuation 2 puff inhalation Q6H PRN 05/28/23 01/17/24 Rx aerosol inhaler (Ventolin HFA) shortness of breath or wheezing #3 Inhalers budesonide 0.25 mg/2 mL suspension 0.25 mg (2 mL) inhalation BID #180 05/28/23 01/17/24 Rx for nebulization mL guaifenesin 600 mg tablet, 600 mg PO BID PRN congestion #180 05/28/23 01/17/24 Rx extended release 12 hr (Mucinex) tabs montelukast 10 mg tablet 10 mg PO DAILY #90 tabs 05/28/23 01/17/24 Rx tiotropium 2.5 mcg-olodaterol 2.5 2 puff inhalation DAILY #3 Inhalers 05/28/23 01/17/24 Rx mcg/actuation mist for inhalation (Stiolto Respimat) apixaban 5 mg tablet (Eliquis) 5 mg PO BID 01/17/24 01/17/24 History clonazepam 0.5 mg tablet 0.5 mg PO HS insomnia or anxiety 01/17/24 01/17/24 History finasteride 5 mg tablet 5 mg PO DAILY 01/17/24 01/17/24 History ipratropium 0.5 mg-albuterol 3 mg 3 ml inhalation UD 01/17/24 01/17/24 History (2.5 mg base)/3 mL nebulization soln levothyroxine 75 mcg tablet 75 mcg PO DAILY 01/17/24 01/17/24 History tamsulosin 0.4 mg capsule 0.4 mg PO DAILY 01/17/24 01/17/24 History Pain History Pain Intensity Pain scale - at its best (0-10): 4 Pain scale - at its worst (0-10): 10 Patient History Medical History (Updated 01/20/24 @ 12:04 by Michael Chance PA-C) Gastric ulcer Sacroiliac joint pain COPD (chronic obstructive pulmonary disease) Abdominal aortic aneurysm Hypothyroid Hypertension Surgical History H/O sinus surgery Hx of cholecystectomy H/O shoulder surgery Social History Smoking Status: Former smoker Tobacco Type: Cigarettes Age Started Using Tobacco: 14; Age Quit Using Tobacco: 52; packs per day: 1; Second Hand Exposure: Yes; Do You Dip or Chew Tobacco: No; Hx Alcohol Use: Yes Alcohol type: beer Alcohol type Comment: 3-4 max Hx Substance Use: Yes Last Used Substance: Unknown Preferred Language: Vietnamese Communication Ability: Effective Visual Impairment: No Limitations Hearing Ability: Use of Hearing Aid Research Investigator Required: No Beliefs That Will Affect Care: None marital status: Current Living Situation: Spouse current occupational status: retired Feels Safe at Home: Yes Assistive Devices: None Physical Exam 2 Physical Exam: General: Patient sitting quietly in exam room in no acute distress. Speech and thought process appropriate. Mood and affect appropriate. Cognition intact. Patient was able to self transfer, stand and walk about the room without limitation or increased discomfort appreciated. Head: Normocephalic and atraumatic. ENT: No evidence of nasal or oral mucosal lesions. Mucous membranes are moist. Eyes: Pupils equal round reactive to light. Abdomen: Soft and nondistended. No organomegaly. Bowel sounds active. Back/spine: Loss of lumbar lordosis. Nontender over the midline to palpation percussion. No focal facet joint tenderness to provocative testing. Patient is tender over the right SI joint to provocative testing and nontender on the left. Minimally tender throughout the right gluteal region. No appreciable spasm or myoneural trigger point. Lower extremities: Strength testing was 5/5 with dorsiflexion, plantarflexion and hip flexion/extension. Slight increase in right lumbosacral pain with resisted hip flexion. SLR negative bilaterally. Hips are nontender with internal/external rotation. ANGELA maneuver was positive on the right and negative on the left. Thigh thrust test was positive on the right negative on the left. Nontender over the greater trochanter on the left and minimally tender corresponding the right. Neurologic: Cranial nerves grossly intact. Ambulatory function normal. Results (Pain Clinic) Diagnostic Review MRI Findings: [place], [place] [phone] Magnetic Resonance Report Patient: TONIA VALLES Admit Date: 01/17/24 MR#: [id number] Address1: [address] [place] [address] Acct ID:[id number] Address2: Date: 1940 [facility] Zip: [place] [address] Age: 83 Location: ED Sex: M Room/Bed: Att Phy: Diagnosis: SEVERE BACK PAIN,RADIATING DOWN LEG Michelle Phy: Soraya Dumont DO Service Date: 01/17/24 [facility] Phy: Interpreting Phy: Willi Spence MDAdmit Phy: Ordering Phy: Farzana Jeffrey PA-C cc: ~ MRI OF THE LUMBAR SPINE WITHOUT IV CONTRAST CLINICAL HISTORY: Low back pain. Radiculopathy. COMPARISON STUDY: CT of the lumbar spine dated 01/15/2024. Chest CT dated 05/29/2022. Abdominal CT dated 01/15/2024. TECHNIQUE: MRI of the lumbar spine is performed utilizing various T1 and T2- weighted sequences in the axial and sagittal planes. IV contrast was not administered for this examination. The examination is modestly degraded by motion artifact. FINDINGS: Lumbar spine: There are 6 nonrib-bearing lumbar-type vertebral bodies. Vertebral body height is maintained through the lumbar spine. There is minimal retrolisthesis at L2-L3 and L3-L4. Alignment is otherwise preserved. There is straightening of the lumbar lordosis. Lumbar levocurvature is centered at L4. Large anterior and lateral marginal osteophytes are seen throughout. The transverse and spinous processes appear intact. There is no evidence of spondylolysis. No destructive bony lesion is seen. Chronic degenerative endplate change is seen at most lumbar levels. Endplate edema is seen at all levels between L1-L2 and L4-L5. Intervertebral discs: Disc desiccation and loss of height is seen throughout the lumbar spine. Loss of height is lolymgjq-dn-iudnmv at all levels between L2-L3 and L4-L5. Spinal cord: The visualized spinal cord is normal in morphology and signal intensity. The conus medullaris terminates at the L2-L3 interspace. The nerve roots of the cauda equina are normal in morphology. L1-L2: There is broad-based posterior disc bulge, which abuts the transiting nerve roots. There is no significant central canal stenosis. Lateral disc bulge contributes to bilateral subarticular stenosis. In conjunction with facet arthropathy, there is moderate to severe right neural foraminal stenosis. The left neural foramen is patent. L2-L3: There is broad-based posterior disc bulge, which abuts the transiting nerve roots. There is no significant acquired compromise of the central canal. Lateral disc bulges contribute to bilateral subarticular stenosis, left greater than right. This likely impinges on the exiting left L1 nerve root. In conjunction with facet arthropathy, there is pyzrgjfx-gy-oizxzo left neural foraminal stenosis. The right neural foramen is patent. L3-L4: There is broad-based posterior disc bulge, which abuts the transiting nerve roots. Ojmb-hc-ydtbjiug central canal stenosis is seen at this level with a minimum AP canal diameter of 5 mm. Lateral disc bulge contributes to bilateral subarticular stenosis, right greater than left. This may impinge on the exiting right L2 nerve root. In conjunction with facet arthropathy, there is aezg-xy-kqocorgb bilateral neural foraminal stenosis. L4-L5: There is broad-based posterior disc bulge, which abuts the transiting nerve roots. In conjunction with hypertrophy of the ligamentum flavum, there is blra-cf-bwscyfow central canal stenosis at this level with a minimum AP diameter of 6 mm. Lateral disc bulge contributes to bilateral subarticular stenosis, right greater than left. This may impinge on the exiting right L3 nerve root. In conjunction with facet arthropathy, there is moderate right neural foraminal stenosis. The left neural foramen is patent. L5 to L6: There is minimal posterior disc bulge. The central canal is clear. Lateral disc bulge contributes to mild bilateral subarticular stenosis. In conjunction with facet arthropathy, there is hawk-so-aqvafryp right neural foraminal stenosis. The left neural foramen is patent. L6-S1: The central canal is clear. Facet arthropathy is of no consequence. The neural foramina are patent. Sacrum: The visualized sacrum is normal in morphology and signal intensity. Soft tissues: There is fatty atrophy of the paraspinous musculature. An infrarenal abdominal aortic aneurysm is partially visualized. IMPRESSION: 1. There are 6 nonrib-bearing lumbar-type vertebral bodies. 2. Multilevel lumbosacral spondylosis and scoliosis as above. See discussion for detailed level by level analysis. 3. Degenerative disc disease as above with multilevel degenerative endplate change and edema. 4. No destructive bony process is seen. 5. An infrarenal abdominal aortic aneurysm is noted. This was better assessed on the recent abdominal CT scan. Dictated: 01/17/2024 9:25 AM Transcribed: 01/17/2024 9:52 AM Huey [id number] [email or web address] Electronically signed by: Willi Spence M.D. 01/17/2024 10:42 AM Dictated: 01/17/24 0925 Transcribed: 01/17/[address] Findings: [facility], [place] [phone] CT Scan Report Patient: TONIA VALLES Admit Date: 01/17/24 MR#: [id number] Address1: [address] Acct ID:[id number] Address2: Date: 1940 [facility] Zip: [facility] [place] [address] Age: 83 Location: Sex: M Room/Bed: [facility] Att Phy: Daphnie Saleh MD Diagnosis: INTRACTABLE BACK PAIN Michelle Phy: Soraya Dumont DO Service Date: 01/18/24 [facility] Phy: Interpreting Phy: Kevin Lozada MDAit Phy: Carolina Garcia MD Ordering Phy: Bandar Foreman M.D. cc: ~ CT angio abd pelvis wo/w con CLINICAL HISTORY: aaa with back pain TECHNIQUE: Multidetector row helical CT of the abdomen and pelvis was performed, following intravenous administration of iodinated contrast. No oral contrast was administered. Automated dose lowering techniques and/or adjustment according to patient size were utilized for this exam. Coronal and sagittal reformations were obtained. MIP and 3D volume rendered reconstructions were obtained. CT DOSE: 2214.89 mGy.cm Comparison: Comparison is made to CT abdomen pelvis 01/15/2024 FINDINGS: Lower chest: Interstitial thickening is seen. Liver: Unremarkable. No focal lesions are seen. Gallbladder and biliary tree: Patient is status post cholecystectomy. Physiologic prominence of the biliary ducts is noted. Pancreas: Unremarkable, no focal lesions. Spleen: Unremarkable. Adrenals: Unremarkable. Kidneys and ureters: Subcentimeter hypodensities are too small to characterize. Bladder: Diffuse homogeneous wall thickening is seen. Reproductive organs: Prostatic calcifications are seen which may represent prior hemorrhage or granulomatous disease. Meniscectomy clips are seen. Bowel: Diverticulosis is seen without diverticulitis. The appendix is normal. There is a moderate hiatal hernia. Lymph nodes Retroperitoneal: Unremarkable. Pelvic: Unremarkable. Mesenteric: Unremarkable. Peritoneum: Normal. Abdominal wall: A fat-containing umbilical hernia is seen. Right fat-containing inguinal hernia is seen. Bones: Unremarkable. CT angiogram: Infrarenal aneurysm measures up to 48 mm. There is a 47 mm rightward oriented aortic aneurysm as well. 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 There is evidence of scattered atherosclerotic calcifications of the abdominal aorta and its major branches. The origins of the celiac axis, superior mesenteric, inferior mesenteric and bilateral renal arteries are patent. IMPRESSION: 1. Infrarenal aortic aneurysm without evidence of dissection or acute abnormality. Additional findings as above. 2. Diverticulosis without diverticulitis. ACT 112: Negative or not required by law. Electronically signed by: Kevin Lozada M.D. 01/18/2024 2:54 PM Dictated: 01/18/24 1440 Transcribed: 01/18/24 1440
[2024-01-20] MEDS: LIDOCAINE 5% 1 PATCH TD SCH (12:24)
--- NOTE | 2024-01-20 14:03 | Discharge Summary ---
Discharge Summary Date of Service January 20, 2024 Notes For Next Care Provider Per GI for GI Bleed: -Protonix 40 mg daily -Carafate 1 g 4 times daily for 4 weeks -Repeat upper endoscopy in 8 to 12 weeks NO further doses of steroids/NSAIDs in setting of gastric ulcers noted on EGD Please continue to monitor hgb levels after discharge, home Eliquis 5mg BID also resumed. For Back pain: Pt seen by Interventional Spine surgeon: Recommended physical therapy evaluation with interventional pain management Per Pain Management: - pain origin is most likely from the SI joint -possible right SI joint injection for diagnostic/therapeutic evaluation in t he outpatient setting. Please follow up with Pain Management for this. -Patient may undergo pain clinic evaluation in the outpatient setting for scheduling purposes at his request. -discontinuation of Percocet and trial of hydrocodone 5/325mg q6h prn for breakthrough pain Pt discharged with walker and home PT/OT services. Please ensure Vascular Surgery follow up as scheduled for AAA. Pt has scheduled followup on February 15 with Vascular Surgery at [facility] with Dr Russell. Consider transition off of prn lorazepam with chronic use of narcotics and gabapentin qhs. Medication Changes From Visit B12 and folate daily supplements Hydrocodone-acetaminophen 5/325mg q6h prn for breakthrough pain Lidocaine patch 5% to be applied to right SI area pantoprazole 40mg daily sucralfate 100mg qid daily for 4 weeks Admission HPI Per Admitting Provider Pt is an 83yoM with PMHx significant for SSS s/p pacemaker placement, HTN, COPD with asthma, Prediabetes, hypothyroidism, PAF, GERD, CKD and known AAA with further enlargement presenting once more with intractable back pain. Pt presenting once more for intractable RIGHT sided back pain. States that he was seen for the same in the ED about two days ago before being transferred to [facility] for concerning AAA on January 14, discharged from the ED there on the same day. States that he was discharged with lidocaine patches and told to follow up with pcp. Per , he was not comfortable at home. Pacing and walking in an attempt to relieve the pain. Pt states that he has not been able to sleep for many nights. No relief from home Percocet, tramadol. No relief from lidocaine patch he was discharged from [facility] with, not yet followed up with Pain Management to whom he was referred Pain currently down to 5/10 from 08/10 on ED presentation, states urinary sym ptoms have improved. Notes Hx of BPH. States he would just like to sleep tonight. states that the anemia is known and being worked up by pt's PCP. Per , pt was told that he would need a colonoscopy but refused. They note that they have not seen micki blood in the stools but his stools have been "almost black". Denies dizziness or episodes of syncope. Does have some SOB but they note he is supposed to use oxygen, and that pulmonology is working with them to get it at home. Received IV Dilaudid 1mg, IV Dexamethasone 10mg, IV Toradol 15mg in the ED Admission Exam Per Admitting Provider General: Alert, oriented. No acute distress Skin: No noted rashes or bruises Psych: Appropriate mood and affect Neuro: Difficulty with getting into the bed from a standing position. Straight leg raise negative on both the right and left HEENT: NC/AT Chest: Nontender to palpation. CV: RRR Resp: Breath sounds clear bilaterally, no increased effort of breathing. Abdomen: Soft, nontender, nondistended Extremities: No edema in lower extremities bilaterally. Principal Dx & Hospital Course #1 = Principal Diagnosis (1) Intractable back pain: (2) Degenerative joint disease (DJD) of lumbar spine: (3) Spinal stenosis: (4) Abdominal aortic aneurysm (AAA) 3.0 cm to 5.5 cm in diameter in male: (5) SSS (sick sinus syndrome): (6) Ex-smoker: (7) Asthma with COPD (chronic obstructive pulmonary disease): (8) Hypertension: (9) Hypothyroid: (10) Sacroiliac joint pain: Plan Mr. Valles is an 83yoM with PMHx significant for SSS s/p pacemaker placement, HTN, COPD with asthma, Prediabetes, hypothyroidism, PAF, GERD, CKD and known AAA with further enlargement presenting once more with intractable back pain. Patient was also noted to have acute on chronic anemia and subsequently noted to have multiple gastric ulcers on EGD with stigmata of bleed, likely related to patient's reports of melena. Acute GI Bleed Melena B12 deficiency anemia Iron deficiency anemia Several gastric ulcers Hgb of 7.7 on admission, downtrended to 6.5 in the AM of 01/17 Was transfused 1U pRBCs on 01/17, hgb currently back up to 7.8 Iron low at 11, Ferritin 7.9 FOBT was ordered but not collected during his stay No recent colonoscopy B12 also low at 142 Folate low normal Held home Eliquis 5mg BID, resumed on discharge B12 IM injection x1--transitioned to PO On folic acid supplement as well s/p IV Venofer for iron supplementation, iron level 323 on discharge GI consulted, appreciate recs -01/17 EGD: large hiatal hernia, several clean based ulcers in gastric antrum -Protonix 40 mg daily -Carafate 1 g 4 times daily for 4 weeks -Vascular Surgery consult/urgent f/u for AAA in setting of acute bleed. vascular jeffrey saw pt in the hospital and recommended the following: 'No AAA repair is indicated at this time. His right sided pain is most likely not related to this AAA.' Repeat upper endoscopy in 8 to 12 weeks Transfuse for hgb <7, or 8 +symptoms Eliquis resumed on discharge, pt instructed no more nsaids/steroids for pain. PCP followup for close hgb monitoring after d/c especially in setting of resuming home Eliquis for PAF (see below) Large hiatal hernia Denies any symptoms PPI as above PCP f/u Multilevel lumbosacral stenosis, spondylosis and scoliosis Multilevel disc bulges DDD of lumbar spine Intractable Back Pain Pt presenting once more for intractable RIGHT sided back pain Was seen for the same in the ED before being transferred to [facility] for concerning AAA on January 14, discharged from the ED there on the same day. No relief from home Percocet, tramadol No relief from lidocaine patch he was discharged from [facility] with, not yet followed up with Pain Management to whom he was referred Pain currently down to 5/10 on admission from 10/10 on ED presentation, states urinary symptoms have improved. Notes Hx of BPH Received IV Dilaudid 1mg, IV Dexamethasone 10mg, IV Toradol 15mg in the ED Continued with PO tylenol 1000mg q8h prn for mild pain, and IV Dilaudid 0.5mg q6h for mod-severe pain Continue home gabapentin 800mg qhs NO further doses of steroids/NSAIDs in setting of gastric ulcers noted on EGD Ortho spine consulted, appreciate recs. Noted the following: -MRI does demonstrate age-appropriate multilevel degenerative changes. -there is evidence of components of stenosis but not severe in nature -clinical presentation not consistent with neurogenic claudication -may be more musculoskeletal in nature with trochanteric bursitis and IT band irritation -not recommending any surgical interventions from orthopedic spine standpoint -Recommend physical therapy evaluation with interventional pain management PT/OT consulted- pt noted to be unsteady on his feet, recommending return home however. Pt discharged with walker and home PT/OT services. Interventional Pain consulted - pain origin is most likely from the SI joint -possible right SI joint injection for diagnostic/therapeutic evaluation in the outpatient setting. Please follow up with Pain Management for this. -Patient may undergo pain clinic evaluation in the outpatient setting for s cheduling purposes at his request. -discontinuation of Percocet and trial of hydrocodone 5/325mg q6h prn for breakthrough pain PCP followup with Pain Management follow up after discharge Infrarenal AAA Iliac artery aneurysm Noted on CT abd pelvis AAA increased in size to 5.2 x 4.6cm from last US in 2022 showed a 4.5 x 4.5 cm AAA. On 01/14, transferred to [facility], seen in the ED there by Vascular Surgery fellow, recommended statin and aspirin; determined not to be an "acute aortic syndrome" -scheduled followup on February 15 with Vascular Surgery at [facility] with Dr Russell Tight blood pressure control in setting of above (see below) Pt no longer smoking, states he quit about 20 years ago Continue statin, aspirin -Vascular consulted per GI recs after acute hgb drop. -CTA abdomen/pelvis noting the same as previous CT abd/pelvis -Vascular [facility] recommended the following: 'No AAA repair is indicated at this time. His right sided pain is most likely not related to this AAA.' Please ensure follow up on February 15 with Vascular Surgery at [facility] with Dr Russell. HTN BP 171/81 on admission Likely elevated in setting of pain above Given 1 dose of Labetalol 10mg, BP 130/75 on re-check PO antihypertensives amlodipine 5mg and lisinopril 15mg held due to acute bleed, resumed on 01/19/24 Goal BP <140/90 in setting of AAA above PCP followup for continued control Paroxysmal atrial fibrillation SSS s/p pacemaker placement Not on rate controlling meds On Eliquis 5mg BID, held in the setting of anemia above Resumed on discharge Consider decreasing dose to 2.5mg BID if kidney function worsens to 1.5 as pt >80 when Eliquis resumed cardiology follow up recommended. Dehydration Acute on Chronic Kidney Disease Ketones noted on UA Cr wnl but elevated at 1.39 on admission, down from 1.41 a few days ago Patient states he has not been able to eat or drink for a few days NSS x2 bags Cr wnl on discharge at 1.23 Encourage po intake/push fluids Hyponatremia Sodium of 132 on admission NSS as above Improving, 136 on discharge PCP f/u for further monitoring Hyperglycemia Prediabetes Glucose elevated A1C 6.3% PCP followup, encourage dietary and exercise changes COPD/Asthma Follows with [facility] pulmonology Does not use oxygen at home, though they note he should Consider CT chest Oxygen supplementation as needed, wean as tolerated Continue home inhalers Pulmonology followup GERD Discontinued home omeprazole Continue with pantoprazole per GI recs above. Insomnia On klonipin prn at home, held as pt on narcotics as well Also on gabapentin 800mg qhs which can be sedating Melatonin prn ordered, consider trazodone qhs. Resumed klonipin on discharge with pcp followup for consideration of alternatives Continue other home meds as ordered Discharge Exam General: Alert, oriented. No acute distress Skin: No noted rashes or bruises Psych: Appropriate mood and affect Neuro: Difficulty with getting into the bed from a standing position. Chest: Nontender to palpation. CV: RRR Resp: Breath sounds clear bilaterally, no increased effort of breathing. Abdomen: Soft, nontender, nondistended Extremities: No edema in lower extremities bilaterally. Updated Medication List Medication Instructions Recorded Confirmed Type amlodipine 5 mg tablet 5 mg PO DAILY 06/09/19 01/17/24 History ascorbic acid (vitamin C) 1,000 mg 1 gm PO DAILY 06/09/19 01/17/24 History tablet aspirin 81 mg tablet,delayed 81 mg PO DAILY 06/09/19 01/17/24 History release (Adult Low Dose Aspirin) atorvastatin 20 mg tablet (Lipitor) 20 mg PO DAILY 06/09/19 01/17/24 History cod liver oil 1 cap PO DAILY 06/09/19 01/17/24 History latanoprost 0.005 % eye drops 1 drops OPB QPM 06/09/19 01/17/24 History lisinopril 30 mg tablet 15 mg PO DAILY 06/09/19 01/17/24 History tramadol 50 mg tablet 50 mg PO Q6H PRN Pain 06/09/19 01/17/24 History calcium carbonate 500 mg calcium 500 mg PO DAILY 02/13/22 01/17/24 History (1,250 mg) chewable tablet (Calcium 500) timolol maleate 0.5 % eye drops 1 drp OPR QAM 02/13/22 01/17/24 History cholecalciferol (vitamin D3) 50 50 mcg PO DAILY 02/25/22 01/17/24 History mcg (2,000 unit) capsule diclofenac sodium 1 % topical gel 4 g topical QID PRN Other 02/25/22 01/17/24 History fluticasone propionate 50 2 spray intranasal DAILY 02/25/22 01/17/24 History mcg/actuation nasal spray,suspension hydrocodone 5 mg-acetaminophen 325 1 tab PO Q6H PRN Pain 02/25/22 01/17/24 History mg tablet imiquimod 5 % topical cream packet 1 applic topical TID PRN Other 02/25/22 01/17/24 History triamcinolone acetonide 0.1 % 1 applic topical TID PRN Other 02/25/22 01/17/24 History topical cream gabapentin 800 mg tablet 800 mg PO HS 05/20/23 01/17/24 History albuterol sulfate 90 mcg/actuation 2 puff inhalation Q6H PRN 05/28/23 01/17/24 Rx aerosol inhaler (Ventolin HFA) shortness of breath or wheezing #3 Inhalers budesonide 0.25 mg/2 mL suspension 0.25 mg (2 mL) inhalation BID #180 05/28/23 01/17/24 Rx for nebulization mL guaifenesin 600 mg tablet, 600 mg PO BID PRN congestion #180 05/28/23 01/17/24 Rx extended release 12 hr (Mucinex) tabs montelukast 10 mg tablet 10 mg PO DAILY #90 tabs 05/28/23 01/17/24 Rx tiotropium 2.5 mcg-olodaterol 2.5 2 puff inhalation DAILY #3 Inhalers 05/28/23 01/17/24 Rx mcg/actuation mist for inhalation (Stiolto Respimat) apixaban 5 mg tablet (Eliquis) 5 mg PO BID 01/17/24 01/17/24 History clonazepam 0.5 mg tablet 0.5 mg PO HS insomnia or anxiety 01/17/24 01/17/24 History finasteride 5 mg tablet 5 mg PO DAILY 01/17/24 01/17/24 History ipratropium 0.5 mg-albuterol 3 mg 3 ml inhalation UD 01/17/24 01/17/24 History (2.5 mg base)/3 mL nebulization soln levothyroxine 75 mcg tablet 75 mcg PO DAILY 01/17/24 01/17/24 History tamsulosin 0.4 mg capsule 0.4 mg PO DAILY 01/17/24 01/17/24 History cyanocobalamin (vitamin B-12) 500 500 mcg PO QAM #30 tabs 01/20/24 Rx mcg tablet folic acid 1 mg tablet 1 mg PO QAM #30 tabs 01/20/24 Rx hydrocodone 5 mg-acetaminophen 325 1 tab PO Q6H PRN pain #16 tabs 01/20/24 Rx mg tablet lidocaine 5 % topical patch 1 patch topical DAILY #30 ea 01/20/24 Rx pantoprazole 40 mg tablet,delayed 40 mg PO QAM #30 tabs 01/20/24 Rx release sucralfate 100 mg/mL oral 1 g (10 mL) PO QID #1,000 mL 01/20/24 Rx suspension Hospital Stay Data Consultations 01/17/24 12:12 ED Decision to Admit Stat 01/17/24 13:20 Consult Orthopedic Spine Surgery Routine 01/17/24 14:35 Consult Gastroenterology Routine 01/18/24 11:29 Consult Vascular Surgery Routine 01/19/24 15:41 Consult Pain Management Routine Procedures Performed Operation Date: 01/18/24 16:45 Actual Procedures p Esophagogastroduodenoscopy - Liset Johnson DO Diagnostic Imagining Performed 01/17/24 07:22 MR lumbar spine wo con Stat 01/18/24 12:29 CTA abd pelvis wo/w con [CT angio abd pelvis wo/w con] Stat Lumbar Spine MRI 01/17/24 07:22 MRI OF THE LUMBAR SPINE WITHOUT IV CONTRAST CLINICAL HISTORY: Low back pain. Radiculopathy. COMPARISON STUDY: CT of the lumbar spine dated 01/15/2024. Chest CT dated 05/29/2022. Abdominal CT dated 01/15/2024. TECHNIQUE: MRI of the lumbar spine is performed utilizing various T1 and T2- weighted sequences in the axial and sagittal planes. IV contrast was not administered for this examination. The examination is modestly degraded by motion artifact. FINDINGS: Lumbar spine: There are 6 nonrib-bearing lumbar-type vertebral bodies. Vertebral body height is maintained through the lumbar spine. There is minimal retrolisthesis at L2-L3 and L3-L4. Alignment is otherwise preserved. There is straightening of the lumbar lordosis. Lumbar levocurvature is centered at L4. Large anterior and lateral marginal osteophytes are seen throughout. The transverse and spinous processes appear intact. There is no evidence of spondylolysis. No destructive bony lesion is seen. Chronic degenerative endplate change is seen at most lumbar levels. Endplate edema is seen at all levels between L1-L2 and L4-L5. Intervertebral discs: Disc desiccation and loss of height is seen throughout the lumbar spine. Loss of height is ruohdvto-cb-brlufp at all levels between L2-L3 and L4-L5. Spinal cord: The visualized spinal cord is normal in morphology and signal intensity. The conus medullaris terminates at the L2-L3 interspace. The nerve roots of the cauda equina are normal in morphology. L1-L2: There is broad-based posterior disc bulge, which abuts the transiting nerve roots. There is no significant central canal stenosis. Lateral disc bulge contributes to bilateral subarticular stenosis. In conjunction with facet arthropathy, there is moderate to severe right neural foraminal stenosis. The left neural foramen is patent. L2-L3: There is broad-based posterior disc bulge, which abuts the transiting nerve roots. There is no significant acquired compromise of the central canal. Lateral disc bulges contribute to bilateral subarticular stenosis, left greater than right. This likely impinges on the exiting left L1 nerve root. In conjunction with facet arthropathy, there is dvnvtykw-is-fwtxkd left neural foraminal stenosis. The right neural foramen is patent. L3-L4: There is broad-based posterior disc bulge, which abuts the transiting nerve roots. Mvtj-oz-oblaelyw central canal stenosis is seen at this level with a minimum AP canal diameter of 5 mm. Lateral disc bulge contributes to bilateral subarticular stenosis, right greater than left. This may impinge on the exiting right L2 nerve root. In conjunction with facet arthropathy, there is lrgz-ik-kbehrmgg bilateral neural foraminal stenosis. L4-L5: There is broad-based posterior disc bulge, which abuts the transiting nerve roots. In conjunction with hypertrophy of the ligamentum flavum, there is apjo-ub-mhnroiyh central canal stenosis at this level with a minimum AP diameter of 6 mm. Lateral disc bulge contributes to bilateral subarticular stenosis, right greater than left. This may impinge on the exiting right L3 nerve root. In conjunction with facet arthropathy, there is moderate right neural foraminal stenosis. The left neural foramen is patent. L5 to L6: There is minimal posterior disc bulge. The central canal is clear. Lateral disc bulge contributes to mild bilateral subarticular stenosis. In conjunction with facet arthropathy, there is baxc-pp-jpggsbvt right neural foraminal stenosis. The left neural foramen is patent. L6-S1: The central canal is clear. Facet arthropathy is of no consequence. The neural foramina are patent. Sacrum: The visualized sacrum is normal in morphology and signal intensity. Soft tissues: There is fatty atrophy of the paraspinous musculature. An infrarenal abdominal aortic aneurysm is partially visualized. IMPRESSION: 1. There are 6 nonrib-bearing lumbar-type vertebral bodies. 2. Multilevel lumbosacral spondylosis and scoliosis as above. See discussion for detailed level by level analysis. 3. Degenerative disc disease as above with multilevel degenerative endplate change and edema. 4. No destructive bony process is seen. 5. An infrarenal abdominal aortic aneurysm is noted. This was better assessed on the recent abdominal CT scan. Dictated: 01/17/2024 9:25 AM Transcribed: 01/17/2024 9:52 AM Huey [id number] Electronically signed by: Willi Spence M.D. 01/17/2024 10:42 AM Chest X-Ray 01/17/24 13:53 XR chest 1V portable HISTORY: increased oxygen need, shortness of breath COMPARISON: Chest 01/14/2024. FINDINGS: No pneumothorax. No pleural effusions. There are low lung volumes. The heart remains enlarged. No evidence for pulmonary edema. A few bibasilar linear densities favor subsegmental atelectasis. This is similar to the prior study. No new focal lung consolidations to suggest a pneumonia. There is a left-sided dual-chamber pacemaker. A moderate hiatus hernia is again noted. There are calcifications within the aortic knob. IMPRESSION: No significant change compared to the prior study. No acute process. ACT 112: Negative or not required by law. Electronically signed by: Johan Lang M.D. 01/17/2024 2:47 PM Abdomen/Pelvis CTA 01/18/24 12:29 CT angio abd pelvis wo/w con CLINICAL HISTORY: aaa with back pain TECHNIQUE: Multidetector row helical CT of the abdomen and pelvis was performed, following intravenous administration of iodinated contrast. No oral contrast was administered. Automated dose lowering techniques and/or adjustment according to patient size were utilized for this exam. Coronal and sagittal reformations were obtained. MIP and 3D volume rendered reconstructions were obtained. CT DOSE: 2214.89 mGy.cm Comparison: Comparison is made to CT abdomen pelvis 01/15/2024 FINDINGS: Lower chest: Interstitial thickening is seen. Liver: Unremarkable. No focal lesions are seen. Gallbladder and biliary tree: Patient is status post cholecystectomy. Physiologic prominence of the biliary ducts is noted. Pancreas: Unremarkable, no focal lesions. Spleen: Unremarkable. Adrenals: Unremarkable. Kidneys and ureters: Subcentimeter hypodensities are too small to characterize. Bladder: Diffuse homogeneous wall thickening is seen. Reproductive organs: Prostatic calcifications are seen which may represent prior hemorrhage or granulomatous disease. Meniscectomy clips are seen. Bowel: Diverticulosis is seen without diverticulitis. The appendix is normal. There is a moderate hiatal hernia. Lymph nodes Retroperitoneal: Unremarkable. Pelvic: Unremarkable. Mesenteric: Unremarkable. Peritoneum: Normal. Abdominal wall: A fat-containing umbilical hernia is seen. Right fat-containing inguinal hernia is seen. Bones: Unremarkable. CT angiogram: Infrarenal aneurysm measures up to 48 mm. There is a 47 mm rightward oriented aortic aneurysm as well. 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 There is evidence of scattered atherosclerotic calcifications of the abdominal aorta and its major branches. The origins of the celiac axis, superior mesenteric, inferior mesenteric and bilateral renal arteries are patent. IMPRESSION: 1. Infrarenal aortic aneurysm without evidence of dissection or acute abnormality. Additional findings as above. 2. Diverticulosis without diverticulitis. ACT 112: Negative or not required by law. Electronically signed by: Kevin Lozada M.D. 01/18/2024 2:54 PM Discharge Instructions Given to Patient (Per Discharging Provider) Mr. Valles, You were admitted because of your back pain. You were seen by the spine surgeon who believed that your symptoms were more related to trochanteric bursitis and IT band irritation. You were evaluated further by pain management while you were here and they recommended the following: -Your pain origin is most likely from the SI joint -possible right SI joint injection for diagnostic/therapeutic evaluation in the outpatient setting. Please follow up with Pain Management for this. -Patient may undergo pain clinic evaluation in the outpatient setting for scheduling purposes at his request. -discontinuation of Percocet and trial of hydrocodone 5/325 mg 1 tablet p.o. every 6 hours as needed for breakthrough pain -Recommend addition of Lidoderm patch applied to the right SI joint location -continue with gabapentin 800 mg nightly You also had an acute GI bleed while you were here. You were seen by the concrete grinder operator and you had an EGD done that showed gastric ulcers. Please do NOT take any ibuprofen, Advil, Motrin or steroids at home to help with pain as those medications can make you bleed once more. Tylenol is ok to use. The Systems Specialist also recommended the following: -Protonix 40 mg daily -Carafate 1 g 4 times daily for 4 weeks -Repeat upper endoscopy in 8 to 12 weeks Your folate, b12 and iron levels were also low. We started you on supplements to help. We replaced your iron levels while you were here. Please keep follow up with Gastroenterology as scheduled after discharge. You were also noted to have an abdominal aortic aneurysm. Please keep follow up with Vascular Surgery in January. We are also discharging you home with a walker and PT/OT services. Please keep close follow up with your primary care provider after discharge. Please do not hesitate to come back to the emergency room if your symptoms worsen or return. It was a pleasure taking care of you while you were here. Total Time Total Time Spent Total Time Spent (In Minutes): > 30 minutes
[2024-01-20] MEDS: HYDROCODONE/ACETAMOPHEN 5/325MG TAB PO PRN (14:15)
== END 2024-01-20 16:33 | disposition home health service (06) | DRG 378 ==
LOC: ED 06:55 → EDINP 12:03 → SUATTDRO 12:03 → EDINP 12:23 → 2N 20:53